=== PATIENT | male | born 1955 | race Caucasian/White ===

== ENCOUNTER 2017-05-10 22:55 | Observation (INO) | payer MEDICARE, MEDICAID ==
[2017-05-10] MEDS ORDERED: Furosemide 40 MG/4 ML VIAL IVPUSH ONE (23:37)
--- NOTE | 2017-05-11 00:28 | EDM.PDOC ---
ED HPI GENERAL MEDICAL PROBLEM - General Chief Complaint: General Stated Complaint: BLE edema Time Seen by Provider: 05/10/17 23:00 - History of Present Illness INITIAL COMMENTS - FREE TEXT/NARRATIVE: C/O of severe lower extremity edema and a 8 pound weight gain in the last 4 days. Onset: Gradual Duration: Day(s): Location: Reports: Lower Extremity, Left, Lower Extremity, Right Quality: Reports: Dull - Related Data Allergies Allergy/AdvReac Type Severity Reaction Status Date / Time No Known Allergies Allergy Verified 05/10/17 23:03 Home Meds: Home Meds ALPRAZolam [Alprazolam] 1 tab PO ASDIRECTED PRN 04/07/17 [History] Insulin Aspart [NovoLOG] 1 injection SUBCUT TID 04/07/17 [History] Insulin Glarg,Human.Rec.Analog [LantUS Solostar] 60 units SUBCUT QPM 04/07/17 [ History] Metoprolol Tartrate 50 mg PO BID 04/07/17 [History] Omeprazole 20 mg PO DAILY 04/07/17 [History] Rosuvastatin [Crestor] 10 mg PO DAILY 04/07/17 [History] Sertraline [Zoloft] 50 mg PO DAILY 04/07/17 [History] Zolpidem [Ambien] 10 mg PO BEDTIME PRN 04/07/17 [History] amLODIPine [Norvasc] 5 mg PO DAILY 04/07/17 [History] oxyCODONE 10 mg PO ASDIRECTED PRN 04/07/17 [History] traMADol [Ultram] 50 mg PO Q6H 04/07/17 [History] Past Medical History Cardiovascular History: Reports: Hypertension, Stents Neurological History: Reports: Neuropathy, Diabetic Endocrine/Metabolic History: Reports: Diabetes, Type II Dermatologic History: Reports: Other (See Below) Other Dermatologic History: HX OF DIABETIC FOOT ULCER Social & Family History - Family History Family Medical History: Noncontributory - Tobacco Use Smoking Status *Q: Never Smoker Second Hand Smoke Exposure: No ED ROS GENERAL - Review of Systems Review Of Systems: ROS reveals no pertinent complaints other than HPI. ED EXAM, GENERAL - Physical Exam Exam: See Below Free Text/Narrative:: 4 + pitting edema from the knees down. Exam Limited By: No Limitations General Appearance: Alert, WD/WN Nose: Normal Inspection Throat/Mouth: Normal Inspection Head: Atraumatic Respiratory/Chest: Crackles Cardiovascular: Normal Peripheral Pulses Back Exam: Normal Inspection Extremities: Normal Inspection Neurological: Alert, Oriented Psychiatric: Normal Affect Skin Exam: Warm, Dry Course - Vital Signs Last Recorded V/S: Last Vital Signs Temp 97.2 F 05/10/17 23:20 Pulse 76 05/10/17 23:20 Resp 18 05/10/17 23:20 BP 150/82 H 05/10/17 23:20 Pulse Ox 97 05/10/17 23:20 - Orders/Labs/Meds Orders: Active Orders 24 hr Category Date Time Status Patient Status Manage Transfer [TRANSFER] Routine ADT 05/11/17 00:10 Ordered Cardiac Monitoring [RC] . DIRECTED Care 05/11/17 00:10 Ordered Chest 2V [CR] Stat Exams 05/10/17 23:21 Taken Resuscitation Status Routine Resus Stat 05/11/17 00:13 Ordered Labs: Laboratory Tests 05/10/17 05/10/17 Range/Units 23:40 23:40 WBC 9.3 (5.0-10.0) 10^3/uL RBC 4.41 L (4.50-6.00) 10^6/uL Hgb 13.0 L (14.0-18.0) g/dL Hct 38.8 L (40.0-54.0) % MCV 88.0 (82.0-94.0) fL MCH 29.5 (27.0-32.0) pg MCHC 33.5 (33.0-38.0) g/dL RDW Coeff of Anne 13.2 (11.0-15.0) % Plt Count 241 (150-400) 10^3/uL Neut % (Auto) 68.3 (35-85) % Lymph % (Auto) 20.0 (10-55) % [place] % (Auto) 9.7 (0-16) % Eos % (Auto) 1.7 (0-5) % Baso % (Auto) 0.3 (0-3) % Neut # (Auto) 6.33 (1.80-7.00) 10^3/uL Lymph # (Auto) 1.85 (1.00-4.80) 10^3/uL [place] # (Auto) 0.90 H (0.00-0.80) 10^3/uL Eos # (Auto) 0.16 (0.00-0.45) 10^3/uL Baso # (Auto) 0.03 10^3/uL Sodium 139 (136-145) mEq/L Potassium 3.1 L (3.5-5.0) mEq/L Chloride 99 (98-106) mEq/L Carbon Dioxide 32 (21-32) mmol/L BUN 21 H (7-18) mg/dL Creatinine 1.5 H (0.7-1.3) mg/dL Est Cr Clr Drug Dosing 56.97 mL/min Estimated GFR (MDRD) 47 L (>=60) mL/min Glucose 110 H D (75-99) mg/dL Calcium 8.6 (8.4-10.1) mg/dL Total Bilirubin 0.4 (0.0-1.0) mg/dL AST 23 (15-37) U/L ALT 31 (12-78) U/L Alkaline Phosphatase 76 (46-116) U/L [id number] Pept 1164 H (0-1000) pg/nL Total Protein 6.6 (6.4-8.2) g/dL Albumin 3.2 L (3.4-5.0) g/dL Meds: Medications Discontinued Medications Generic Name Dose Route Start Last Admin Trade Name Homerq PRN Reason Stop Dose Admin Furosemide 40 mg 05/10/17 23:37 05/10/17 23:41 Lasix IVPUSH 05/10/17 23:38 40 mg ONETIME ONE Administration Departure - Departure Time of Disposition: 00:25 (Will admit to [facility] for IV lasix and potassium replacement.) Disposition: Refer to Observation Condition: Fair Clinical Impression: CHF exacerbation, CHF, Congestive heart failure - Discharge Information Forms: ED Department Discharge - My Orders Last 24 Hours: My Active Orders 05/10/17 23:21 Chest 2V [CR] Stat 05/11/17 00:10 Patient Status Manage Transfer [TRANSFER] Routine Cardiac Monitoring [RC] . DIRECTED 05/11/17 00:13 Resuscitation Status Routine - Assessment/Plan Admission H&P: Please use this note as an admission H&P Last 24 Hours: My Active Orders 05/10/17 23:21 Chest 2V [CR] Stat 05/11/17 00:10 Patient Status Manage Transfer [TRANSFER] Routine Cardiac Monitoring [RC] . DIRECTED 05/11/17 00:13 Resuscitation Status Routine
[2017-05-11] MEDS ORDERED: Enoxaparin 40 MG/0.4 ML Syringe SUBCUT SCH ×2 (01:27→20:00)
[2017-05-11] MEDS ORDERED: Potassium Chloride 10 MEQ in Premix Bag 1 BAG IV ONE (01:27)
[2017-05-11] MEDS ORDERED: Ondansetron 4 MG Tab.DIS PO PRN (01:27)
[2017-05-11] MEDS ORDERED: oxyCODONE 5 MG Tab PO PRN ×2 (01:27→05:14)
[2017-05-11] MEDS ORDERED: ALPRAZolam 0.25 MG Tab PO PRN (01:27)
[2017-05-11] MEDS ORDERED: Furosemide 40 MG/4 ML VIAL IVPUSH SCH (01:27)
[2017-05-11] MEDS ORDERED: traMADol 50 MG Tab PO SCH (01:27)
[2017-05-11] MEDS ORDERED: Zolpidem 5 MG Tab PO PRN (01:27)
[2017-05-11] MEDS ORDERED: Sodium Chloride 0.9% 250 ML IV SCH (02:30)
[2017-05-11] MEDS ORDERED: TRAMADOL 50 MG PO PRN (02:37)
[2017-05-11] MEDS ORDERED: Pantoprazole 40 MG Tab.CR PO SCH (07:00)
[2017-05-11] MEDS: CILOSTAZOL 100 MG PO SCH (07:05)
[2017-05-11] MEDS ORDERED: Simvastatin 40 MG Tab PO SCH ×2 (08:00→20:00)
[2017-05-11] MEDS: Furosemide 40 MG/4 ML VIAL IVPUSH SCH ×2 (08:00→16:01)
[2017-05-11] MEDS ORDERED: Insulin Aspart 100 Units/ML 3 ML Pen SUBCUT SCH (08:00)
[2017-05-11] MEDS ORDERED: amLODIPine 2.5 MG Tab PO SCH (08:00)
[2017-05-11] MEDS: Potassium Chloride 10 MEQ Tab.ER PO SCH ×2 (08:00→18:14)
[2017-05-11] MEDS ORDERED: Sertraline 25 MG Tab PO SCH (08:00)
[2017-05-11] MEDS: PTOM-AMLODIPINE 5MG TAB PO SCH (08:40)
[2017-05-11] MEDS: OMEPRAZOLE 20 MG PO SCH (08:41)
[2017-05-11] MEDS: PTOM-Gabapentin 300 MG Cap PO SCH ×2 (08:41→20:08)
[2017-05-11] MEDS: PTOM-Metoprolol Tartrate 50 MG Tab PO SCH ×2 (08:41→20:15)
[2017-05-11] MEDS: Spironolactone 25 MG Tab PO SCH (08:42)
[2017-05-11] MEDS: SERTRALINE 50 MG PO SCH (08:43)
[2017-05-11] MEDS: Insulin Aspart 100 Units/ML 3 ML Pen SUBCUT SCH ×3 (08:44→18:35)
--- NOTE | 2017-05-11 09:24 | PN ---
DATE: 05/11/2017 S: John Batista, who came in with mild congestive heart failure, short of breath, and edema. O: NECK: Supple. CHEST: Clear. CARDIAC: Sounds are good. EXTREMITIES: Does have +1 pretibial edema. ASSESSMENT: FLUID OVERLOAD. P: Continue Lasix. I am going to get a D-dimer on this morning. Start him on some Aldactone and monitor his blood sugars closely. This violetta is a noncompliant patient. UNIQUE/SYMONE /[id number]
[2017-05-11] MEDS ORDERED: [UNRECOGNIZED DRUG - OTHER] SUBCUT SCH (20:00)
[2017-05-11] MEDS ORDERED: INSULIN GLARGINE SUBCUT SCH (20:00)
[2017-05-11] MEDS ORDERED: Insulin Detemir 100 Units/ML 3 ML Pen SUBCUT SCH (20:00)
[2017-05-12] MEDS: OMEPRAZOLE 20 MG PO SCH (06:23)
[2017-05-12] MEDS: CILOSTAZOL 100 MG PO SCH (06:23)
[2017-05-12 08:05] LABS: CHLORIDE,CL 103 mEq/L (98-106); SODIUM,NA 140 mEq/L (136-145)
[2017-05-12] MEDS: Insulin Aspart 100 Units/ML 3 ML Pen SUBCUT SCH (08:09)
[2017-05-12] MEDS: SERTRALINE 50 MG PO SCH (08:10)
[2017-05-12] MEDS: PTOM-Gabapentin 300 MG Cap PO SCH (08:11)
[2017-05-12] MEDS: PTOM-AMLODIPINE 5MG TAB PO SCH (08:11)
[2017-05-12] MEDS: Spironolactone 25 MG Tab PO SCH (08:14)
[2017-05-12] MEDS: Potassium Chloride 10 MEQ Tab.ER PO SCH (08:15)
[2017-05-12] MEDS: Furosemide 40 MG/4 ML VIAL IVPUSH SCH (08:16)
[2017-05-12] MEDS: PTOM-Metoprolol Tartrate 50 MG Tab PO SCH (08:20)
[2017-05-12 09:33] VITALS: BP 150/80
--- NOTE | 2017-05-13 07:14 | DISCH ---
HOSPITAL COURSE: John Batista is a 62-year-old gentleman who presents himself to the emergency room short of breath, peripheral edema, admitted to the hospital with left ventricular congestive heart failure, started on Lasix. He responded nicely. At the time of discharge, neck was supple. Chest clear. Cardiac sounds were good, had minimal edema. Did start him on Aldactone while here in the hospital. He was also hypokalemic and we started him on oral potassium that corrected up to 3.6 prior to discharge. Rest of lab, CBC looked good. D-dimer was 0.56. Magnesium was good. Blood sugar is a little bit high, but he is a very noncompliant patient. ProBNP 1164. I gave him potassium 3.1 on admission, 3.6 discharge. DISPOSITION: The patient was discharged home. We will have an echo as an outpatient and see him back in the clinic for panel 8 and A1c in 9 days. DISCHARGE MEDICATIONS: Home medications plus Aldactone 12.5 daily, Micro-K 10 mEq b.i.d. DISCHARGE DIAGNOSIS: 1. LEFT VENTRICULAR SYSTOLIC CONGESTIVE HEART FAILURE. 2. PERIPHERAL EDEMA. 3. DIABETES MELLITUS. 4. HYPERTENSION. 5. HYPERLIPIDEMIA. 6. PERIPHERAL NEUROPATHY. UNIQUE/SYMONE /[id number]
== END 2017-05-12 10:42 | disposition home or self-care (01) ==
LOC: CC.ED 22:55 → CC.MS 05-11 01:10 → UNDOADMOB 05-11 01:10 → CC.MS 05-11 01:27
PROVIDERS: ADMIT Nurse Practitioner Family; ATTEND General Practice
DX: E87.70 Fluid overload, unspecified (principal); I50.1 Left ventricular failure, unspecified; R60.9 Edema, unspecified; I10 Essential (primary) hypertension; E11.40 Type 2 diabetes mellitus with diabetic neuropathy, unspecified; E78.5 Hyperlipidemia, unspecified; G62.9 Polyneuropathy, unspecified; Z79.899 Other long term (current) drug therapy; Z79.4 Long term (current) use of insulin
CPT/HCPCS: 36415; 71020; 80053; 82962; 83735; 83880; 85025; 85027; 85379; 93005; 96365; 96366; 96372; 96375; 96376; 99285; A9270; G0378; J1650; J1940; J3480; J7050; 93010; 96374; 99217; 99220

== ENCOUNTER 2020-01-27 05:25 | Emergency (ER) | payer MEDICARE, OTHER, MEDICAID ==
[2020-01-27] MEDS ORDERED: Iopamidol 755 Mg/ML 200 ML Bottle IV ONE (05:38)
[2020-01-27] MEDS ORDERED: Sodium Bicarbonate 8.4% 50 MEQ/50 ML Syringe ONE (05:44)
[2020-01-27] MEDS ORDERED: Sodium Chloride 0.9% 1,000 ML IV SCH (05:45)
[2020-01-27 06:08] LABS: CHLORIDE,CL 93 mEq/L (98-106); SODIUM,NA 131 mEq/L (136-145)
[2020-01-27] MEDS ORDERED: Sodium Bicarbonate 8.4% 50 MEQ/50 ML Syringe IVPUSH ONE ×2 (06:24→06:25)
[2020-01-27] MEDS ORDERED: Dextrose 5% in Water 1,000 ML IV SCH ×2 (06:30→07:00)
--- NOTE | 2020-01-27 06:57 | EDM.PDOC ---
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 Assessment/Plan Last 24 Hours: My Active Orders 01/27/20 Abdomen Pelvis wo Cont [CT] Routine Cervical Spine wo Cont [CT] Routine Chest wo Cont [CT] Routine Head wo Cont [CT] Routine Max Facial Sinus wo Cont [CT] Routine 01/27/20 05:39 Cooling Warming Measures [RC] ASDIRECTED 01/27/20 07:00 Dextrose 5% in Water 1,000 ml IV ASDIRECTED 01/27/20 07:53 Vaccines to be Administered [RC] PER UNIT ROUTINE Diphth,Pertuss(Acell),Tet Vac [Adacel] 0.5 ml IM .ONCE ONE Plan: See above
[2020-01-27] MEDS ORDERED: Sodium Bicarbonate 8.4% 50 MEQ/50 ML SDV ONE (07:32)
[2020-01-27] MEDS ORDERED: Diphtheria,Pertussis(Acell),Tetanus Vaccine 0.5 ML Syringe IM ONE (07:53)
[2020-01-27] MEDS ORDERED: Morphine 2 MG/ML SYRINGE IVPUSH ONE (08:00)
[2020-01-27] MEDS ORDERED: Morphine 4 MG/ML VIAL IVPUSH ONE (08:00)
== END 2020-01-27 08:42 ==
LOC: CC.ED 05:25
DX: T79.6XXA Traumatic ischemia of muscle, initial encounter (principal); T68.XXXA Hypothermia, initial encounter; S22.43XA Multiple fractures of ribs, bilateral, initial encounter for closed fracture; S12.600A Unspecified displaced fracture of seventh cervical vertebra, initial encounter for closed fracture; S22.019A Unspecified fracture of first thoracic vertebra, initial encounter for closed fracture; S01.01XA Laceration without foreign body of scalp, initial encounter; S05.11XA Contusion of eyeball and orbital tissues, right eye, initial encounter; S40.022A Contusion of left upper arm, initial encounter; S40.021A Contusion of right upper arm, initial encounter; S80.12XA Contusion of left lower leg, initial encounter; S80.11XA Contusion of right lower leg, initial encounter; N17.9 Acute kidney failure, unspecified; E10.40 Type 1 diabetes mellitus with diabetic neuropathy, unspecified; D72.829 Elevated white blood cell count, unspecified; Z23 Encounter for immunization; I11.0 Hypertensive heart disease with heart failure; I50.9 Heart failure, unspecified; I25.10 Atherosclerotic heart disease of native coronary artery without angina pectoris; Z95.5 Presence of coronary angioplasty implant and graft; K21.9 Gastro-esophageal reflux disease without esophagitis; M19.90 Unspecified osteoarthritis, unspecified site; F32.9 Major depressive disorder, single episode, unspecified; Z95.1 Presence of aortocoronary bypass graft; Z79.899 Other long term (current) drug therapy; Z79.82 Long term (current) use of aspirin; V49.9XXA Car occupant (driver) (passenger) injured in unspecified traffic accident, initial encounter
CPT/HCPCS: 36415; 70450; 70486; 71250; 72125; 74176; 80053; 80305-QW; 80307; 81001; 82550; 83735; 84484; 85025; 85610; 85730; 90471; 90715; 93005; 93010; 96361; 96374; 96375; 96376; 99284; 99285-25; J2270; J7060; Q9967

== ENCOUNTER 2020-02-13 10:16 | Inpatient (IN) | payer OTHER, MEDICARE, MEDICAID ==
[2020-02-13] MEDS ORDERED: Sodium Chloride 0.9% 10 ML Syringe FLUSH PRN (10:41)
[2020-02-13] MEDS ORDERED: Docusate Sodium 100 MG Cap PO PRN (10:41)
[2020-02-13] MEDS ORDERED: Ibuprofen 200 MG Tab PO PRN (10:41)
[2020-02-13] MEDS ORDERED: Polyethylene Glycol 3350 Powder 17 GM Packet PO PRN (10:41)
[2020-02-13] MEDS: Piperacillin/Tazobactam 3.375 GM in Sodium Chloride 0.9% 50 ML IV SCH ×3 (11:46→23:56)
[2020-02-13] MEDS ORDERED: traMADol 50 MG Tab PO PRN (13:34)
[2020-02-13] MEDS ORDERED: Nystatin Crm 30 GM Tube TOP PRN (13:34)
[2020-02-13] MEDS ORDERED: Nitroglycerin 0.4 MG Tab.SL SL PRN (13:45)
[2020-02-13] MEDS: Vancomycin 1 GM, Vancomycin 250 MG in Sodium Chloride 0.9% 250 ML IV SCH (14:44)
[2020-02-13] MEDS: Potassium Chloride 10 MEQ Tab.ER PO SCH (17:24)
[2020-02-13] MEDS ORDERED: Insulin Lispro 100 Units/ML 3 ML Vial SUBCUT SCH (17:30)
[2020-02-13] MEDS: Insulin Lispro 100 Units/ML 3 ML Vial SUBCUT SCH ×2 (18:03→20:44)
[2020-02-13] MEDS: Metoprolol Tartrate 50 MG Tab PO SCH (19:43)
[2020-02-13] MEDS: Gabapentin 300 MG Cap PO SCH (19:43)
[2020-02-13] MEDS: Simvastatin 20 MG Tab PO SCH (19:43)
[2020-02-13] MEDS: Enoxaparin 40 MG/0.4 ML Syringe SUBCUT SCH (19:47)
[2020-02-13] MEDS ORDERED: FLUTICASONE PROPIONATE IH SCH (20:00)
[2020-02-13] MEDS ORDERED: Zolpidem 5 MG Tab PO PRN (20:00)
[2020-02-13] MEDS: Insulin Glargine,Human Rec. Analog 100 Units/ML 3 ML Pen SUBCUT SCH (22:07)
[2020-02-14] MEDS: Piperacillin/Tazobactam 3.375 GM in Sodium Chloride 0.9% 50 ML IV SCH ×3 (05:52→18:16)
[2020-02-14] MEDS: Pantoprazole 40 MG Tab.CR PO SCH (06:04)
[2020-02-14] MEDS: Acetaminophen 325 MG Tab PO PRN ×2 (06:37→19:18)
[2020-02-14] MEDS: Sertraline 25 MG Tab PO SCH (07:43)
[2020-02-14] MEDS: Furosemide 80 MG Tab PO SCH (07:43)
[2020-02-14] MEDS: Spironolactone 25 MG Tab PO SCH (07:45)
[2020-02-14] MEDS: Gabapentin 300 MG Cap PO SCH ×2 (07:45→19:19)
[2020-02-14] MEDS: Potassium Chloride 10 MEQ Tab.ER PO SCH ×2 (07:45→17:32)
[2020-02-14] MEDS: Multivitamin Tab PO SCH (07:45)
[2020-02-14] MEDS: Aspirin 325 MG Tab.EC PO SCH (07:46)
[2020-02-14] MEDS: amLODIPine 10 MG Tab PO SCH (07:46)
[2020-02-14] MEDS: Metoprolol Tartrate 50 MG Tab PO SCH ×2 (07:46→19:19)
[2020-02-14] MEDS: Cholecalciferol (Vitamin D3) 25 MCG Tab PO SCH (07:46)
[2020-02-14] MEDS: Vancomycin 1 GM, Vancomycin 250 MG in Sodium Chloride 0.9% 250 ML IV SCH (07:47)
[2020-02-14] MEDS: Insulin Lispro 100 Units/ML 3 ML Vial SUBCUT SCH ×4 (07:53→20:52)
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
[2020-02-14] MEDS ORDERED: Insulin Lispro 100 Units/ML 3 ML Vial SUBCUT ONE (19:00)
[2020-02-14] MEDS: Simvastatin 20 MG Tab PO SCH (19:20)
[2020-02-14] MEDS: Enoxaparin 40 MG/0.4 ML Syringe SUBCUT SCH (19:20)
[2020-02-14] MEDS: Insulin Glargine,Human Rec. Analog 100 Units/ML 3 ML Pen SUBCUT SCH (19:25)
[2020-02-15] MEDS: Piperacillin/Tazobactam 3.375 GM in Sodium Chloride 0.9% 50 ML IV SCH ×5 (00:08→23:30)
[2020-02-15] MEDS: Vancomycin 1 GM, Vancomycin 250 MG in Sodium Chloride 0.9% 250 ML IV SCH (02:18)
[2020-02-15] MEDS: Pantoprazole 40 MG Tab.CR PO SCH (06:42)
[2020-02-15] MEDS: Aspirin 325 MG Tab.EC PO SCH (07:22)
[2020-02-15] MEDS: Furosemide 80 MG Tab PO SCH (07:22)
[2020-02-15] MEDS: Metoprolol Tartrate 50 MG Tab PO SCH ×2 (07:23→19:13)
[2020-02-15] MEDS: amLODIPine 10 MG Tab PO SCH (07:23)
[2020-02-15] MEDS: Sertraline 25 MG Tab PO SCH (07:23)
[2020-02-15] MEDS: Potassium Chloride 10 MEQ Tab.ER PO SCH ×2 (07:24→17:07)
[2020-02-15] MEDS: Gabapentin 300 MG Cap PO SCH ×2 (07:24→19:13)
[2020-02-15] MEDS: Multivitamin Tab PO SCH (07:24)
[2020-02-15] MEDS: Cholecalciferol (Vitamin D3) 25 MCG Tab PO SCH (07:25)
[2020-02-15] MEDS: Spironolactone 25 MG Tab PO SCH (07:25)
[2020-02-15] MEDS: Insulin Lispro 100 Units/ML 3 ML Vial SUBCUT SCH ×4 (07:32→20:10)
[2020-02-15] MEDS: Acetaminophen 325 MG Tab PO PRN (07:37)
--- NOTE | 2020-02-15 12:16 | PN ---
DATE: 02/15/2020 S: John has been doing well, has not had any big concerns. PT has been doing wound debridement and actually drained a lot of blood from this hematoma underneath the wound on his right ferrari and it looks much better. He has not spiked any temperatures, his vitals have been fine. Sugar is still running high and we will adjust his insulin appropriately. No other new concerns. O: GENERAL: He is pleasant and cooperative. LUNGS: Lung sounds are clear. CARDIAC: Tones are regular. ABDOMEN: No abdominal pain. EXTREMITIES: No peripheral edema. The most impressive wound on his right anterior ferrari is much less swollen and edematous. The underlying hematoma has drained quite a bit. There is still some whitish yellow drainage, but culture thus far negative. ASSESSMENT: 1. POSTTRAUMATIC WOUND INFECTION. 2. TYPE 2 DIABETES, REQUIRING INSULIN. 3. CHRONIC RENAL INSUFFICIENCY. P: We will continue with current cares. Formal culture negative. I am going to stop his vancomycin. Repeat his routine lab work tomorrow. GILMA/SYMONE /[id number]
[2020-02-15] MEDS: ALPRAZolam 0.25 MG Tab PO PRN (16:46)
[2020-02-15] MEDS: Simvastatin 20 MG Tab PO SCH (19:13)
[2020-02-15] MEDS: Enoxaparin 40 MG/0.4 ML Syringe SUBCUT SCH (19:14)
[2020-02-15] MEDS: oxyCODONE 5 MG Tab PO PRN (19:18)
[2020-02-15] MEDS: Insulin Glargine,Human Rec. Analog 100 Units/ML 3 ML Pen SUBCUT SCH (20:08)
[2020-02-16] MEDS: oxyCODONE 5 MG Tab PO PRN (03:51)
[2020-02-16] MEDS: Piperacillin/Tazobactam 3.375 GM in Sodium Chloride 0.9% 50 ML IV SCH ×4 (06:08→23:51)
[2020-02-16] MEDS: Pantoprazole 40 MG Tab.CR PO SCH (06:08)
[2020-02-16] MEDS: Cholecalciferol (Vitamin D3) 25 MCG Tab PO SCH (07:39)
[2020-02-16] MEDS: Gabapentin 300 MG Cap PO SCH ×2 (07:40→19:39)
[2020-02-16] MEDS: Spironolactone 25 MG Tab PO SCH (07:40)
[2020-02-16] MEDS: Furosemide 80 MG Tab PO SCH (07:41)
[2020-02-16] MEDS: amLODIPine 10 MG Tab PO SCH (07:42)
[2020-02-16] MEDS: Sertraline 25 MG Tab PO SCH (07:42)
[2020-02-16] MEDS: Aspirin 325 MG Tab.EC PO SCH (07:43)
[2020-02-16] MEDS: Potassium Chloride 10 MEQ Tab.ER PO SCH ×2 (07:43→17:06)
[2020-02-16] MEDS: Multivitamin Tab PO SCH (07:43)
[2020-02-16] MEDS: Metoprolol Tartrate 50 MG Tab PO SCH ×2 (07:43→19:39)
[2020-02-16] MEDS: Insulin Lispro 100 Units/ML 3 ML Vial SUBCUT SCH ×4 (07:46→21:20)
--- NOTE | 2020-02-16 11:10 | PN ---
DATE: 02/16/2020 S: John continues to do well. Physical therapy got most of his hematoma to drain and the wound looks much better. Overall wound care looks wonderful. He is not having any significant drainage, no pain and he has not spiked any temps. His white count remains normal and his CRP is now in the normal range. We did stop his vancomycin yesterday after wound culture showed no growth. O: GENERAL: He is pleasant and cooperative. NECK: Veins flat. LUNGS: Clear. CARDIAC: Tones regular. EXTREMITIES: No peripheral edema. All wounds look markedly improved. They are clean and dry. Minimal drainage of clear fluid from that right ferrari now. ASSESSMENT: 1. WOUND INFECTIONS, IMPROVED. 2. DIABETES MELLITUS, INSULIN REQUIRING. 3. CHRONIC RENAL INSUFFICIENCY. 4. MEDICATION NONCOMPLIANCE. P: John will likely need swing bed placement for wound cares as he is unable and unwilling at times to do this appropriately, home health actually stopped going to his house just due to noncompliance. Labs look good. We will leave him on Zosyn for now. In swing bed, I think he could transition to orals. GILMA/SYMONE /[id number]
[2020-02-16] MEDS: ALPRAZolam 0.25 MG Tab PO PRN (16:06)
[2020-02-16] MEDS: Enoxaparin 40 MG/0.4 ML Syringe SUBCUT SCH (19:39)
[2020-02-16] MEDS: Simvastatin 20 MG Tab PO SCH (19:39)
[2020-02-16] MEDS ORDERED: Insulin Glargine,Human Rec. Analog 100 Units/ML 3 ML Pen SUBCUT SCH (20:00)
[2020-02-17] MEDS: Piperacillin/Tazobactam 3.375 GM in Sodium Chloride 0.9% 50 ML IV SCH ×2 (05:58→11:29)
[2020-02-17] MEDS: Pantoprazole 40 MG Tab.CR PO SCH (06:01)
[2020-02-17] MEDS: oxyCODONE 5 MG Tab PO PRN (06:15)
[2020-02-17] MEDS: Gabapentin 300 MG Cap PO SCH (07:48)
[2020-02-17] MEDS: Furosemide 80 MG Tab PO SCH (07:49)
[2020-02-17] MEDS: Multivitamin Tab PO SCH (07:49)
[2020-02-17] MEDS: Potassium Chloride 10 MEQ Tab.ER PO SCH (07:49)
[2020-02-17] MEDS: Aspirin 325 MG Tab.EC PO SCH (07:49)
[2020-02-17] MEDS: amLODIPine 10 MG Tab PO SCH (07:50)
[2020-02-17] MEDS: Cholecalciferol (Vitamin D3) 25 MCG Tab PO SCH (07:51)
[2020-02-17] MEDS: Metoprolol Tartrate 50 MG Tab PO SCH (07:51)
[2020-02-17] MEDS: Spironolactone 25 MG Tab PO SCH (07:52)
[2020-02-17] MEDS: Insulin Lispro 100 Units/ML 3 ML Vial SUBCUT SCH ×2 (07:53→12:17)
[2020-02-17] MEDS ORDERED: Sertraline 25 MG Tab PO SCH ×2 (08:00→20:00)
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
[2020-02-17] MEDS ORDERED: Take Home: Amoxicillin/Clavulanate K 875-125 MG Tab, 2 Tab Pack PO ONE (11:16)
[2020-02-17] MEDS ORDERED: Insulin Lispro 100 Units/ML 3 ML Vial SUBCUT ONE (11:51)
[2020-02-17 12:02] VITALS: BP 155/67; PULSE 72
[2020-02-17] MEDS ORDERED: Amoxicillin/Clavulanate K 875-125 MG Tab PO ONE (16:54)
== END 2020-02-17 16:55 | disposition home or self-care (01) | DRG 923 ==
LOC: CC.MS 10:16 → UNDOADMIN 10:16 → CC.MS 10:41
PROVIDERS: ADMIT Nurse Practitioner Family; ATTEND Family Medicine
DX: T79.8XXA Other early complications of trauma, initial encounter (principal); L02.415 Cutaneous abscess of right lower limb; I13.0 Hypertensive heart and chronic kidney disease with heart failure and stage 1 through stage 4 chronic kidney disease, or unspecified chronic kidney disease; I50.32 Chronic diastolic (congestive) heart failure; L03.115 Cellulitis of right lower limb; I25.10 Atherosclerotic heart disease of native coronary artery without angina pectoris; E11.42 Type 2 diabetes mellitus with diabetic polyneuropathy; N18.9 Chronic kidney disease, unspecified; E78.5 Hyperlipidemia, unspecified; E10.22 Type 1 diabetes mellitus with diabetic chronic kidney disease; E10.51 Type 1 diabetes mellitus with diabetic peripheral angiopathy without gangrene; Z79.899 Other long term (current) drug therapy; Z79.82 Long term (current) use of aspirin; Z91.048 Other nonmedicinal substance allergy status; Z95.1 Presence of aortocoronary bypass graft; Z98.890 Other specified postprocedural states; Z91.19 Patient's noncompliance with other medical treatment and regimen; S12.600D Unspecified displaced fracture of seventh cervical vertebra, subsequent encounter for fracture with routine healing; V49.9XXD Car occupant (driver) (passenger) injured in unspecified traffic accident, subsequent encounter; S22.019D Unspecified fracture of first thoracic vertebra, subsequent encounter for fracture with routine healing; S22.49XD Multiple fractures of ribs, unspecified side, subsequent encounter for fracture with routine healing
CPT/HCPCS: 36415; 73590-RT; 80048; 82962; 85025; 86140; 87070; 97161-GP; 97597-GP; 97598-GP; A9270-GY; J1650; J1815-GY; J2543; J3370; J7050

== ENCOUNTER 2020-04-23 13:11 | Observation (INO) | payer MEDICARE, MEDICAID ==
[2020-04-23] MEDS ORDERED: Sodium Chloride 0.9% 10 ML Syringe FLUSH PRN (16:53)
[2020-04-23] MEDS ORDERED: Temazepam 15 MG Cap PO PRN (16:53)
[2020-04-23] MEDS ORDERED: Acetaminophen 325 MG Tab PO PRN (16:53)
[2020-04-23] MEDS ORDERED: traMADol 50 MG Tab PO PRN (16:56)
[2020-04-23] MEDS ORDERED: Silver Sulfadiazine 1% Crm 20 GM Tube TOP PRN (16:56)
[2020-04-23] MEDS ORDERED: Polyethylene Glycol 3350 Powder 17 GM Packet PO PRN (16:56)
[2020-04-23] MEDS ORDERED: Nitroglycerin 0.4 MG Tab.SL SL PRN (16:56)
[2020-04-23] MEDS ORDERED: oxyCODONE 5 MG Tab PO PRN (16:56)
[2020-04-23] MEDS ORDERED: Insulin Lispro 100 Units/ML 3 ML Vial SUBCUT SCH (17:30)
[2020-04-23] MEDS: Insulin Lispro 100 Units/ML 3 ML Vial SUBCUT SCH (17:50)
[2020-04-23] MEDS ORDERED: Glucagon,Human Recombinant 1 MG Vial IM PRN (18:00)
[2020-04-23] MEDS: Potassium Chloride 10 MEQ Tab.ER **PT OWN MED PO SCH (19:37)
[2020-04-23] MEDS ORDERED: SYMBICORT INH SCH (20:00)
[2020-04-23] MEDS ORDERED: Zolpidem 10 MG TAB PO PRN (20:00)
[2020-04-23] MEDS: methylPREDNISolone Sodium Succinate 125 MG/2 ML SDV IVPUSH SCH (21:23)
[2020-04-23] MEDS: Gabapentin 300 MG Cap PO SCH (21:31)
[2020-04-23] MEDS: Metoprolol Tartrate 50 MG Tab PO SCH (21:31)
[2020-04-23] MEDS: ROSUVASTATIN 5 MG PO SCH (21:31)
[2020-04-23] MEDS: Insulin Glargine,Human Rec. Analog 100 Units/ML 3 ML Pen SUBCUT SCH (21:32)
[2020-04-24] MEDS ORDERED: OMEPRAZOLE 20 MG PO SCH (07:00)
[2020-04-24] MEDS: CILOSTAZOL 100 MG PO SCH (08:00)
[2020-04-24] MEDS ORDERED: Fluticasone Propionate Nasal Spray 16 GM Bottle NASBOTH SCH (08:00)
[2020-04-24] MEDS: MAG PO SCH (08:01)
[2020-04-24] MEDS: CALCIUM CARBONATE PO SCH (08:01)
[2020-04-24] MEDS: ASPIRIN PO SCH (08:01)
[2020-04-24] MEDS: AMLODIPINE 5 MG PO SCH (08:01)
[2020-04-24] MEDS: Potassium Chloride 10 MEQ Tab.ER **PT OWN MED PO SCH ×2 (08:02→17:17)
[2020-04-24] MEDS: SERTRALINE 50 MG PO SCH (08:02)
[2020-04-24] MEDS: Insulin Lispro 100 Units/ML 3 ML Vial SUBCUT SCH ×3 (08:03→17:18)
[2020-04-24] MEDS: Gabapentin 300 MG Cap PO SCH ×2 (08:05→20:10)
[2020-04-24] MEDS: Multivitamin Tab PO SCH (08:05)
[2020-04-24] MEDS: Cholecalciferol (Vitamin D3) 25 MCG Tab PO SCH (08:06)
[2020-04-24] MEDS: methylPREDNISolone Sodium Succinate 125 MG/2 ML SDV IVPUSH SCH ×2 (08:09→19:50)
[2020-04-24] MEDS: Spironolactone 25 MG Tab PO SCH (08:10)
[2020-04-24] MEDS: Metoprolol Tartrate 50 MG Tab PO SCH ×2 (08:10→19:52)
[2020-04-24] MEDS: Furosemide 80 MG Tab PO SCH (08:10)
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
[2020-04-24] MEDS ORDERED: Enoxaparin 40 MG/0.4 ML Syringe SUBCUT SCH (12:00)
[2020-04-24] MEDS: ROSUVASTATIN 5 MG PO SCH (19:52)
[2020-04-24] MEDS: Insulin Glargine,Human Rec. Analog 100 Units/ML 3 ML Pen SUBCUT SCH (21:13)
[2020-04-25] MEDS: CILOSTAZOL 100 MG PO SCH (07:47)
[2020-04-25] MEDS: AMLODIPINE 5 MG PO SCH (07:48)
[2020-04-25] MEDS: ASPIRIN PO SCH (07:48)
[2020-04-25] MEDS: CALCIUM CARBONATE PO SCH (07:48)
[2020-04-25] MEDS: MAG PO SCH (07:48)
[2020-04-25] MEDS: Potassium Chloride 10 MEQ Tab.ER **PT OWN MED PO SCH (07:49)
[2020-04-25] MEDS: SERTRALINE 50 MG PO SCH (07:49)
[2020-04-25] MEDS: Gabapentin 300 MG Cap PO SCH (07:49)
[2020-04-25] MEDS: Cholecalciferol (Vitamin D3) 25 MCG Tab PO SCH (07:50)
[2020-04-25] MEDS: Multivitamin Tab PO SCH (07:50)
[2020-04-25] MEDS: Metoprolol Tartrate 50 MG Tab PO SCH (07:56)
[2020-04-25] MEDS: Furosemide 80 MG Tab PO SCH (07:56)
[2020-04-25 07:57] VITALS: BP 158/74; PULSE 63
[2020-04-25] MEDS: Spironolactone 25 MG Tab PO SCH (07:57)
[2020-04-25] MEDS: methylPREDNISolone Sodium Succinate 125 MG/2 ML SDV IVPUSH SCH (07:57)
[2020-04-25] MEDS: Insulin Lispro 100 Units/ML 3 ML Vial SUBCUT SCH (07:59)
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
== END 2020-04-25 10:08 | disposition home or self-care (01) ==
LOC: CC.US 13:11 → UNDOADMOB 14:50 → CC.MS 14:50
PROVIDERS: ADMIT Nurse Practitioner Family; ATTEND Family Medicine
DX: L95.9 Vasculitis limited to the skin, unspecified (principal); E10.621 Type 1 diabetes mellitus with foot ulcer; L97.329 Non-pressure chronic ulcer of left ankle with unspecified severity; L97.429 Non-pressure chronic ulcer of left heel and midfoot with unspecified severity; M79.89 Other specified soft tissue disorders; L90.5 Scar conditions and fibrosis of skin; Z79.899 Other long term (current) drug therapy; Z79.891 Long term (current) use of opiate analgesic; Z79.82 Long term (current) use of aspirin; Z88.8 Allergy status to other drugs, medicaments and biological substances
CPT/HCPCS: 36415; 80048; 82962; 85025; 85651; 86140; 93971-LT; 96372; 96374; 96376; 99217; 99220; 99225; A9270-GY; G0378; J1650; J1815-GY; J2930

== ENCOUNTER 2020-05-03 15:24 | Inpatient (IN) | payer MEDICARE, MEDICAID ==
[2020-05-03] MEDS ORDERED: Sodium Chloride 0.9% 10 ML Syringe FLUSH PRN (16:27)
[2020-05-03] MEDS ORDERED: Polyethylene Glycol 3350 Powder 17 GM Packet PO PRN (16:30)
[2020-05-03] MEDS ORDERED: Pantoprazole 40 MG Vial IVPUSH SCH (16:30)
[2020-05-03] MEDS ORDERED: Zolpidem 5 MG Tab PO PRN (17:16)
[2020-05-03] MEDS: cefTRIAXone 1 GM Vial IVPUSH SCH (17:19)
[2020-05-03] MEDS ORDERED: Lactulose Soln 10 GM/15 ML 30 ML UD Cup PO PRN (17:20)
[2020-05-03] MEDS ORDERED: ALPRAZolam 0.5 MG Tab.DIS (ODT) PO PRN (17:21)
[2020-05-03] MEDS: Enoxaparin 40 MG/0.4 ML Syringe SUBCUT SCH (17:23)
[2020-05-03] MEDS: Potassium Chloride 10 MEQ Tab.ER PO SCH (17:24)
[2020-05-03] MEDS: Sodium Chloride 0.45% 1,000 ML IV SCH (17:25)
[2020-05-03] MEDS ORDERED: Formoterol/Mometasone 200-5 MCG 8.8 GM Inhaler IH PRN (17:30)
[2020-05-03] MEDS: Pantoprazole 40 MG Vial IVPUSH SCH (19:47)
[2020-05-03] MEDS: Gabapentin 300 MG Cap PO SCH (19:47)
[2020-05-03] MEDS: Metoprolol Tartrate 50 MG Tab PO SCH (19:47)
[2020-05-03] MEDS ORDERED: Insulin Lispro 100 Units/ML 3 ML Vial SUBCUT SCH (20:00)
[2020-05-03] MEDS: Insulin Lispro 100 Units/ML 3 ML Vial SUBCUT SCH (21:50)
[2020-05-03] MEDS ORDERED: Insulin Lispro 100 Units/ML 3 ML Vial SUBCUT ONE (22:17)
[2020-05-04] MEDS ORDERED: Insulin Lispro 100 Units/ML 3 ML Vial SUBCUT ONE ×2 (00:04→21:51)
[2020-05-04] MEDS: Sodium Chloride 0.45% 1,000 ML IV SCH ×2 (04:51→17:43)
[2020-05-04] MEDS: Pantoprazole 40 MG Vial IVPUSH SCH ×2 (07:53→20:01)
[2020-05-04] MEDS: Fluticasone Propionate Nasal Spray 16 GM Bottle NASBOTH SCH (07:53)
[2020-05-04] MEDS: amLODIPine 2.5 MG Tab PO SCH (07:54)
[2020-05-04] MEDS: Gabapentin 300 MG Cap PO SCH ×2 (07:54→20:01)
[2020-05-04] MEDS: Furosemide 80 MG Tab PO SCH (07:55)
[2020-05-04] MEDS: Sertraline 25 MG Tab PO SCH (07:55)
[2020-05-04] MEDS: Potassium Chloride 10 MEQ Tab.ER PO SCH ×2 (07:55→17:52)
[2020-05-04] MEDS: Aspirin 325 MG Tab PO SCH (07:55)
[2020-05-04] MEDS: Metoprolol Tartrate 50 MG Tab PO SCH ×2 (07:56→20:01)
[2020-05-04] MEDS: Simvastatin 20 MG Tab PO SCH (07:56)
[2020-05-04] MEDS: Insulin Lispro 100 Units/ML 3 ML Vial SUBCUT SCH ×4 (07:57→21:32)
[2020-05-04] MEDS: Spironolactone 25 MG Tab PO SCH (07:57)
--- NOTE | 2020-05-04 09:48 | PCM.PN ---
- General Info Date of Service: 05/04/20 Admission Dx/Problem (Free Text): cellulitis right knee,non-compliant DM Functional Status: Reports: Pain Controlled - Review of Systems General: Reports: No Symptoms. Denies: Fever HEENT: Reports: No Symptoms Pulmonary: Reports: No Symptoms Cardiovascular: Reports: No Symptoms Gastrointestinal: Reports: No Symptoms Genitourinary: Reports: No Symptoms Musculoskeletal: Reports: No Symptoms Skin: Reports: Other (decreasing redness from the markedarea on the right knee) Neurological: Reports: No Symptoms Psychiatric: Reports: No Symptoms - Patient Data Vitals - Most Recent: Last Vital Signs Temp 37.1 C 05/04/20 08:00 Pulse 87 05/04/20 08:00 Resp 16 05/04/20 08:00 BP 149/75 H 05/04/20 08:00 Pulse Ox 98 05/04/20 08:00 Weight - Most Recent: 89.675 kg I&O - Last 24 Hours: Intake & Output 05/03/20 05/04/20 05/04/20 22:59 06:59 14:59 Intake Total 400 1000 Balance 400 1000 Lab Results Last 24 Hours: Laboratory Results - last 24 hr 05/03/20 05/03/20 05/03/20 Range/Units 15:28 15:28 15:28 WBC 20.0 H (5.0-10.0) 10^3/uL RBC 4.17 L (4.50-6.00) 10^6/uL Hgb 12.1 L (14.0-18.0) g/dL Hct 36.1 L (40.0-54.0) % MCV 86.6 (82.0-94.0) fL MCH 29.0 (27.0-32.0) pg MCHC 33.5 (33.0-38.0) g/dL RDW Coeff of Anne 13.3 (11.0-15.0) % Plt Count 352 (150-400) 10^3/uL Neut % (Auto) 85.7 H (35-85) % Lymph % (Auto) 6.9 L (10-55) % Lake % (Auto) 6.9 (0-16) % Eos % (Auto) 0.3 (0-5) % Baso % (Auto) 0.2 (0-3) % Neut # (Auto) 17.18 H (1.80-7.00) 10^3/uL Lymph # (Auto) 1.37 (1.00-4.80) 10^3/uL Lake # (Auto) 1.37 H (0.00-0.80) 10^3/uL Eos # (Auto) 0.05 (0.00-0.45) 10^3/uL Baso # (Auto) 0.03 10^3/uL Sodium 128 L (136-145) mEq/L Potassium 4.5 (3.5-5.0) mEq/L Chloride 91 L (98-106) mEq/L Carbon Dioxide 26 (21-32) mmol/L BUN 26 H (7-18) mg/dL Creatinine 1.7 H (0.7-1.3) mg/dL Est Cr Clr Drug Dosing 44.13 mL/min Estimated GFR (MDRD) 41 L (>=60) mL/min Glucose 384 H* (75-99) mg/dL POC Glucose (75-105) mg/dl Lactic Acid 1.7 (0.4-2.0) mmol/L Calcium 8.7 (8.4-10.1) mg/dL Total Bilirubin 0.6 (0.0-1.0) mg/dL AST 10 L (15-37) U/L ALT 18 (12-78) U/L Alkaline Phosphatase 115 (46-116) U/L C-Reactive Protein 24.5 H (0.2-0.8) mg/dL Total Protein 7.0 (6.4-8.2) g/dL Albumin 2.6 L (3.4-5.0) g/dL 05/03/20 05/03/20 05/03/20 Range/Units 17:51 19:52 21:07 WBC (5.0-10.0) 10^3/uL RBC (4.50-6.00) 10^6/uL Hgb (14.0-18.0) g/dL Hct (40.0-54.0) % MCV (82.0-94.0) fL MCH (27.0-32.0) pg MCHC (33.0-38.0) g/dL RDW Coeff of Anne (11.0-15.0) % Plt Count (150-400) 10^3/uL Neut % (Auto) (35-85) % Lymph % (Auto) (10-55) % Lake % (Auto) (0-16) % Eos % (Auto) (0-5) % Baso % (Auto) (0-3) % Neut # (Auto) (1.80-7.00) 10^3/uL Lymph # (Auto) (1.00-4.80) 10^3/uL Lake # (Auto) (0.00-0.80) 10^3/uL Eos # (Auto) (0.00-0.45) 10^3/uL Baso # (Auto) 10^3/uL Sodium (136-145) mEq/L Potassium (3.5-5.0) mEq/L Chloride (98-106) mEq/L Carbon Dioxide (21-32) mmol/L BUN (7-18) mg/dL Creatinine (0.7-1.3) mg/dL Est Cr Clr Drug Dosing mL/min Estimated GFR (MDRD) (>=60) mL/min Glucose (75-99) mg/dL POC Glucose 402 H* > 500 H* > 500 H* (75-105) mg/dl Lactic Acid (0.4-2.0) mmol/L Calcium (8.4-10.1) mg/dL Total Bilirubin (0.0-1.0) mg/dL AST (15-37) U/L ALT (12-78) U/L Alkaline Phosphatase (46-116) U/L C-Reactive Protein (0.2-0.8) mg/dL Total Protein (6.4-8.2) g/dL Albumin (3.4-5.0) g/dL 05/03/20 05/03/20 05/04/20 Range/Units 21:20 23:59 06:52 WBC 18.7 H (5.0-10.0) 10^3/uL RBC 4.04 L (4.50-6.00) 10^6/uL Hgb 11.5 L (14.0-18.0) g/dL Hct 34.9 L (40.0-54.0) % MCV 86.4 (82.0-94.0) fL MCH 28.5 (27.0-32.0) pg MCHC 33.0 (33.0-38.0) g/dL RDW Coeff of Anne 13.1 (11.0-15.0) % Plt Count 404 H (150-400) 10^3/uL Neut % (Auto) 84.4 (35-85) % Lymph % (Auto) 8.2 L (10-55) % Lake % (Auto) 6.7 (0-16) % Eos % (Auto) 0.5 (0-5) % Baso % (Auto) 0.2 (0-3) % Neut # (Auto) 15.83 H (1.80-7.00) 10^3/uL Lymph # (Auto) 1.53 (1.00-4.80) 10^3/uL Lake # (Auto) 1.25 H (0.00-0.80) 10^3/uL Eos # (Auto) 0.09 (0.00-0.45) 10^3/uL Baso # (Auto) 0.04 10^3/uL Sodium (136-145) mEq/L Potassium (3.5-5.0) mEq/L Chloride (98-106) mEq/L Carbon Dioxide (21-32) mmol/L BUN (7-18) mg/dL Creatinine (0.7-1.3) mg/dL Est Cr Clr Drug Dosing mL/min Estimated GFR (MDRD) (>=60) mL/min Glucose 557 H* D (75-99) mg/dL POC Glucose > 500 H* (75-105) mg/dl Lactic Acid (0.4-2.0) mmol/L Calcium (8.4-10.1) mg/dL Total Bilirubin (0.0-1.0) mg/dL AST (15-37) U/L ALT (12-78) U/L Alkaline Phosphatase (46-116) U/L C-Reactive Protein (0.2-0.8) mg/dL Total Protein (6.4-8.2) g/dL Albumin (3.4-5.0) g/dL 05/04/20 Range/Units 06:52 WBC (5.0-10.0) 10^3/uL RBC (4.50-6.00) 10^6/uL Hgb (14.0-18.0) g/dL Hct (40.0-54.0) % MCV (82.0-94.0) fL MCH (27.0-32.0) pg MCHC (33.0-38.0) g/dL RDW Coeff of Anne (11.0-15.0) % Plt Count (150-400) 10^3/uL Neut % (Auto) (35-85) % Lymph % (Auto) (10-55) % Lake % (Auto) (0-16) % Eos % (Auto) (0-5) % Baso % (Auto) (0-3) % Neut # (Auto) (1.80-7.00) 10^3/uL Lymph # (Auto) (1.00-4.80) 10^3/uL [place] # (Auto) (0.00-0.80) 10^3/uL Eos # (Auto) (0.00-0.45) 10^3/uL Baso # (Auto) 10^3/uL Sodium (136-145) mEq/L Potassium (3.5-5.0) mEq/L Chloride (98-106) mEq/L Carbon Dioxide (21-32) mmol/L BUN (7-18) mg/dL Creatinine (0.7-1.3) mg/dL Est Cr Clr Drug Dosing mL/min Estimated GFR (MDRD) (>=60) mL/min Glucose (75-99) mg/dL POC Glucose (75-105) mg/dl Lactic Acid (0.4-2.0) mmol/L Calcium (8.4-10.1) mg/dL Total Bilirubin (0.0-1.0) mg/dL AST (15-37) U/L ALT (12-78) U/L Alkaline Phosphatase (46-116) U/L C-Reactive Protein 23.1 H (0.2-0.8) mg/dL Total Protein (6.4-8.2) g/dL Albumin (3.4-5.0) g/dL [place] Results Last 24 Hours: Microbiology 05/03/20 15:47 Anaerobic Blood Culture - Final Blood Med Orders - Current: Current Medications Acetaminophen (Tylenol) 650 mg PO Q4H PRN PRN Reason: Pain (Mild 1-3)/fever Alprazolam (Alprazolam Odt) 1 mg PO TID PRN PRN Reason: Anxiety Amlodipine Besylate (Norvasc) 5 mg PO DAILY [facility] Last Admin: 05/04/20 07:54 Dose: 5 mg Documented by: Aspirin (Aspirin) 325 mg PO DAILY [facility] Last Admin: 05/04/20 07:55 Dose: 325 mg Documented by: Ceftriaxone Sodium (Rocephin) 1 gm IVPUSH Q24H [facility] Last Admin: 05/03/20 17:19 Dose: 1 gm Documented by: Cilostazol (Pletal) 100 mg PO DAILY [facility] Last Admin: 05/04/20 07:56 Dose: 100 mg Documented by: Enoxaparin Sodium (Lovenox) 40 mg SUBCUT Q24H [facility] Last Admin: 05/03/20 17:23 Dose: 40 mg Documented by: Fluticasone Propionate (Flonase) 0 gm NASBOTH DAILY [facility] Last Admin: 05/04/20 07:53 Dose: Not Given Documented by: Furosemide (Lasix) 80 mg PO QAM [facility] Last Admin: 05/04/20 07:55 Dose: 80 mg Documented by: Gabapentin (Neurontin) 300 mg PO BID [facility] Last Admin: 05/04/20 07:54 Dose: 300 mg Documented by: Sodium Chloride (Sodium Chloride 0.45%) 1,000 mls @ 100 mls/hr IV ASDIRECTED [facility] Last Admin: 05/04/20 04:51 Dose: 100 mls/hr Documented by: Vancomycin HCl 1.25 gm/ Sodium (Chloride) 250 mls @ 166.667 mls/hr IV Q18H [facility] Last Admin: 05/03/20 17:35 Dose: 166.667 mls/hr Documented by: Insulin Human Lispro (Humalog) 0 unit SUBCUT WITHMEALSANDBED [facility]; Protocol Last Admin: 05/04/20 07:57 Dose: 15 units Documented by: Lactulose (Cephulac) 20 gm PO TID PRN PRN Reason: Other Magnesium Oxide (Magnesium Oxide) 500 mg PO DAILY [facility] Last Admin: 05/04/20 07:53 Dose: 500 mg Documented by: Metoprolol Tartrate (Lopressor) 50 mg PO BID [facility] Last Admin: 05/04/20 07:56 Dose: 50 mg Documented by: Mometasone Furoate/Formoterol Fumar (Dulera 200-5 Mcg) 2 puff IH BID PRN PRN Reason: Shortness of Breath Oxycodone HCl (Oxycodone) 10 mg PO Q8H PRN PRN Reason: Pain Pantoprazole Sodium (Protonix Iv) 40 mg IVPUSH BID [facility] Last Admin: 05/04/20 07:53 Dose: 40 mg Documented by: Polyethylene Glycol (Miralax) 17 gm PO DAILY PRN PRN Reason: Constipation Potassium Chloride (Klor-Con 10) 20 meq PO BIDMEALS [facility] Last Admin: 05/04/20 07:55 Dose: 20 meq Documented by: Sertraline HCl (Zoloft) 50 mg PO DAILY [facility] Last Admin: 05/04/20 07:55 Dose: 50 mg Documented by: Simvastatin (Zocor) 20 mg PO DAILY [facility] Last Admin: 05/04/20 07:56 Dose: 20 mg Documented by: Sodium Chloride (Saline Flush) 10 ml FLUSH ASDIRECTED PRN PRN Reason: Keep Vein Open Spironolactone (Aldactone) 12.5 mg PO DAILY [facility] Last Admin: 05/04/20 07:57 Dose: 12.5 mg Documented by: Vancomycin HCl (Pharmacy To Dose - Vancomycin) 1 dose .XX ASDIRECTED [facility] Zolpidem Tartrate (Ambien) 10 mg PO BEDTIME PRN PRN Reason: Sleep Discontinued Medications Insulin Human Lispro (Humalog) 0 unit SUBCUT TID [facility] Last Admin: 05/03/20 19:54 Dose: 12 units Documented by: Insulin Human Lispro (Humalog) 6 unit SUBCUT ONETIME ONE Stop: 05/04/20 21:52 Insulin Human Lispro (Humalog) 6 unit SUBCUT ONETIME ONE Stop: 05/03/20 22:18 Last Admin: 05/03/20 22:20 Dose: 6 units Documented by: Insulin Human Lispro (Humalog) 14 unit SUBCUT ONETIME ONE Stop: 05/04/20 00:05 Last Admin: 05/04/20 00:29 Dose: 14 unit Documented by: Pantoprazole Sodium (Protonix Iv) 40 mg IVPUSH Q12H [facility] Last Admin: 05/03/20 17:16 Dose: 40 mg Documented by: - Exam General: Alert, Oriented, Cooperative, No Acute Distress Neck: Supple Lungs: Clear to Auscultation, Normal Respiratory Effort Cardiovascular: Regular Rate, Regular Rhythm GI/Abdominal Exam: Soft, Non-Tender Back Exam: Normal Inspection, Full Range of Motion Extremities: Normal Range of Motion, Normal Capillary Refill, Other (decreasing redness from themarked area on the right knee) Peripheral Pulses: 1+: Posterior Tibial (R), 2+: Radial (L), Radial (R) Skin: Warm, Dry Neurological: No New Focal Deficit Psy/Mental Status: Alert, Normal Affect, Normal Mood Sepsis Event Note - Evaluation Sepsis Screening Result: No Definite Risk - Focused Exam Vital Signs: Vital Signs Temp Pulse Pulse Resp BP BP Pulse Ox 05/04/20 08:00 37.1 C 87 16 149/75 H 98 05/04/20 07:56 87 149/75 H 05/04/20 07:54 149/75 H 05/04/20 00:00 37.1 C 97 16 127/67 96 Date Exam was Performed: 05/04/20 Time Exam was Performed: 09:42 - Problem List & Annotations (1) Cellulitis of right knee SNOMED Code(s): 37068876648745216 Code(s): L03.115 - CELLULITIS OF RIGHT LOWER LIMB Status: Acute Priority: High Current Visit: Yes (2) Leukocytosis, unspecified SNOMED Code(s): 645984553, 309735940 Code(s): D72.829 - ELEVATED WHITE BLOOD CELL COUNT, UNSPECIFIED Status: Acute Priority: High Current Visit: No Qualifiers: Leukocytosis type: unspecified Qualified Code(s): D72.829 - Elevated white blood cell count, unspecified (3) Diabetes mellitus SNOMED Code(s): 38156103 Code(s): E11.9 - TYPE 2 DIABETES MELLITUS WITHOUT COMPLICATIONS Status: Chronic Priority: High Current Visit: No Qualifiers: Diabetes mellitus type: type 2 Diabetes mellitus penitentiary insulin use: unspecified long term care phlebotomist insulin use status Diabetes mellitus complication status: with unspecified complications Annotation/Comment:: non-compliant, poorly controlled - Problem List Review Problem List Initiated/Reviewed/Updated: Yes - My Orders Last 24 Hours: My Active Orders 05/03/20 21:00 Insulin Lispro [HumaLOG] See Protocol SUBCUT WITHMEALSANDBED - Plan Plan:: his WBC and CRP is improving as well as the redness that was marked over the right knee. will continue current tx louise, the pts Blood sugars were >500 yesterday, adjustments to his regimen made and it is improving. will repeat labs in am, suspect the pt will be in the hospital for the next few days
[2020-05-04] MEDS: Enoxaparin 40 MG/0.4 ML Syringe SUBCUT SCH (17:53)
[2020-05-04] MEDS: cefTRIAXone 1 GM Vial IVPUSH SCH (17:54)
[2020-05-04] MEDS: oxyCODONE 5 MG Tab PO PRN (21:36)
[2020-05-04] MEDS: Acetaminophen 325 MG Tab PO PRN (21:39)
[2020-05-05] MEDS: Sodium Chloride 0.45% 1,000 ML IV SCH ×2 (04:03→15:57)
[2020-05-05 07:28] LABS: CHLORIDE,CL 100 mEq/L (98-106); SODIUM,NA 136 mEq/L (136-145)
[2020-05-05] MEDS: Pantoprazole 40 MG Vial IVPUSH SCH ×2 (07:44→20:20)
[2020-05-05] MEDS: Spironolactone 25 MG Tab PO SCH (07:45)
[2020-05-05] MEDS: amLODIPine 2.5 MG Tab PO SCH (07:46)
[2020-05-05] MEDS: Potassium Chloride 10 MEQ Tab.ER PO SCH ×2 (07:47→16:44)
[2020-05-05] MEDS: Aspirin 325 MG Tab PO SCH (07:47)
[2020-05-05] MEDS: Sertraline 25 MG Tab PO SCH (07:47)
[2020-05-05] MEDS: Furosemide 80 MG Tab PO SCH (07:48)
[2020-05-05] MEDS: Simvastatin 20 MG Tab PO SCH (07:48)
[2020-05-05] MEDS: Gabapentin 300 MG Cap PO SCH ×2 (07:49→20:27)
[2020-05-05] MEDS: Metoprolol Tartrate 50 MG Tab PO SCH ×2 (07:49→20:28)
[2020-05-05] MEDS: Fluticasone Propionate Nasal Spray 16 GM Bottle NASBOTH SCH (07:49)
[2020-05-05] MEDS: Insulin Lispro 100 Units/ML 3 ML Vial SUBCUT SCH ×4 (07:50→20:34)
[2020-05-05] MEDS: Acetaminophen 325 MG Tab PO PRN ×2 (07:56→20:35)
[2020-05-05] MEDS: oxyCODONE 5 MG Tab PO PRN ×2 (07:56→20:35)
--- NOTE | 2020-05-05 10:30 | PCM.PN ---
- General Info Date of Service: 05/05/20 Admission Dx/Problem (Free Text): cellulitis right knee,non-compliant DM Functional Status: Reports: Pain Controlled, Tolerating Diet - Review of Systems General: Reports: No Symptoms. Denies: Fever, Weakness HEENT: Reports: No Symptoms Pulmonary: Reports: No Symptoms. Denies: Shortness of Breath Cardiovascular: Reports: No Symptoms Gastrointestinal: Reports: No Symptoms. Denies: Abdominal Pain, Nausea, Vomiting Musculoskeletal: Reports: Joint Pain (still c/o mild pain to the right knee, the knee seems to be improving). Denies: Neck Pain, Shoulder Pain Skin: Reports: Other (redness is improving) Neurological: Reports: No Symptoms Psychiatric: Reports: No Symptoms - Patient Data Vitals - Most Recent: Last Vital Signs Temp 37.2 C 05/05/20 08:00 Pulse 93 05/05/20 08:00 Resp 16 05/05/20 08:00 BP 171/73 H 05/05/20 08:00 Pulse Ox 98 05/05/20 08:00 Weight - Most Recent: 89.675 kg I&O - Last 24 Hours: Intake & Output 05/04/20 05/05/20 05/05/20 22:59 06:59 14:59 Intake Total 1500 1000 Balance 1500 1000 Lab Results Last 24 Hours: Laboratory Results - last 24 hr 05/04/20 05/04/20 05/04/20 Range/Units 07:53 11:53 14:23 WBC (5.0-10.0) 10^3/uL RBC (4.50-6.00) 10^6/uL Hgb (14.0-18.0) g/dL Hct (40.0-54.0) % MCV (82.0-94.0) fL MCH (27.0-32.0) pg MCHC (33.0-38.0) g/dL RDW Coeff of Anne (11.0-15.0) % Plt Count (150-400) 10^3/uL Neut % (Auto) (35-85) % Lymph % (Auto) (10-55) % [place] % (Auto) (0-16) % Eos % (Auto) (0-5) % Baso % (Auto) (0-3) % Neut # (Auto) (1.80-7.00) 10^3/uL Lymph # (Auto) (1.00-4.80) 10^3/uL [place] # (Auto) (0.00-0.80) 10^3/uL Eos # (Auto) (0.00-0.45) 10^3/uL Baso # (Auto) 10^3/uL Sodium (136-145) mEq/L Potassium (3.5-5.0) mEq/L Chloride (98-106) mEq/L Carbon Dioxide (21-32) mmol/L BUN (7-18) mg/dL Creatinine (0.7-1.3) mg/dL Est Cr Clr Drug Dosing mL/min Estimated GFR (MDRD) (>=60) mL/min Glucose (75-99) mg/dL POC Glucose 392 H > 500 H* > 500 H* (75-105) mg/dl Calcium (8.4-10.1) mg/dL Total Bilirubin (0.0-1.0) mg/dL AST (15-37) U/L ALT (12-78) U/L Alkaline Phosphatase (46-116) U/L C-Reactive Protein (0.2-0.8) mg/dL Total Protein (6.4-8.2) g/dL Albumin (3.4-5.0) g/dL 05/04/20 05/04/20 05/05/20 Range/Units 17:31 21:31 06:50 WBC 17.7 H (5.0-10.0) 10^3/uL RBC 4.21 L (4.50-6.00) 10^6/uL Hgb 12.1 L (14.0-18.0) g/dL Hct 36.5 L (40.0-54.0) % MCV 86.7 (82.0-94.0) fL MCH 28.7 (27.0-32.0) pg MCHC 33.2 (33.0-38.0) g/dL RDW Coeff of Anne 13.3 (11.0-15.0) % Plt Count 405 H (150-400) 10^3/uL Neut % (Auto) 87.0 H (35-85) % Lymph % (Auto) 7.4 L (10-55) % [place] % (Auto) 4.8 (0-16) % Eos % (Auto) 0.6 (0-5) % Baso % (Auto) 0.2 (0-3) % Neut # (Auto) 15.42 H (1.80-7.00) 10^3/uL Lymph # (Auto) 1.32 (1.00-4.80) 10^3/uL [place] # (Auto) 0.85 H (0.00-0.80) 10^3/uL Eos # (Auto) 0.11 (0.00-0.45) 10^3/uL Baso # (Auto) 0.03 10^3/uL Sodium (136-145) mEq/L Potassium (3.5-5.0) mEq/L Chloride (98-106) mEq/L Carbon Dioxide (21-32) mmol/L BUN (7-18) mg/dL Creatinine (0.7-1.3) mg/dL Est Cr Clr Drug Dosing mL/min Estimated GFR (MDRD) (>=60) mL/min Glucose (75-99) mg/dL POC Glucose 439 H* 439 H* (75-105) mg/dl Calcium (8.4-10.1) mg/dL Total Bilirubin (0.0-1.0) mg/dL AST (15-37) U/L ALT (12-78) U/L Alkaline Phosphatase (46-116) U/L C-Reactive Protein (0.2-0.8) mg/dL Total Protein (6.4-8.2) g/dL Albumin (3.4-5.0) g/dL 05/05/20 Range/Units 06:50 WBC (5.0-10.0) 10^3/uL RBC (4.50-6.00) 10^6/uL Hgb (14.0-18.0) g/dL Hct (40.0-54.0) % MCV (82.0-94.0) fL MCH (27.0-32.0) pg MCHC (33.0-38.0) g/dL RDW Coeff of Anne (11.0-15.0) % Plt Count (150-400) 10^3/uL Neut % (Auto) (35-85) % Lymph % (Auto) (10-55) % [place] % (Auto) (0-16) % Eos % (Auto) (0-5) % Baso % (Auto) (0-3) % Neut # (Auto) (1.80-7.00) 10^3/uL Lymph # (Auto) (1.00-4.80) 10^3/uL [place] # (Auto) (0.00-0.80) 10^3/uL Eos # (Auto) (0.00-0.45) 10^3/uL Baso # (Auto) 10^3/uL Sodium 136 (136-145) mEq/L Potassium 4.6 (3.5-5.0) mEq/L Chloride 100 (98-106) mEq/L Carbon Dioxide 30 (21-32) mmol/L BUN 18 (7-18) mg/dL Creatinine 1.2 (0.7-1.3) mg/dL Est Cr Clr Drug Dosing 62.52 mL/min Estimated GFR (MDRD) > 60 (>=60) mL/min Glucose 271 H D (75-99) mg/dL POC Glucose (75-105) mg/dl Calcium 8.7 (8.4-10.1) mg/dL Total Bilirubin 0.4 (0.0-1.0) mg/dL AST 10 L (15-37) U/L ALT 16 (12-78) U/L Alkaline Phosphatase 109 (46-116) U/L C-Reactive Protein 17.7 H (0.2-0.8) mg/dL Total Protein 6.9 (6.4-8.2) g/dL Albumin 2.3 L (3.4-5.0) g/dL [place] Results Last 24 Hours: Microbiology 05/03/20 15:30 Gram Stain - Final Foot, Unspecified Wound Culture - Final Staphylococcus Aureus 05/03/20 15:47 Aerobic Blood Culture - Preliminary Blood NO GROWTH AFTER 1 DAY Anaerobic Blood Culture - Final 05/03/20 15:28 Aerobic Blood Culture - Preliminary Blood NO GROWTH AFTER 1 DAY Anaerobic Blood Culture - Preliminary NO GROWTH AFTER 1 DAY Med Orders - Current: Current Medications Acetaminophen (Tylenol) 650 mg PO Q4H PRN PRN Reason: Pain (Mild 1-3)/fever Last Admin: 05/05/20 07:56 Dose: 650 mg Documented by: Alprazolam (Alprazolam Odt) 1 mg PO TID PRN PRN Reason: Anxiety Amlodipine Besylate (Norvasc) 5 mg PO DAILY [facility] Last Admin: 05/05/20 07:46 Dose: 5 mg Documented by: Aspirin (Aspirin) 325 mg PO DAILY [facility] Last Admin: 05/05/20 07:47 Dose: 325 mg Documented by: Ceftriaxone Sodium (Rocephin) 1 gm IVPUSH Q24H [facility] Last Admin: 05/04/20 17:54 Dose: 1 gm Documented by: Cilostazol (Pletal) 100 mg PO DAILY [facility] Last Admin: 05/05/20 07:48 Dose: 100 mg Documented by: Enoxaparin Sodium (Lovenox) 40 mg SUBCUT Q24H [facility] Last Admin: 05/04/20 17:53 Dose: 40 mg Documented by: Fluticasone Propionate (Flonase) 0 gm NASBOTH DAILY [facility] Last Admin: 05/05/20 07:49 Dose: Not Given Documented by: Furosemide (Lasix) 80 mg PO QAM [facility] Last Admin: 05/05/20 07:48 Dose: 80 mg Documented by: Gabapentin (Neurontin) 300 mg PO BID [facility] Last Admin: 05/05/20 07:49 Dose: 300 mg Documented by: Sodium Chloride (Sodium Chloride 0.45%) 1,000 mls @ 100 mls/hr IV ASDIRECTED [facility] Last Admin: 05/05/20 04:03 Dose: 100 mls/hr Documented by: Vancomycin HCl 1.25 gm/ Sodium (Chloride) 250 mls @ 166.667 mls/hr IV Q18H [facility] Last Admin: 05/05/20 04:46 Dose: 166.667 mls/hr Documented by: Insulin Human Lispro (Humalog) 0 unit SUBCUT WITHMEALSANDBED [facility]; Protocol Last Admin: 05/05/20 07:50 Dose: 9 units Documented by: Lactulose (Cephulac) 20 gm PO TID PRN PRN Reason: Other Magnesium Oxide (Magnesium Oxide) 500 mg PO DAILY [facility] Last Admin: 05/05/20 07:48 Dose: 500 mg Documented by: Metoprolol Tartrate (Lopressor) 50 mg PO BID [facility] Last Admin: 05/05/20 07:49 Dose: 50 mg Documented by: Mometasone Furoate/Formoterol Fumar (Dulera 200-5 Mcg) 2 puff IH BID PRN PRN Reason: Shortness of Breath Oxycodone HCl (Oxycodone) 10 mg PO Q8H PRN PRN Reason: Pain Last Admin: 05/05/20 07:56 Dose: 10 mg Documented by: Pantoprazole Sodium (Protonix Iv) 40 mg IVPUSH BID [facility] Last Admin: 05/05/20 07:44 Dose: 40 mg Documented by: Polyethylene Glycol (Miralax) 17 gm PO DAILY PRN PRN Reason: Constipation Potassium Chloride (Klor-Con 10) 20 meq PO BIDMEALS [facility] Last Admin: 05/05/20 07:47 Dose: 20 meq Documented by: Sertraline HCl (Zoloft) 50 mg PO DAILY [facility] Last Admin: 05/05/20 07:47 Dose: 50 mg Documented by: Simvastatin (Zocor) 20 mg PO DAILY [facility] Last Admin: 05/05/20 07:48 Dose: 20 mg Documented by: Sodium Chloride (Saline Flush) 10 ml FLUSH ASDIRECTED PRN PRN Reason: Keep Vein Open Spironolactone (Aldactone) 12.5 mg PO DAILY [facility] Last Admin: 05/05/20 07:45 Dose: 12.5 mg Documented by: Vancomycin HCl (Pharmacy To Dose - Vancomycin) 1 dose .XX ASDIRECTED [facility] Zolpidem Tartrate (Ambien) 10 mg PO BEDTIME PRN PRN Reason: Sleep Discontinued Medications Insulin Human Lispro (Humalog) 0 unit SUBCUT TID [facility] Last Admin: 05/03/20 19:54 Dose: 12 units Documented by: Insulin Human Lispro (Humalog) 6 unit SUBCUT ONETIME ONE Stop: 05/04/20 21:52 Insulin Human Lispro (Humalog) 6 unit SUBCUT ONETIME ONE Stop: 05/03/20 22:18 Last Admin: 05/03/20 22:20 Dose: 6 units Documented by: Insulin Human Lispro (Humalog) 14 unit SUBCUT ONETIME ONE Stop: 05/04/20 00:05 Last Admin: 05/04/20 00:29 Dose: 14 unit Documented by: Pantoprazole Sodium (Protonix Iv) 40 mg IVPUSH Q12H [facility] Last Admin: 05/03/20 17:16 Dose: 40 mg Documented by: - Exam General: Alert, Oriented, Cooperative, No Acute Distress Neck: Supple Lungs: Clear to Auscultation, Normal Respiratory Effort Cardiovascular: Regular Rate, Regular Rhythm GI/Abdominal Exam: Normal Bowel Sounds, Soft, Non-Tender Back Exam: Normal Inspection, Full Range of Motion Extremities: Normal Range of Motion, Normal Capillary Refill. No: Normal Inspection (improving redness and swelling) Peripheral Pulses: 1+: Posterior Tibial (L), Posterior Tibial (R), 2+: Radial (L), Radial (R) Skin: Warm, Dry Wound/Incisions: Healing Well Neurological: No New Focal Deficit Psy/Mental Status: Alert, Normal Affect, Normal Mood Sepsis Event Note - Evaluation Sepsis Screening Result: Sepsis Risk - Focused Exam Vital Signs: Vital Signs Temp Pulse Pulse Resp BP BP Pulse Ox 05/05/20 08:00 37.2 C 93 16 171/73 H 98 05/05/20 07:49 93 171/73 H 05/05/20 07:46 171/73 H 05/05/20 04:04 167/86 H 05/05/20 04:00 36.6 C 81 16 96 05/05/20 00:00 36.8 C 73 16 146/68 H 97 Date Exam was Performed: 05/05/20 Time Exam was Performed: 10:24 - Problem List & Annotations (1) Cellulitis of right knee SNOMED Code(s): 17694208553159952 Code(s): L03.115 - CELLULITIS OF RIGHT LOWER LIMB Status: Acute Priority: High Current Visit: Yes (2) Leukocytosis, unspecified SNOMED Code(s): 122732094, 449410511 Code(s): D72.829 - ELEVATED WHITE BLOOD CELL COUNT, UNSPECIFIED Status: Acute Priority: High Current Visit: No Qualifiers: Leukocytosis type: unspecified Qualified Code(s): D72.829 - Elevated white blood cell count, unspecified (3) Diabetes mellitus SNOMED Code(s): 65304129 Code(s): E11.9 - TYPE 2 DIABETES MELLITUS WITHOUT COMPLICATIONS Status: Chronic Priority: High Current Visit: No Qualifiers: Diabetes mellitus type: type 2 Diabetes 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 will continue current tx louise, the pts Blood sugars were >500 yesterday, adjustments to his regimen made and it is improving. will repeat labs in am, suspect the pt will be in the hospital for the next few days 05/05/2020 1027: the wound cx has come back showing MRSA, the blood work is improving, there is decrease in redness, will continue current treatment plan, will continue to work on improving his BS, it was noted yesterday that dietary has not been following the ada diet, I advised the nurses to review his diet tray and remove the ice creams and other foods that are not appropriate. I also advised them to remind dietary. will reassess in am, consult case management for DC planning.
[2020-05-05] MEDS: Enoxaparin 40 MG/0.4 ML Syringe SUBCUT SCH (16:01)
[2020-05-05] MEDS: cefTRIAXone 1 GM Vial IVPUSH SCH (16:45)
[2020-05-06] MEDS: Sodium Chloride 0.45% 1,000 ML IV SCH ×3 (01:21→20:04)
[2020-05-06] MEDS: Potassium Chloride 10 MEQ Tab.ER PO SCH ×2 (08:25→17:36)
[2020-05-06] MEDS: Furosemide 80 MG Tab PO SCH (08:26)
[2020-05-06] MEDS: Sertraline 25 MG Tab PO SCH (08:26)
[2020-05-06] MEDS: Gabapentin 300 MG Cap PO SCH ×2 (08:27→19:45)
[2020-05-06] MEDS: Simvastatin 20 MG Tab PO SCH (08:30)
[2020-05-06] MEDS: amLODIPine 2.5 MG Tab PO SCH (08:30)
[2020-05-06] MEDS: Metoprolol Tartrate 50 MG Tab PO SCH ×2 (08:31→19:45)
[2020-05-06] MEDS: Aspirin 325 MG Tab PO SCH (08:32)
[2020-05-06] MEDS: Pantoprazole 40 MG Vial IVPUSH SCH ×2 (08:33→19:45)
[2020-05-06] MEDS: Insulin Lispro 100 Units/ML 3 ML Vial SUBCUT SCH ×4 (08:33→20:41)
[2020-05-06] MEDS: Spironolactone 25 MG Tab PO SCH (08:36)
[2020-05-06] MEDS: Fluticasone Propionate Nasal Spray 16 GM Bottle NASBOTH SCH (08:43)
--- NOTE | 2020-05-06 15:07 | PCM.PN ---
- General Info Date of Service: 05/06/20 Admission Dx/Problem (Free Text): cellulitis right knee,non-compliant DM Functional Status: Reports: Pain Controlled, Tolerating Diet, Ambulating - Review of Systems General: Reports: Fever, Weakness, Malaise. Denies: Fatigue HEENT: Reports: No Symptoms Pulmonary: Denies: Shortness of Breath, Cough Cardiovascular: Denies: Chest Pain, Edema, Lightheadedness Gastrointestinal: Denies: Abdominal Pain, Nausea, Vomiting Genitourinary: Reports: No Symptoms Musculoskeletal: Reports: Leg Pain Skin: Reports: Other (redness, swelling of right knee. Multiple abrasions to legs.) Neurological: Reports: Weakness - Patient Data Vitals - Most Recent: Last Vital Signs Temp 98.6 F 05/06/20 11:31 Pulse 82 05/06/20 11:31 Resp 16 05/06/20 11:31 BP 128/75 05/06/20 11:31 Pulse Ox 95 05/06/20 11:31 Weight - Most Recent: 197 lb 11.2 oz I&O - Last 24 Hours: Intake & Output 05/06/20 05/06/20 05/06/20 06:59 14:59 22:59 Intake Total 940 1000 Balance 940 1000 Lab Results Last 24 Hours: Laboratory Results - last 24 hr 05/05/20 05/05/20 05/05/20 Range/Units 11:31 17:23 20:24 WBC (5.0-10.0) 10^3/uL RBC (4.50-6.00) 10^6/uL Hgb (14.0-18.0) g/dL Hct (40.0-54.0) % MCV (82.0-94.0) fL MCH (27.0-32.0) pg MCHC (33.0-38.0) g/dL RDW Coeff of Anne (11.0-15.0) % Plt Count (150-400) 10^3/uL Neut % (Auto) (35-85) % Lymph % (Auto) (10-55) % [place] % (Auto) (0-16) % Eos % (Auto) (0-5) % Baso % (Auto) (0-3) % Neut # (Auto) (1.80-7.00) 10^3/uL Lymph # (Auto) (1.00-4.80) 10^3/uL [place] # (Auto) (0.00-0.80) 10^3/uL Eos # (Auto) (0.00-0.45) 10^3/uL Baso # (Auto) 10^3/uL POC Glucose 374 H 341 H 367 H (75-105) mg/dl C-Reactive Protein (0.2-0.8) mg/dL 05/06/20 05/06/20 05/06/20 Range/Units 07:00 07:00 08:23 WBC 14.0 H (5.0-10.0) 10^3/uL RBC 4.08 L (4.50-6.00) 10^6/uL Hgb 11.6 L (14.0-18.0) g/dL Hct 35.7 L (40.0-54.0) % MCV 87.5 (82.0-94.0) fL MCH 28.4 (27.0-32.0) pg MCHC 32.5 L (33.0-38.0) g/dL RDW Coeff of Anne 13.3 (11.0-15.0) % Plt Count 359 (150-400) 10^3/uL Neut % (Auto) 87.0 H (35-85) % Lymph % (Auto) 7.0 L (10-55) % [place] % (Auto) 5.4 (0-16) % Eos % (Auto) 0.4 (0-5) % Baso % (Auto) 0.2 (0-3) % Neut # (Auto) 12.14 H (1.80-7.00) 10^3/uL Lymph # (Auto) 0.97 L (1.00-4.80) 10^3/uL [place] # (Auto) 0.75 (0.00-0.80) 10^3/uL Eos # (Auto) 0.06 (0.00-0.45) 10^3/uL Baso # (Auto) 0.03 10^3/uL POC Glucose > 500 H* (75-105) mg/dl C-Reactive Protein 16.3 H (0.2-0.8) mg/dL 05/06/20 Range/Units 11:14 WBC (5.0-10.0) 10^3/uL RBC (4.50-6.00) 10^6/uL Hgb (14.0-18.0) g/dL Hct (40.0-54.0) % MCV (82.0-94.0) fL MCH (27.0-32.0) pg MCHC (33.0-38.0) g/dL RDW Coeff of Anne (11.0-15.0) % Plt Count (150-400) 10^3/uL Neut % (Auto) (35-85) % Lymph % (Auto) (10-55) % [place] % (Auto) (0-16) % Eos % (Auto) (0-5) % Baso % (Auto) (0-3) % Neut # (Auto) (1.80-7.00) 10^3/uL Lymph # (Auto) (1.00-4.80) 10^3/uL [place] # (Auto) (0.00-0.80) 10^3/uL Eos # (Auto) (0.00-0.45) 10^3/uL Baso # (Auto) 10^3/uL POC Glucose 497 H* (75-105) mg/dl C-Reactive Protein (0.2-0.8) mg/dL [place] Results Last 24 Hours: Microbiology 05/03/20 15:47 Aerobic Blood Culture - Preliminary Blood NO GROWTH AFTER 2 DAYS Anaerobic Blood Culture - Final 05/03/20 15:28 Aerobic Blood Culture - Preliminary Blood NO GROWTH AFTER 2 DAYS Anaerobic Blood Culture - Preliminary NO GROWTH AFTER 2 DAYS Med Orders - Current: Current Medications Acetaminophen (Tylenol) 650 mg PO Q4H PRN PRN Reason: Pain (Mild 1-3)/fever Last Admin: 05/05/20 20:35 Dose: 650 mg Documented by: Alprazolam (Alprazolam Odt) 1 mg PO TID PRN PRN Reason: Anxiety Amlodipine Besylate (Norvasc) 5 mg PO DAILY [facility] Last Admin: 05/06/20 08:30 Dose: 5 mg Documented by: Aspirin (Aspirin) 325 mg PO DAILY [facility] Last Admin: 05/06/20 08:32 Dose: 325 mg Documented by: Ceftriaxone Sodium (Rocephin) 1 gm IVPUSH Q24H [facility] Last Admin: 05/05/20 16:45 Dose: 1 gm Documented by: Cilostazol (Pletal) 100 mg PO DAILY [facility] Last Admin: 05/06/20 08:29 Dose: 100 mg Documented by: Enoxaparin Sodium (Lovenox) 40 mg SUBCUT Q24H [facility] Last Admin: 05/05/20 16:01 Dose: 40 mg Documented by: Fluticasone Propionate (Flonase) 0 gm NASBOTH DAILY [facility] Last Admin: 05/06/20 08:43 Dose: 1 spray Documented by: Furosemide (Lasix) 80 mg PO QAM [facility] Last Admin: 05/06/20 08:26 Dose: 80 mg Documented by: Gabapentin (Neurontin) 300 mg PO BID [facility] Last Admin: 05/06/20 08:27 Dose: 300 mg Documented by: Sodium Chloride (Sodium Chloride 0.45%) 1,000 mls @ 100 mls/hr IV ASDIRECTED [facility] Last Admin: 05/06/20 11:26 Dose: 100 mls/hr Documented by: Vancomycin HCl 1.25 gm/ Sodium (Chloride) 250 mls @ 166.667 mls/hr IV Q18H [facility] Last Admin: 05/05/20 23:43 Dose: 166.667 mls/hr Documented by: Insulin Glargine (Lantus Solostar) 45 units SUBCUT BEDTIME [facility] Insulin Human Lispro (Humalog) 0 unit SUBCUT WITHMEALSANDBED [facility]; Protocol Last Admin: 05/06/20 11:21 Dose: 15 units Documented by: Lactulose (Cephulac) 20 gm PO TID PRN PRN Reason: Other Magnesium Oxide (Magnesium Oxide) 500 mg PO DAILY [facility] Last Admin: 05/06/20 08:31 Dose: 500 mg Documented by: Metoprolol Tartrate (Lopressor) 50 mg PO BID [facility] Last Admin: 05/06/20 08:31 Dose: 50 mg Documented by: Mometasone Furoate/Formoterol Fumar (Dulera 200-5 Mcg) 2 puff IH BID PRN PRN Reason: Shortness of Breath Oxycodone HCl (Oxycodone) 10 mg PO Q8H PRN PRN Reason: Pain Last Admin: 05/05/20 20:35 Dose: 10 mg Documented by: Pantoprazole Sodium (Protonix Iv) 40 mg IVPUSH BID [facility] Last Admin: 05/06/20 08:33 Dose: 40 mg Documented by: Polyethylene Glycol (Miralax) 17 gm PO DAILY PRN PRN Reason: Constipation Potassium Chloride (Klor-Con 10) 20 meq PO BIDMEALS [facility] Last Admin: 05/06/20 08:25 Dose: 20 meq Documented by: Sertraline HCl (Zoloft) 50 mg PO DAILY [facility] Last Admin: 05/06/20 08:26 Dose: 50 mg Documented by: Simvastatin (Zocor) 20 mg PO DAILY [facility] Last Admin: 05/06/20 08:30 Dose: 20 mg Documented by: Sodium Chloride (Saline Flush) 10 ml FLUSH ASDIRECTED PRN PRN Reason: Keep Vein Open Spironolactone (Aldactone) 12.5 mg PO DAILY [facility] Last Admin: 05/06/20 08:36 Dose: 12.5 mg Documented by: Vancomycin HCl (Pharmacy To Dose - Vancomycin) 1 dose .XX ASDIRECTED [facility] Zolpidem Tartrate (Ambien) 10 mg PO BEDTIME PRN PRN Reason: Sleep Discontinued Medications Insulin Human Lispro (Humalog) 0 unit SUBCUT TID [facility] Last Admin: 05/03/20 19:54 Dose: 12 units Documented by: Insulin Human Lispro (Humalog) 6 unit SUBCUT ONETIME ONE Stop: 05/04/20 21:52 Insulin Human Lispro (Humalog) 6 unit SUBCUT ONETIME ONE Stop: 05/03/20 22:18 Last Admin: 05/03/20 22:20 Dose: 6 units Documented by: Insulin Human Lispro (Humalog) 14 unit SUBCUT ONETIME ONE Stop: 05/04/20 00:05 Last Admin: 05/04/20 00:29 Dose: 14 unit Documented by: Pantoprazole Sodium (Protonix Iv) 40 mg IVPUSH Q12H [facility] Last Admin: 05/03/20 17:16 Dose: 40 mg Documented by: - Exam General: Alert, Oriented HEENT: Mucous Membr. Moist/[place] Neck: Supple Lungs: Clear to Auscultation, Normal Respiratory Effort Cardiovascular: Regular Rate, Regular Rhythm GI/Abdominal Exam: Normal Bowel Sounds, Soft, Non-Tender Extremities: Joint Swelling, Increased Warmth, Redness (has notable redness to right knee, is improving from skin markings. Is warm yet to the touch. has a scabbed center to the knee, no drainage at this time. ) Skin: Warm, Dry Wound/Incisions: Erythema Improving Neurological: No New Focal Deficit Sepsis Event Note - Evaluation Sepsis Screening Result: No Definite Risk - Focused Exam Vital Signs: Vital Signs Temp Pulse Pulse Resp BP BP Pulse Ox 05/06/20 11:31 98.6 F 82 16 128/75 95 05/06/20 08:31 88 165/90 H 05/06/20 08:30 165/90 H 05/06/20 08:00 97.5 F 88 18 165/90 H 96 Date Exam was Performed: 05/06/20 Time Exam was Performed: 15:02 - Problem List & Annotations (1) Cellulitis of right knee SNOMED Code(s): 29302417624820008 Code(s): L03.115 - CELLULITIS OF RIGHT LOWER LIMB Status: Acute Priority: High Current Visit: Yes (2) Leukocytosis, unspecified SNOMED Code(s): 116937603, 207056372 Code(s): D72.829 - ELEVATED WHITE BLOOD CELL COUNT, UNSPECIFIED Status: Acute Priority: High Current Visit: Yes Qualifiers: Leukocytosis type: unspecified Qualified Code(s): D72.829 - Elevated white blood cell count, unspecified (3) Uncontrolled diabetes mellitus SNOMED Code(s): 02076685, 853837085 Code(s): E11.65 - TYPE 2 DIABETES MELLITUS WITH HYPERGLYCEMIA Status: Chronic Priority: High Current Visit: Yes Qualifiers: Diabetes mellitus type: type 2 Glycemic state: with hyperglycemia Qualified Code(s): E11.65 - Type 2 diabetes mellitus with hyperglycemia - Problem List Review Problem List Initiated/Reviewed/Updated: Yes - My Orders Last 24 Hours: My Active Orders 05/06/20 20:00 Insulin Glarg,Human.Rec.Analog [LantUS Solostar] 45 units SUBCUT BEDTIME - Assessment Assessment:: Cellulitis of right knee - Plan Plan:: his WBC and CRP is improving as well as the redness that was marked over the right knee. will continue current tx louise, the pts Blood sugars were >500 yesterd ay, adjustments to his regimen made and it is improving. will repeat labs in am, suspect the pt will be in the hospital for the next few days 05/05/2020 1027: the wound cx has come back showing MRSA, the blood work is improving, there is decrease in redness, will continue current treatment plan, will continue to work on improving his BS, it was noted yesterday that dietary has not been following the ada diet, I advised the nurses to review his diet tray and remove the ice creams and other foods that are not appropriate. I also advised them to remind dietary. will reassess in am, consult case management for DC planning. 05-06-2020 Patient is doing well this am. Low grade fevers. States knee is still "warm and tender". Skin markings do show improvement in regards to redness. Has large scab to center of knee over patella. WBC is still high at 14.0 but improving, was 20 on admit. CRP is down to 16.3. Blood pressure is stable. Blood sugars are still running high. Is currently on sliding scale. Will restart Lantus at 45 units at bedtime. Continue sliding scale. Continue Rocephin and vancomycin. Will repeat labs in am and consider swing bed for ongoing IV therapy.
[2020-05-06] MEDS: cefTRIAXone 1 GM Vial IVPUSH SCH (16:45)
[2020-05-06] MEDS: Enoxaparin 40 MG/0.4 ML Syringe SUBCUT SCH (17:35)
[2020-05-06] MEDS: oxyCODONE 5 MG Tab PO PRN (19:53)
[2020-05-06] MEDS ORDERED: Insulin Glargine,Human Rec. Analog 100 Units/ML 3 ML Pen SUBCUT SCH (20:00)
[2020-05-07] MEDS: Sodium Chloride 0.45% 1,000 ML IV SCH (05:24)
[2020-05-07 07:44] VITALS: BP 168/87; PULSE 81
[2020-05-07] MEDS: amLODIPine 2.5 MG Tab PO SCH (07:44)
[2020-05-07] MEDS: Potassium Chloride 10 MEQ Tab.ER PO SCH (07:45)
[2020-05-07] MEDS: Aspirin 325 MG Tab PO SCH (07:45)
[2020-05-07] MEDS: Pantoprazole 40 MG Vial IVPUSH SCH (07:45)
[2020-05-07] MEDS: Spironolactone 25 MG Tab PO SCH (07:45)
[2020-05-07] MEDS: Sertraline 25 MG Tab PO SCH (07:45)
[2020-05-07] MEDS: Gabapentin 300 MG Cap PO SCH (07:45)
[2020-05-07] MEDS: Metoprolol Tartrate 50 MG Tab PO SCH (07:45)
[2020-05-07] MEDS: Furosemide 80 MG Tab PO SCH (07:45)
[2020-05-07] MEDS: Simvastatin 20 MG Tab PO SCH (07:46)
[2020-05-07] MEDS: Insulin Lispro 100 Units/ML 3 ML Vial SUBCUT SCH (07:47)
[2020-05-07] MEDS: Fluticasone Propionate Nasal Spray 16 GM Bottle NASBOTH SCH (07:47)
[2020-05-07 08:10] LABS: CHLORIDE,CL 97 mEq/L (98-106); SODIUM,NA 133 mEq/L (136-145)
--- NOTE | 2020-05-07 08:22 | PCM.DCSUM1 ---
Discharge Summary - Hospital Course Free Text/Narrative:: John is a 65 year old who presented to clinic to see Noemi Lawrence due to increased lower leg swelling, redness to his right knee and fever. He has multiple open areas on his leg. Had fallen recently on his floor at home and scraped his right knee. Has 2 cm scabbed over area to knee. Redness, warmth and tenderness noted to knee. WBC high at 20. CRP 24.5. Sodium low at 128. Creatinine 1.7. Blood sugars running high. ADmitted for IV antibiotics, sta rted on Vancomycin and Rocephin. Diagnosis: Stroke: No Modified [place] Scale: No Symptoms at All Modified [place] Scale Score: 0 - Discharge Data Discharge Date: 05/07/20 Discharge Disposition: DC/Tfer W/I Hosp To [place] [id number] Condition: Fair - Referral to Home Health Primary Care Physician: Noemi Lawrence PA-C - Discharge Diagnosis/Problem(s) (1) Cellulitis of right knee SNOMED Code(s): 50952951897909277 ICD Code: L03.115 - CELLULITIS OF RIGHT LOWER LIMB Status: Acute Prio rity: High (2) Leukocytosis, unspecified SNOMED Code(s): 824042494, 693103969 ICD Code: D72.829 - ELEVATED WHITE BLOOD CELL COUNT, UNSPECIFIED Status: Acute Priority: High Qualifiers: Leukocytosis type: unspecified Qualified Code(s): D72.829 - Elevated white blood cell count, unspecified (3) Uncontrolled diabetes mellitus SNOMED Code(s): 44780977, 585353028 ICD Code: E11.65 - TYPE 2 DIABETES MELLITUS WITH HYPERGLYCEMIA Status: Chronic Priority: High Qualifiers: Diabetes mellitus type: type 2 Glycemic state: with hyperglycemia Qualified Code(s): E11.65 - Type 2 diabetes mellitus with hyperglycemia - Patient Summary/Data Complications: none Consults: Consultations 05/05/20 10:31 Consult to Case Management/Ammonia Worker [CONS] Routine Hospital Course: Patient is doing well, cellulitis is improving to right knee. Skin marking was placed on admit, much less redness and warmth noted in that area. Lower extremity redness and swelling has overall improved as well. Afebrile today. Is ambulating. Blood sugars were running quite high requiring higher doses of sliding scale than his norm. Lantus was restarted yesterday as do not carry Levemir. WBC is slowly improving, down to 14.7 today. Sodium is slightly low today at 133 but will stop IV fluids on admit to swing bed as patient is eating and drinking well. CRP has improved from 24.5 to 15.4 today. Creatinine stable at 1.2. Will transfer to swing bed for IV antibiotics to ensure this infection clears, blood sugars monitored to keep in control in the interim. - Patient Instructions Diet: Diabetic Diet Activity: As Tolerated - Discharge Plan *PRESCRIPTION DRUG MONITORING PROGRAM REVIEWED*: No *COPY OF PRESCRIPTION DRUG MONITORING REPORT IN PATIENT KAREN: No Home Medications: Home Meds ALPRAZolam [Alprazolam] 1 tab PO TID PRN 04/07/17 [History] Insulin Aspart [NovoLOG] 4 - 12 injection SUBCUT TID 04/07/17 [History] Metoprolol Tartrate 50 mg PO BID 04/07/17 [History] Omeprazole 20 mg PO DAILY 04/07/17 [History] Rosuvastatin [Crestor] 5 mg PO DAILY 04/07/17 [History] Sertraline [Zoloft] 50 mg PO DAILY 04/07/17 [History] Zolpidem [Ambien] 10 mg PO BEDTIME PRN 04/07/17 [History] amLODIPine [Norvasc] 5 mg PO DAILY 04/07/17 [History] oxyCODONE 10 mg PO Q8H PRN 04/07/17 [History] traMADol [Ultram] 50 mg PO Q12H PRN 04/07/17 [History] Aspirin/Calcium Carbonate/Mag [Aspirin Buffered 325 mg Tab] 325 mg PO DAILY 05/11/17 [History] Cholecalciferol (Vitamin D3) [D3-2000] 2,000 unit PO DAILY 05/11/17 [History] Furosemide [Lasix] 80 mg PO QAM 05/11/17 [History] Gabapentin [Neurontin] 300 mg PO BID 05/11/17 [History] Magnesium Oxide [Magnesium] 500 mg PO DAILY 05/11/17 [History] Multivitamin/Iron/Folic Acid [Centrum Adults Tablet] 1 each PO DAILY 05/11/17 [History] cilostazoL [Cilostazol] 100 mg PO DAILY 05/11/17 [History] Potassium Chloride [Klor-Con 10] 20 meq PO BIDMEALS #60 tab.er 05/12/17 [Rx] Spironolactone [Aldactone] 12.5 mg PO DAILY #30 tablet 05/12/17 [Rx] Budesonide/Formoterol [Symbicort 160-4.5 MCG] 2 puff INH BID PRN 02/13/20 [History] Cyanocobalamin (Vitamin B-12) [Cyanocobalamin Injection] 1,000 mcg IJ Q30D 02/13/20 [History] Nitroglycerin 0.4 mg SL ASDIRECTED PRN 02/13/20 [History] Nystatin [Nystatin Crm] 1 applic TOP BID 02/13/20 [History] polyethylene glycoL 3350 [MiraLAX] 17 gm PO DAILY PRN 02/13/20 [History] Fluticasone Propionate 1 spray NASBOTH DAILY 04/23/20 [History] Gentamicin Sulfate 1 applic TOP DAILY PRN 04/23/20 [History] Glucagon,Human Recombinant [Glucagon Emergency Kit] 1 mg IM ONETIME PRN 04/23/20 [History] Lactulose 30 ml PO TID PRN 04/23/20 [History] Polyvinyl Alcohol [LiquiTears 1.4% Ophth Soln] 1 drop EYEBOTH ASDIRECTED PRN 04/23/20 [History] Silver Sulfadiazine [Ssd] 1 applic TOP ASDIRECTED PRN 04/23/20 [History] Insulin Detemir [Levemir Flextouch] 30 - 60 units SQ QPM 05/03/20 [History] - Discharge Summary/Plan Comment DC Time >30 min.: Yes Discharge Summary/Plan Comment: Transfer to swing bed. Time with patient 20 minutes Time for orders 5 minutes Time for documentation 10 minutes - General Info Date of Service: 05/07/20 Admission Dx/Problem (Free Text: cellulitis right knee,non-compliant DM Functional Status: Reports: Pain Controlled, Tolerating Diet, Ambulating - Review of Systems General: Reports: Fatigue, Malaise. Denies: Fever, Weakness HEENT: Reports: No Symptoms Pulmonary: Denies: Shortness of Breath, Cough Cardiovascular: Denies: Chest Pain, Edema, Lightheadedness Gastrointestinal: Denies: Abdominal Pain, Nausea, Vomiting Genitourinary: Denies: No Symptoms Musculoskeletal: Reports: Leg Pain, Joint Pain Skin: Reports: Other (redness) Neurological: Reports: No Symptoms - Patient Data Vitals - Most Recent: Last Vital Signs Temp 96.2 F L 05/07/20 07:44 Pulse 81 05/07/20 07:45 Resp 16 05/07/20 07:44 BP 168/87 H 05/07/20 07:45 Pulse Ox 96 05/07/20 07:44 Weight - Most Recent: 197 lb 11.2 oz I&O - Last 24 hours: Intake & Output 05/06/20 05/07/20 05/07/20 22:59 06:59 14:59 Intake Total 863 933 Balance 863 933 Lab Results - Last 24 hrs: Laboratory Results - last 24 hr 05/06/20 05/06/20 05/06/20 Range/Units 08:23 11:14 16:30 WBC (5.0-10.0) 10^3/uL RBC (4.50-6.00) 10^6/uL Hgb (14.0-18.0) g/dL Hct (40.0-54.0) % MCV (82.0-94.0) fL MCH (27.0-32.0) pg MCHC (33.0-38.0) g/dL RDW Coeff of Anne (11.0-15.0) % Plt Count (150-400) 10^3/uL Neut % (Auto) (35-85) % Lymph % (Auto) (10-55) % [place] % (Auto) (0-16) % Eos % (Auto) (0-5) % Baso % (Auto) (0-3) % Neut # (Auto) (1.80-7.00) 10^3/uL Lymph # (Auto) (1.00-4.80) 10^3/uL [place] # (Auto) (0.00-0.80) 10^3/uL Eos # (Auto) (0.00-0.45) 10^3/uL Baso # (Auto) 10^3/uL POC Glucose > 500 H* 497 H* (75-105) mg/dl Vancomycin Trough 14.9 (10-20) ug/mL 05/06/20 05/06/20 05/07/20 Range/Units 17:38 19:56 07:30 WBC 14.7 H (5.0-10.0) 10^3/uL RBC 4.05 L (4.50-6.00) 10^6/uL Hgb 11.7 L (14.0-18.0) g/dL Hct 35.0 L (40.0-54.0) % MCV 86.4 (82.0-94.0) fL MCH 28.9 (27.0-32.0) pg MCHC 33.4 (33.0-38.0) g/dL RDW Coeff of Anne 13.1 (11.0-15.0) % Plt Count 376 (150-400) 10^3/uL Neut % (Auto) 85.3 H (35-85) % Lymph % (Auto) 7.7 L (10-55) % [place] % (Auto) 6.0 (0-16) % Eos % (Auto) 0.7 (0-5) % Baso % (Auto) 0.3 (0-3) % Neut # (Auto) 12.55 H (1.80-7.00) 10^3/uL Lymph # (Auto) 1.14 (1.00-4.80) 10^3/uL [place] # (Auto) 0.88 H (0.00-0.80) 10^3/uL Eos # (Auto) 0.10 (0.00-0.45) 10^3/uL Baso # (Auto) 0.04 10^3/uL POC Glucose 366 H 318 H (75-105) mg/dl Vancomycin Trough (10-20) ug/mL 05/07/20 Range/Units 07:34 WBC (5.0-10.0) 10^3/uL RBC (4.50-6.00) 10^6/uL Hgb (14.0-18.0) g/dL Hct (40.0-54.0) % MCV (82.0-94.0) fL MCH (27.0-32.0) pg MCHC (33.0-38.0) g/dL RDW Coeff of Anne (11.0-15.0) % Plt Count (150-400) 10^3/uL Neut % (Auto) (35-85) % Lymph % (Auto) (10-55) % [place] % (Auto) (0-16) % Eos % (Auto) (0-5) % Baso % (Auto) (0-3) % Neut # (Auto) (1.80-7.00) 10^3/uL Lymph # (Auto) (1.00-4.80) 10^3/uL [place] # (Auto) (0.00-0.80) 10^3/uL Eos # (Auto) (0.00-0.45) 10^3/uL Baso # (Auto) 10^3/uL POC Glucose 293 H (75-105) mg/dl Vancomycin Trough (10-20) ug/mL [place] Results - Last 24 hrs: Microbiology 05/03/20 15:47 Aerobic Blood Culture - Preliminary Blood NO GROWTH AFTER 3 DAYS Anaerobic Blood Culture - Final 05/03/20 15:28 Aerobic Blood Culture - Preliminary Blood NO GROWTH AFTER 3 DAYS Anaerobic Blood Culture - Preliminary NO GROWTH AFTER 3 DAYS Med Orders - Current: Current Medications Vancomycin HCl (Pharmacy To Dose - Vancomycin) 1 dose .XX ASDIRECTED [facility] Discontinued Medications Acetaminophen (Tylenol) 650 mg PO Q4H PRN PRN Reason: Pain (Mild 1-3)/fever Last Admin: 05/05/20 20:35 Dose: 650 mg Documented by: Alprazolam (Alprazolam Odt) 1 mg PO TID PRN PRN Reason: Anxiety Amlodipine Besylate (Norvasc) 5 mg PO DAILY [facility] Last Admin: 05/07/20 07:44 Dose: 5 mg Documented by: Aspirin (Aspirin) 325 mg PO DAILY [facility] Last Admin: 05/07/20 07:45 Dose: 325 mg Documented by: Ceftriaxone Sodium (Rocephin) 1 gm IVPUSH Q24H [facility] Last Admin: 05/06/20 16:45 Dose: 1 gm Documented by: Cilostazol (Pletal) 100 mg PO DAILY [facility] Last Admin: 05/07/20 07:45 Dose: 100 mg Documented by: Enoxaparin Sodium (Lovenox) 40 mg SUBCUT Q24H [facility] Last Admin: 05/06/20 17:35 Dose: 40 mg Documented by: Fluticasone Propionate (Flonase) 0 gm NASBOTH DAILY [facility] Last Admin: 05/07/20 07:47 Dose: 1 spray Documented by: Furosemide (Lasix) 80 mg PO QAM [facility] Last Admin: 05/07/20 07:45 Dose: 80 mg Documented by: Gabapentin (Neurontin) 300 mg PO BID [facility] Last Admin: 05/07/20 07:45 Dose: 300 mg Documented by: Sodium Chloride (Sodium Chloride 0.45%) 1,000 mls @ 100 mls/hr IV ASDIRECTED [facility] Last Admin: 05/07/20 05:24 Dose: 100 mls/hr Documented by: Vancomycin HCl 1.25 gm/ Sodium (Chloride) 250 mls @ 166.667 mls/hr IV Q18H [facility] Last Admin: 05/06/20 17:36 Dose: 166.667 mls/hr Documented by: Insulin Glargine (Lantus Solostar) 45 units SUBCUT BEDTIME [facility] Last Admin: 05/06/20 20:00 Dose: 45 units Documented by: Insulin Human Lispro (Humalog) 0 unit SUBCUT TID [facility] Last Admin: 05/03/20 19:54 Dose: 12 units Documented by: Insulin Human Lispro (Humalog) 0 unit SUBCUT WITHMEALSANDBED [facility]; Protocol Last Admin: 05/07/20 07:47 Dose: 9 units Documented by: Insulin Human Lispro (Humalog) 6 unit SUBCUT ONETIME ONE Stop: 05/04/20 21:52 Insulin Human Lispro (Humalog) 6 unit SUBCUT ONETIME ONE Stop: 05/03/20 22:18 Last Admin: 05/03/20 22:20 Dose: 6 units Documented by: Insulin Human Lispro (Humalog) 14 unit SUBCUT ONETIME ONE Stop: 05/04/20 00:05 Last Admin: 05/04/20 00:29 Dose: 14 unit Documented by: Lactulose (Cephulac) 20 gm PO TID PRN PRN Reason: Other Magnesium Oxide (Magnesium Oxide) 500 mg PO DAILY [facility] Last Admin: 05/07/20 07:45 Dose: 500 mg Documented by: Metoprolol Tartrate (Lopressor) 50 mg PO BID [facility] Last Admin: 05/07/20 07:45 Dose: 50 mg Documented by: Mometasone Furoate/Formoterol Fumar (Dulera 200-5 Mcg) 2 puff IH BID PRN PRN Reason: Shortness of Breath Oxycodone HCl (Oxycodone) 10 mg PO Q8H PRN PRN Reason: Pain Last Admin: 05/06/20 19:53 Dose: 10 mg Documented by: Pantoprazole Sodium (Protonix Iv) 40 mg IVPUSH Q12H [facility] Last Admin: 05/03/20 17:16 Dose: 40 mg Documented by: Pantoprazole Sodium (Protonix Iv) 40 mg IVPUSH BID [facility] Last Admin: 05/07/20 07:45 Dose: 40 mg Documented by: Polyethylene Glycol (Miralax) 17 gm PO DAILY PRN PRN Reason: Constipation Potassium Chloride (Klor-Con 10) 20 meq PO BIDMEALS [facility] Last Admin: 05/07/20 07:45 Dose: 20 meq Documented by: Sertraline HCl (Zoloft) 50 mg PO DAILY [facility] Last Admin: 05/07/20 07:45 Dose: 50 mg Documented by: Simvastatin (Zocor) 20 mg PO DAILY [facility] Last Admin: 05/07/20 07:46 Dose: 20 mg Documented by: Sodium Chloride (Saline Flush) 10 ml FLUSH ASDIRECTED PRN PRN Reason: Keep Vein Open Spironolactone (Aldactone) 12.5 mg PO DAILY [facility] Last Admin: 05/07/20 07:45 Dose: 12.5 mg Documented by: Zolpidem Tartrate (Ambien) 10 mg PO BEDTIME PRN PRN Reason: Sleep - Exam General: Reports: Alert, Oriented HEENT: Reports: Mucous Membr. Moist/[place] Neck: Reports: Supple Lungs: Reports: Clear to Auscultation, Normal Respiratory Effort Cardiovascular: Reports: Regular Rate, Regular Rhythm GI/Abdominal Exam: Normal Bowel Sounds, Soft, Non-Tender Extremities: Increased Warmth, Redness Skin: Reports: Warm, Dry Wound/Incisions: Reports: Erythema Improving
== END 2020-05-07 07:55 | disposition swing bed (61) | DRG 638 ==
LOC: CC.MS 15:24 → UNDOADMIN 15:24 → CC.MS 16:27
PROVIDERS: ADMIT Physician Assistant Medical; ATTEND Family Medicine
DX: E11.628 Type 2 diabetes mellitus with other skin complications (principal); L03.115 Cellulitis of right lower limb; E11.65 Type 2 diabetes mellitus with hyperglycemia; Z91.19 Patient's noncompliance with other medical treatment and regimen; I25.10 Atherosclerotic heart disease of native coronary artery without angina pectoris; I10 Essential (primary) hypertension; Z95.1 Presence of aortocoronary bypass graft; Z98.890 Other specified postprocedural states; Z79.4 Long term (current) use of insulin; Z79.899 Other long term (current) drug therapy; Z79.82 Long term (current) use of aspirin
CPT/HCPCS: 36415; 80048; 80053; 80202; 82947; 82962; 83605; 85025; 86140; 87040; 87070; 87077; 87186; 87205; A9270-GY; C9113; J0696; J1650; J1815-GY; J3370; J7030; J7050

== ENCOUNTER 2020-05-07 07:48 | Inpatient (IN) | payer MEDICARE, MEDICAID ==
[2020-05-07] MEDS ORDERED: Lactulose Soln 10 GM/15 ML 30 ML UD Cup PO PRN (08:07)
[2020-05-07] MEDS ORDERED: Sodium Chloride 0.9% 10 ML Syringe FLUSH PRN ×2 (08:07)
[2020-05-07] MEDS ORDERED: Polyethylene Glycol 3350 Powder 17 GM Packet PO PRN (08:07)
[2020-05-07] MEDS ORDERED: Formoterol/Mometasone 200-5 MCG 8.8 GM Inhaler IH PRN (08:07)
[2020-05-07] MEDS ORDERED: ALPRAZolam 0.25 MG Tab PO PRN (10:43)
[2020-05-07] MEDS: oxyCODONE 5 MG Tab PO PRN ×2 (11:42→23:58)
[2020-05-07] MEDS: Acetaminophen 325 MG Tab PO PRN ×2 (11:42→23:57)
[2020-05-07] MEDS: Insulin Lispro 100 Units/ML 3 ML Vial SUBCUT SCH ×3 (11:55→20:45)
[2020-05-07] MEDS: Enoxaparin 40 MG/0.4 ML Syringe SUBCUT SCH (17:06)
[2020-05-07] MEDS: cefTRIAXone 1 GM Vial IVPUSH SCH (17:06)
[2020-05-07] MEDS: Potassium Chloride 10 MEQ Tab.ER PO SCH (17:52)
[2020-05-07] MEDS: Insulin Glargine,Human Rec. Analog 100 Units/ML 3 ML Pen SUBCUT SCH (19:46)
[2020-05-07] MEDS: Pantoprazole 40 MG Vial IVPUSH SCH (19:47)
[2020-05-07] MEDS: Gabapentin 300 MG Cap PO SCH (19:47)
[2020-05-07] MEDS: Metoprolol Tartrate 50 MG Tab PO SCH (19:47)
[2020-05-07] MEDS ORDERED: Zolpidem 5 MG Tab PO PRN (20:00)
[2020-05-08] MEDS: Pantoprazole 40 MG Vial IVPUSH SCH ×2 (08:06→19:57)
[2020-05-08] MEDS: Potassium Chloride 10 MEQ Tab.ER PO SCH ×2 (08:07→17:00)
[2020-05-08] MEDS: Sertraline 25 MG Tab PO SCH (08:07)
[2020-05-08] MEDS: amLODIPine 10 MG Tab PO SCH (08:07)
[2020-05-08] MEDS: Metoprolol Tartrate 50 MG Tab PO SCH ×2 (08:08→19:58)
[2020-05-08] MEDS: Gabapentin 300 MG Cap PO SCH ×2 (08:09→19:58)
[2020-05-08] MEDS: Spironolactone 25 MG Tab PO SCH (08:09)
[2020-05-08] MEDS: Aspirin 325 MG Tab PO SCH (08:09)
[2020-05-08] MEDS: Furosemide 80 MG Tab PO SCH (08:10)
[2020-05-08] MEDS: Insulin Lispro 100 Units/ML 3 ML Vial SUBCUT SCH ×4 (08:15→20:05)
[2020-05-08] MEDS: Fluticasone Propionate Nasal Spray 16 GM Bottle NASBOTH SCH (08:17)
[2020-05-08] MEDS: Acetaminophen 325 MG Tab PO PRN (15:24)
[2020-05-08] MEDS: oxyCODONE 5 MG Tab PO PRN (15:24)
[2020-05-08] MEDS: Enoxaparin 40 MG/0.4 ML Syringe SUBCUT SCH (15:30)
[2020-05-08] MEDS: cefTRIAXone 1 GM Vial IVPUSH SCH (15:58)
[2020-05-08] MEDS: Insulin Glargine,Human Rec. Analog 100 Units/ML 3 ML Pen SUBCUT SCH (19:57)
[2020-05-08] MEDS: Simvastatin 20 MG Tab PO SCH (19:58)
[2020-05-09] MEDS: oxyCODONE 5 MG Tab PO PRN ×2 (04:05→17:07)
[2020-05-09] MEDS: Acetaminophen 325 MG Tab PO PRN ×2 (04:05→17:07)
[2020-05-09] MEDS: Furosemide 80 MG Tab PO SCH (07:45)
[2020-05-09] MEDS: Aspirin 325 MG Tab PO SCH (07:45)
[2020-05-09] MEDS: Pantoprazole 40 MG Vial IVPUSH SCH ×2 (07:46→19:32)
[2020-05-09] MEDS: Spironolactone 25 MG Tab PO SCH (07:48)
[2020-05-09] MEDS: amLODIPine 10 MG Tab PO SCH (07:49)
[2020-05-09] MEDS: Potassium Chloride 10 MEQ Tab.ER PO SCH ×2 (07:49→17:00)
[2020-05-09] MEDS: Sertraline 25 MG Tab PO SCH (07:49)
[2020-05-09] MEDS: Gabapentin 300 MG Cap PO SCH ×2 (07:49→19:32)
[2020-05-09] MEDS: Metoprolol Tartrate 50 MG Tab PO SCH ×2 (07:50→19:31)
[2020-05-09] MEDS: Fluticasone Propionate Nasal Spray 16 GM Bottle NASBOTH SCH (07:53)
[2020-05-09] MEDS: Insulin Lispro 100 Units/ML 3 ML Vial SUBCUT SCH ×4 (07:54→20:34)
[2020-05-09] MEDS: Enoxaparin 40 MG/0.4 ML Syringe SUBCUT SCH (16:59)
[2020-05-09] MEDS: cefTRIAXone 1 GM Vial IVPUSH SCH (17:00)
[2020-05-09] MEDS: Simvastatin 20 MG Tab PO SCH (19:32)
[2020-05-09] MEDS: Insulin Glargine,Human Rec. Analog 100 Units/ML 3 ML Pen SUBCUT SCH (19:39)
[2020-05-10] MEDS: Pantoprazole 40 MG Vial IVPUSH SCH (07:26)
[2020-05-10] MEDS: Spironolactone 25 MG Tab PO SCH (07:29)
[2020-05-10] MEDS: Aspirin 325 MG Tab PO SCH (07:30)
[2020-05-10] MEDS: Fluticasone Propionate Nasal Spray 16 GM Bottle NASBOTH SCH (07:30)
[2020-05-10] MEDS: Potassium Chloride 10 MEQ Tab.ER PO SCH (07:31)
[2020-05-10] MEDS: Furosemide 80 MG Tab PO SCH (07:31)
[2020-05-10] MEDS: Metoprolol Tartrate 50 MG Tab PO SCH (07:32)
[2020-05-10] MEDS: Gabapentin 300 MG Cap PO SCH (07:32)
[2020-05-10] MEDS: Sertraline 25 MG Tab PO SCH (07:33)
[2020-05-10] MEDS: amLODIPine 10 MG Tab PO SCH (07:33)
[2020-05-10] MEDS: oxyCODONE 5 MG Tab PO PRN ×2 (07:37→15:36)
[2020-05-10] MEDS: Insulin Lispro 100 Units/ML 3 ML Vial SUBCUT SCH ×2 (07:40→12:10)
[2020-05-10] MEDS: Acetaminophen 325 MG Tab PO PRN (12:58)
[2020-05-10] MEDS: Enoxaparin 40 MG/0.4 ML Syringe SUBCUT SCH (16:29)
[2020-05-10] MEDS: cefTRIAXone 1 GM Vial IVPUSH SCH (16:35)
[2020-05-10 16:57] VITALS: BP 181/83; PULSE 88
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
== END 2020-05-10 17:30 | DRG 603 ==
LOC: CC.MS 07:48 → UNDOADMIN 07:55 → CC.MS 07:55
PROVIDERS: ADMIT Family Medicine; ATTEND Family Medicine
DX: L03.115 Cellulitis of right lower limb (principal); M86.9 Osteomyelitis, unspecified; E11.65 Type 2 diabetes mellitus with hyperglycemia; L02.415 Cutaneous abscess of right lower limb; Z79.4 Long term (current) use of insulin; Z79.899 Other long term (current) drug therapy
CPT/HCPCS: 36415; 73723-RT; 80202; 82962; 85025; 86140; 97110-GP; 97161-GP; 97597-GP; A9270-GY; A9579; C9113; J0696; J1650; J1815-GY; J3370; J7050

== ENCOUNTER 2020-05-16 11:23 | Inpatient (IN) | payer MEDICARE, MEDICAID ==
[2020-05-16] MEDS ORDERED: Polyvinyl Alcohol 1.4% Ophth Soln 15 ML Bottle EYEBOTH PRN (16:38)
[2020-05-16] MEDS ORDERED: Lactulose Soln 10 GM/15 ML 30 ML UD Cup PO PRN (16:38)
[2020-05-16] MEDS ORDERED: Formoterol/Mometasone 200-5 MCG 8.8 GM Inhaler IH PRN (16:38)
--- NOTE | 2020-05-16 17:26 | PCM.HP.2 ---
H&P History of Present Illness - General Date of Service: 05/16/20 Admit Problem/Dx: Admission Diagnosis/Problem Admission Diagnosis/Problem Osteomyelitis of lower leg transferred from [place] [facility] bed for 40 days of IV antibiotics due to the osteomyelitis of the right knee. Source of Information: Patient, Other (notes from [place]) History Limitations: Reports: No Limitations - History of Present Illness Initial Comments - Free Text/Narative: States that he still has pain but not as bad. He relates that he has less drainage from the knee after surgery. Location: Reports: Lower Extremity, Left Associated Symptoms: Reports: No Other Symptoms Right Knee Pain Score (Numeric/FACES): 4 - Related Data Allergies/Adverse Reactions: Allergies Allergy/AdvReac Type Severity Reaction Status Date / Time adhesive tape Allergy Rash Verified 05/03/20 15:25 Home Medications: Home Meds Insulin Aspart [NovoLOG] 4 - 12 injection SUBCUT TID 04/07/17 [History] Metoprolol Tartrate 50 mg PO BID 04/07/17 [History] Omeprazole 20 mg PO DAILY 04/07/17 [History] Rosuvastatin [Crestor] 5 mg PO DAILY 04/07/17 [History] Sertraline [Zoloft] 50 mg PO DAILY 04/07/17 [History] amLODIPine [Norvasc] 10 mg PO DAILY 04/07/17 [History] oxyCODONE 10 mg PO Q8H PRN 04/07/17 [History] Cholecalciferol (Vitamin D3) [D3-2000] 2,000 unit PO DAILY 05/11/17 [History] Furosemide [Lasix] 40 mg PO QAM 05/11/17 [History] Gabapentin [Neurontin] 300 mg PO BID 05/11/17 [History] Magnesium Oxide [Magnesium] 500 mg PO DAILY 05/11/17 [History] Multivitamin/Iron/Folic Acid [Centrum Adults Tablet] 1 each PO DAILY 05/11/17 [History] cilostazoL [Cilostazol] 100 mg PO DAILY 05/11/17 [History] Potassium Chloride [Klor-Con 10] 20 meq PO BIDMEALS #60 tab.er 05/12/17 [Rx] Spironolactone [Aldactone] 12.5 mg PO DAILY #30 tablet 05/12/17 [Rx] Budesonide/Formoterol [Symbicort 160-4.5 MCG] 2 puff INH BID PRN 02/13/20 [History] Cyanocobalamin (Vitamin B-12) [Cyanocobalamin Injection] 1,000 mcg IJ Q30D 02/13/20 [History] polyethylene glycoL 3350 [MiraLAX] 17 gm PO DAILY 02/13/20 [History] Fluticasone Propionate 1 spray NASBOTH DAILY 04/23/20 [History] Glucagon,Human Recombinant [Glucagon Emergency Kit] 1 mg IM ONETIME PRN 04/23/20 [History] Lactulose 30 ml PO TID PRN 04/23/20 [History] Polyvinyl Alcohol [LiquiTears 1.4% Ophth Soln] 1 drop EYEBOTH ASDIRECTED PRN 04/23/20 [History] Silver Sulfadiazine [Ssd] 1 applic TOP DAILY 04/23/20 [History] Insulin Detemir [Levemir Flextouch] 20 units SQ QPM 05/03/20 [History] ALPRAZolam [Alprazolam] 1 mg PO TID 05/16/20 [History] Acetaminophen [Tylenol] 650 mg PO Q4H PRN 05/16/20 [History] Aspirin [Aspirin EC] 325 mg PO DAILY 05/16/20 [History] Past Medical History HEENT History: Reports: Allergic Rhinitis Cardiovascular History: Reports: CAD, Heart Failure, Hypertension, PVD, Stents Gastrointestinal History: Reports: GERD Genitourinary History: Reports: BPH Musculoskeletal History: Reports: Arthritis Neurological History: Reports: Neuropathy, Diabetic Psychiatric History: Reports: Depression Endocrine/Metabolic History: Reports: Diabetes, Type I Dermatologic History: Reports: Other (See Below) Other Dermatologic History: HX OF DIABETIC FOOT ULCER - Past Surgical History Cardiovascular Surgical History: Reports: Coronary Artery Bypass Social & Family History - Family History Family Medical History: Noncontributory - Tobacco Use Smoking Status *Q: Never Smoker - Caffeine Use Caffeine Use: Reports: None - Recreational Drug Use Recreational Drug Use: No H&P Review of Systems - Review of Systems: Review Of Systems: See Below General: Reports: Weakness. Denies: Fever, Chills HEENT: Reports: No Symptoms Pulmonary: Reports: No Symptoms Cardiovascular: Reports: No Symptoms Gastrointestinal: Reports: No Symptoms Genitourinary: Reports: No Symptoms Skin: Reports: Wound (right knee) Exam - Exam Exam: See Below - Vital Signs Vital Signs: Last Vital Signs Temp 97.1 F 05/16/20 16:17 Pulse 67 05/16/20 16:17 Resp 18 05/16/20 16:17 BP 131/59 L 05/16/20 16:17 Pulse Ox 98 05/16/20 16:17 Weight: 206 lb 11.2 oz - Exam General: Alert, Oriented Lungs: Clear to Auscultation, Normal Respiratory Effort Cardiovascular: Regular Rate, Regular Rhythm GI/Abdominal Exam: Normal Bowel Sounds, Soft, Non-Tender Extremities: Normal Range of Motion, Other (tender to palpation to the right knee. currently no drainage on the dressing.). No: Increased Warmth Sepsis Event Note - Evaluation Sepsis Screening Result: No Definite Risk - Focused Exam Vital Signs: Vital Signs Temp Pulse Resp BP Pulse Ox 05/16/20 16:17 97.1 F 67 18 131/59 L 98 Date Exam was Performed: 05/16/20 Time Exam was Performed: 17:21 - Problem List (1) Osteomyelitis SNOMED Code(s): 77938320 ICD Code: M86.9 - OSTEOMYELITIS, UNSPECIFIED Status: Acute Priority: High Current Visit: Yes (2) Uncontrolled diabetes mellitus SNOMED Code(s): 06843687, 002405475 ICD Code: E11.65 - TYPE 2 DIABETES MELLITUS WITH HYPERGLYCEMIA Status: Chronic Priority: High Current Visit: No Qualifiers: Diabetes mellitus type: type 2 Glycemic state: with hyperglycemia Qualified Code(s): E11.65 - Type 2 diabetes mellitus with hyperglycemia Problem List Initiated/Reviewed/Updated: Yes Orders Last 24hrs: Active Orders 24 hr Category Date Time Status Patient Status [ADT] Routine ADT 05/16/20 16:17 Active Blood Glucose Check, Bedside [RC] 0730,1130,1700,2100 Care 05/16/20 16:17 Act lu Communication Order [RC] DAILY Care 05/17/20 08:00 Active Dressing Change [Wound Care] [RC] DAILY Care 05/16/20 16:34 Active May Shower [RC] .PRN Care 05/16/20 16:17 Active Oxygen Therapy [RC] .PRN Care 05/16/20 16:17 Active Up With Assistance [RC] .PRN Care 05/16/20 16:17 Active Vital Signs [RC] 0800,2000 Care 05/16/20 16:17 Active PT Evaluation and Treatment [CONS] Routine Cons 05/16/20 16:17 Active Consistent Carbohydrate Diet [DIET] Diet 05/16/20 Dinner Active ALPRAZolam [Xanax] Med 05/16/20 20:00 Active 1 mg PO TID Acetaminophen [Tylenol] Med 05/16/20 16:38 Active 650 mg PO Q4H PRN Aspirin [Ecotrin] Med 05/17/20 08:00 Active 325 mg PO DAILY Budesonide/Formoterol Med 05/16/20 16:38 Ordered 2 puff INH BID PRN Cholecalciferol (Vitamin D3) [Vitamin D3] Med 05/17/20 08:00 Active 50 mcg PO DAILY Cyanocobalamin (Vitamin B12) [Vitamin B12] Med 05/16/20 16:45 Ordered 1,000 mcg IM Q30D Enoxaparin [Lovenox] Med 05/16/20 20:00 Active 40 mg SUBCUT Q24H Fluticasone Propionate [Flonase] Med 05/17/20 08:00 Active 0 gm NASBOTH DAILY Furosemide [Lasix] Med 05/17/20 08:00 Active 40 mg PO QAM Gabapentin [Neurontin] Med 05/16/20 20:00 Active 300 mg PO BID Heparin Sodium [Heparin Lock Flush 100 Units/ML] Med 05/16/20 17:15 Ordered 300 units FLUSH Q8H Insulin Glarg,Human.Rec.Analog [LantUS Solostar] Med 05/16/20 20:00 Active 20 units SUBCUT BEDTIME Insulin Lispro [HumaLOG] Med 05/16/20 17:30 Ordered See Protocol SUBCUT TIDMEALS Lactulose [Lactulose] Med 05/16/20 16:38 Ordered 30 ml PO TID PRN Magnesium Oxide Med 05/17/20 08:00 Active 500 mg PO DAILY Metoprolol Tartrate [Lopressor] Med 05/16/20 20:00 Active 50 mg PO BID Multivitamin/Iron/Folic Acid [Centrum Adults Tablet] Med 05/17/20 08:00 Ordered 1 each PO DAILY Pantoprazole [ProTONIX] Med 05/17/20 07:00 Active 40 mg PO ACBREAKFAST Polyvinyl Alcohol [LiquiTears 1.4% Ophth Soln] Med 05/16/20 16:38 Active 0 ml EYEBOTH ASDIRECTED PRN Potassium Chloride [Klor-Con 10] Med 05/16/20 17:30 Active 20 meq PO BIDMEALS Rosuvastatin [Crestor] Med 05/17/20 08:00 Ordered 5 mg PO DAILY Sertraline [Zoloft] Med 05/17/20 08:00 Active 50 mg PO DAILY Spironolactone [Aldactone] Med 05/17/20 08:00 Active 12.5 mg PO DAILY amLODIPine [Norvasc] Med 05/17/20 08:00 Active 10 mg PO DAILY ceFAZolin [Ancef] Med 05/16/20 16:30 Ordered 2 gm IVPUSH Q8H cilostazoL [Pletal] Med 05/17/20 08:00 Active 100 mg PO DAILY oxyCODONE Med 05/16/20 16:38 Active 10 mg PO Q8H PRN polyethylene glycoL 3350 [MiraLAX] Med 05/17/20 08:00 Active 17 gm PO DAILY Resuscitation Status Routine Resus Stat 05/16/20 16:17 Ordered Medication Orders Acetaminophen (Tylenol) 650 mg PO Q4H PRN PRN Reason: Pain/Fever Alprazolam (Xanax) 1 mg PO TID MARIE Amlodipine Besylate (Norvasc) 10 mg PO DAILY [facility] Artificial Tears (Liquitears 1.4% Oph Soln) 0 ml EYEBOTH ASDIRECTED PRN PRN Reason: Other Aspirin (Ecotrin) 325 mg PO DAILY MARIE Cefazolin Sodium (Ancef) 2 gm IVPUSH Q8H MARIE Stop: 06/25/20 16:30 Cholecalciferol (Vitamin D3) 50 mcg PO DAILY [facility] Cilostazol (Pletal) 100 mg PO DAILY [facility] Cyanocobalamin (Vitamin B12) 1,000 mcg IM Q30D [facility] Enoxaparin Sodium (Lovenox) 40 mg SUBCUT Q24H MARIE Fluticasone Propionate (Flonase) 0 gm NASBOTH DAILY [facility] Furosemide (Lasix) 40 mg PO QAM [facility] Gabapentin (Neurontin) 300 mg PO BID [facility] Heparin Sodium (Porcine) (Heparin Lock Flush 100 Units/Ml) 300 units FLUSH Q8H [facility]IE Insulin Glargine (Lantus Solostar) 20 units SUBCUT BEDTIME [facility] Insulin Human Lispro (Humalog) 0 unit SUBCUT TIDMEALS MARIE; Protocol Magnesium Oxide (Magnesium Oxide) 500 mg PO DAILY [facility]IE Metoprolol Tartrate (Lopressor) 50 mg PO BID MARIE Non-Formulary Medication (Budesonide/Formoterol) 2 puff INH BID PRN PRN Reason: Shortness of Breath Non-Formulary Medication (Lactulose [Lactulose]) 30 ml PO TID PRN PRN Reason: Other Non-Formulary Medication (Multivitamin/Iron/Folic Acid [Centrum Adults Tablet]) 1 each PO DAILY [facility] Non-Formulary Medication (Rosuvastatin [Crestor]) 5 mg PO DAILY [facility] Oxycodone HCl (Oxycodone) 10 mg PO Q8H PRN PRN Reason: Pain Pantoprazole Sodium (Protonix) 40 mg PO ACBREAKFAST [facility] Polyethylene Glycol (Miralax) 17 gm PO DAILY [facility] Potassium Chloride (Klor-Con 10) 20 meq PO BIDMEALS [facility] Sertraline HCl (Zoloft) 50 mg PO DAILY [facility] Spironolactone (Aldactone) 12.5 mg PO DAILY [facility] - Mortality Measure Prognosis:: Good (Admit for [facility] antibiotics for the osteomyelitis of the right knee.)
[2020-05-16] MEDS ORDERED: ceFAZolin 1 GM Vial IVPUSH ONE (17:30)
[2020-05-16] MEDS: Potassium Chloride 10 MEQ Tab.ER PO SCH (17:44)
[2020-05-16] MEDS: Insulin Lispro 100 Units/ML 3 ML Vial SUBCUT SCH (17:48)
[2020-05-16] MEDS: Enoxaparin 40 MG/0.4 ML Syringe SUBCUT SCH (19:52)
[2020-05-16] MEDS: Insulin Glargine,Human Rec. Analog 100 Units/ML 3 ML Pen SUBCUT SCH (19:58)
[2020-05-16] MEDS: Gabapentin 300 MG Cap PO SCH (19:59)
[2020-05-16] MEDS: Metoprolol Tartrate 50 MG Tab PO SCH (19:59)
[2020-05-16] MEDS: oxyCODONE 5 MG Tab PO PRN (20:00)
[2020-05-16] MEDS: ALPRAZolam 0.25 MG Tab PO SCH (20:00)
[2020-05-17] MEDS: oxyCODONE 5 MG Tab PO PRN ×3 (04:47→23:39)
[2020-05-17] MEDS: Pantoprazole 40 MG Tab.CR PO SCH (06:46)
[2020-05-17] MEDS: ceFAZolin 1 GM Vial IVPUSH SCH ×4 (07:42→23:38)
[2020-05-17] MEDS: Metoprolol Tartrate 50 MG Tab PO SCH ×2 (07:47→19:41)
[2020-05-17] MEDS: Cholecalciferol (Vitamin D3) 25 MCG Tab PO SCH (07:48)
[2020-05-17] MEDS: Potassium Chloride 10 MEQ Tab.ER PO SCH ×2 (07:48→17:33)
[2020-05-17] MEDS: Aspirin 325 MG Tab.EC PO SCH (07:48)
[2020-05-17] MEDS: Multivitamin Tab PO SCH (07:48)
[2020-05-17] MEDS: Sertraline 25 MG Tab PO SCH (07:49)
[2020-05-17] MEDS: Furosemide 40 MG Tab PO SCH (07:49)
[2020-05-17] MEDS: amLODIPine 10 MG Tab PO SCH (07:50)
[2020-05-17] MEDS: Simvastatin 20 MG Tab PO SCH (07:50)
[2020-05-17] MEDS: Spironolactone 25 MG Tab PO SCH (07:51)
[2020-05-17] MEDS: ALPRAZolam 0.25 MG Tab PO SCH ×3 (07:52→19:40)
[2020-05-17] MEDS: Polyethylene Glycol 3350 Powder 17 GM Packet PO SCH (07:52)
[2020-05-17] MEDS: Gabapentin 300 MG Cap PO SCH ×2 (07:52→19:41)
[2020-05-17] MEDS: Insulin Lispro 100 Units/ML 3 ML Vial SUBCUT SCH ×3 (08:01→17:34)
[2020-05-17] MEDS: Fluticasone Propionate Nasal Spray 16 GM Bottle NASBOTH SCH (08:07)
[2020-05-17] MEDS: Enoxaparin 40 MG/0.4 ML Syringe SUBCUT SCH (19:40)
[2020-05-17] MEDS: Insulin Glargine,Human Rec. Analog 100 Units/ML 3 ML Pen SUBCUT SCH (20:42)
[2020-05-18] MEDS: Pantoprazole 40 MG Tab.CR PO SCH (06:22)
[2020-05-18] MEDS: Gabapentin 300 MG Cap PO SCH ×2 (07:46→19:36)
[2020-05-18] MEDS: Sertraline 25 MG Tab PO SCH (07:46)
[2020-05-18] MEDS: ALPRAZolam 0.25 MG Tab PO SCH (07:46)
[2020-05-18] MEDS: Cholecalciferol (Vitamin D3) 25 MCG Tab PO SCH (07:46)
[2020-05-18] MEDS: Multivitamin Tab PO SCH (07:47)
[2020-05-18] MEDS: Metoprolol Tartrate 50 MG Tab PO SCH ×2 (07:47→19:36)
[2020-05-18] MEDS: Furosemide 40 MG Tab PO SCH (07:47)
[2020-05-18] MEDS: Potassium Chloride 10 MEQ Tab.ER PO SCH ×2 (07:49→16:39)
[2020-05-18] MEDS: ceFAZolin 1 GM Vial IVPUSH SCH ×3 (07:50→23:38)
[2020-05-18] MEDS: Spironolactone 25 MG Tab PO SCH (07:50)
[2020-05-18] MEDS: amLODIPine 10 MG Tab PO SCH (07:50)
[2020-05-18] MEDS: Polyethylene Glycol 3350 Powder 17 GM Packet PO SCH (07:51)
[2020-05-18] MEDS: Simvastatin 20 MG Tab PO SCH (07:52)
[2020-05-18] MEDS: Fluticasone Propionate Nasal Spray 16 GM Bottle NASBOTH SCH (07:52)
[2020-05-18] MEDS: Aspirin 325 MG Tab.EC PO SCH (07:52)
[2020-05-18] MEDS: Insulin Lispro 100 Units/ML 3 ML Vial SUBCUT SCH ×3 (07:56→17:12)
[2020-05-18] MEDS: Insulin Glargine,Human Rec. Analog 100 Units/ML 3 ML Pen SUBCUT SCH (19:35)
[2020-05-18] MEDS: Enoxaparin 40 MG/0.4 ML Syringe SUBCUT SCH (19:37)
[2020-05-18] MEDS: oxyCODONE 5 MG Tab PO PRN (21:09)
[2020-05-19] MEDS: ceFAZolin 1 GM Vial IVPUSH SCH ×2 (07:41→16:55)
[2020-05-19] MEDS: Polyethylene Glycol 3350 Powder 17 GM Packet PO SCH (07:41)
[2020-05-19] MEDS: amLODIPine 10 MG Tab PO SCH (07:42)
[2020-05-19] MEDS: Metoprolol Tartrate 50 MG Tab PO SCH ×2 (07:42→19:42)
[2020-05-19] MEDS: Potassium Chloride 10 MEQ Tab.ER PO SCH ×2 (07:42→16:54)
[2020-05-19] MEDS: Spironolactone 25 MG Tab PO SCH (07:42)
[2020-05-19] MEDS: Cholecalciferol (Vitamin D3) 25 MCG Tab PO SCH (07:42)
[2020-05-19] MEDS: Sertraline 25 MG Tab PO SCH (07:42)
[2020-05-19] MEDS: Gabapentin 300 MG Cap PO SCH ×2 (07:42→19:41)
[2020-05-19] MEDS: Furosemide 40 MG Tab PO SCH (07:42)
[2020-05-19] MEDS: Insulin Lispro 100 Units/ML 3 ML Vial SUBCUT SCH ×3 (07:43→17:07)
[2020-05-19] MEDS: Multivitamin Tab PO SCH (07:43)
[2020-05-19] MEDS: Aspirin 325 MG Tab.EC PO SCH (07:43)
[2020-05-19] MEDS: Simvastatin 20 MG Tab PO SCH (07:43)
[2020-05-19] MEDS: Pantoprazole 40 MG Tab.CR PO SCH (07:43)
[2020-05-19] MEDS: Fluticasone Propionate Nasal Spray 16 GM Bottle NASBOTH SCH (07:44)
[2020-05-19] MEDS: Enoxaparin 40 MG/0.4 ML Syringe SUBCUT SCH (19:41)
[2020-05-19] MEDS: Insulin Glargine,Human Rec. Analog 100 Units/ML 3 ML Pen SUBCUT SCH (20:41)
[2020-05-19] MEDS: oxyCODONE 5 MG Tab PO PRN (20:46)
[2020-05-19] MEDS ORDERED: Insulin Lispro 100 Units/ML 3 ML Vial SUBCUT ONE (20:48)
[2020-05-20] MEDS: ceFAZolin 1 GM Vial IVPUSH SCH ×3 (00:55→16:42)
[2020-05-20] MEDS: Pantoprazole 40 MG Tab.CR PO SCH (06:59)
[2020-05-20 07:38] LABS: CHLORIDE,CL 100 mEq/L (98-106); SODIUM,NA 136 mEq/L (136-145)
[2020-05-20] MEDS: Metoprolol Tartrate 50 MG Tab PO SCH ×2 (07:48→19:54)
[2020-05-20] MEDS: Spironolactone 25 MG Tab PO SCH (07:48)
[2020-05-20] MEDS: Polyethylene Glycol 3350 Powder 17 GM Packet PO SCH (07:48)
[2020-05-20] MEDS: Furosemide 40 MG Tab PO SCH (07:48)
[2020-05-20] MEDS: Sertraline 25 MG Tab PO SCH (07:49)
[2020-05-20] MEDS: Potassium Chloride 10 MEQ Tab.ER PO SCH ×2 (07:49→17:06)
[2020-05-20] MEDS: amLODIPine 10 MG Tab PO SCH (07:50)
[2020-05-20] MEDS: Simvastatin 20 MG Tab PO SCH (07:50)
[2020-05-20] MEDS: Aspirin 325 MG Tab.EC PO SCH (07:51)
[2020-05-20] MEDS: Gabapentin 300 MG Cap PO SCH ×2 (07:51→19:56)
[2020-05-20] MEDS: Multivitamin Tab PO SCH (07:51)
[2020-05-20] MEDS: Cholecalciferol (Vitamin D3) 25 MCG Tab PO SCH (07:51)
[2020-05-20] MEDS: Acetaminophen 325 MG Tab PO PRN (07:57)
[2020-05-20] MEDS: oxyCODONE 5 MG Tab PO PRN (07:58)
[2020-05-20] MEDS: Fluticasone Propionate Nasal Spray 16 GM Bottle NASBOTH SCH (08:08)
[2020-05-20] MEDS: Insulin Lispro 100 Units/ML 3 ML Vial SUBCUT SCH ×3 (08:10→17:07)
[2020-05-20] MEDS: Cyanocobalamin (Vitamin B12) 1,000 MCG/ML SDV IM SCH (09:41)
[2020-05-20] MEDS: Enoxaparin 40 MG/0.4 ML Syringe SUBCUT SCH (19:56)
[2020-05-20] MEDS: Insulin Glargine,Human Rec. Analog 100 Units/ML 3 ML Pen SUBCUT SCH (19:56)
[2020-05-21] MEDS: ceFAZolin 1 GM Vial IVPUSH SCH ×3 (01:00→16:41)
[2020-05-21] MEDS: Spironolactone 25 MG Tab PO SCH (07:53)
[2020-05-21] MEDS: Simvastatin 20 MG Tab PO SCH (07:53)
[2020-05-21] MEDS: amLODIPine 10 MG Tab PO SCH (07:53)
[2020-05-21] MEDS: Aspirin 325 MG Tab.EC PO SCH (07:53)
[2020-05-21] MEDS: Metoprolol Tartrate 50 MG Tab PO SCH ×2 (07:54→19:49)
[2020-05-21] MEDS: Gabapentin 300 MG Cap PO SCH ×2 (07:54→19:51)
[2020-05-21] MEDS: Potassium Chloride 10 MEQ Tab.ER PO SCH ×2 (07:54→17:46)
[2020-05-21] MEDS: Multivitamin Tab PO SCH (07:55)
[2020-05-21] MEDS: Cholecalciferol (Vitamin D3) 25 MCG Tab PO SCH (07:55)
[2020-05-21] MEDS: Sertraline 25 MG Tab PO SCH (07:56)
[2020-05-21] MEDS: Furosemide 40 MG Tab PO SCH (07:56)
[2020-05-21] MEDS: Pantoprazole 40 MG Tab.CR PO SCH (07:56)
[2020-05-21] MEDS: Fluticasone Propionate Nasal Spray 16 GM Bottle NASBOTH SCH (07:59)
[2020-05-21] MEDS: Polyethylene Glycol 3350 Powder 17 GM Packet PO SCH (07:59)
[2020-05-21] MEDS: Insulin Lispro 100 Units/ML 3 ML Vial SUBCUT SCH ×3 (08:00→17:45)
[2020-05-21] MEDS: oxyCODONE 5 MG Tab PO PRN (10:56)
[2020-05-21] MEDS: Enoxaparin 40 MG/0.4 ML Syringe SUBCUT SCH (19:51)
[2020-05-21] MEDS: Insulin Glargine,Human Rec. Analog 100 Units/ML 3 ML Pen SUBCUT SCH (19:52)
[2020-05-22] MEDS: ceFAZolin 1 GM Vial IVPUSH SCH ×3 (00:23→16:19)
[2020-05-22] MEDS: ALPRAZolam 0.25 MG Tab PO PRN ×2 (00:26→20:43)
[2020-05-22] MEDS: Cholecalciferol (Vitamin D3) 25 MCG Tab PO SCH (07:54)
[2020-05-22] MEDS: amLODIPine 10 MG Tab PO SCH (07:55)
[2020-05-22] MEDS: Furosemide 40 MG Tab PO SCH (07:55)
[2020-05-22] MEDS: Metoprolol Tartrate 50 MG Tab PO SCH ×2 (07:55→20:40)
[2020-05-22] MEDS: Aspirin 325 MG Tab.EC PO SCH (07:56)
[2020-05-22] MEDS: Potassium Chloride 10 MEQ Tab.ER PO SCH ×2 (07:56→17:46)
[2020-05-22] MEDS: Spironolactone 25 MG Tab PO SCH (07:56)
[2020-05-22] MEDS: Multivitamin Tab PO SCH (07:56)
[2020-05-22] MEDS: Pantoprazole 40 MG Tab.CR PO SCH (07:57)
[2020-05-22] MEDS: Sertraline 25 MG Tab PO SCH (07:57)
[2020-05-22] MEDS: Fluticasone Propionate Nasal Spray 16 GM Bottle NASBOTH SCH (07:58)
[2020-05-22] MEDS: Simvastatin 20 MG Tab PO SCH (07:58)
[2020-05-22] MEDS: Gabapentin 300 MG Cap PO SCH ×2 (07:58→20:40)
[2020-05-22] MEDS: Insulin Lispro 100 Units/ML 3 ML Vial SUBCUT SCH ×3 (08:12→17:20)
[2020-05-22] MEDS: Polyethylene Glycol 3350 Powder 17 GM Packet PO SCH (08:18)
[2020-05-22] MEDS: Insulin Glargine,Human Rec. Analog 100 Units/ML 3 ML Pen SUBCUT SCH (20:37)
[2020-05-22] MEDS: Enoxaparin 40 MG/0.4 ML Syringe SUBCUT SCH (20:38)
[2020-05-23] MEDS: ceFAZolin 1 GM Vial IVPUSH SCH ×4 (00:41→23:54)
[2020-05-23] MEDS: Acetaminophen 325 MG Tab PO PRN ×2 (05:05→23:55)
[2020-05-23] MEDS: Pantoprazole 40 MG Tab.CR PO SCH (06:14)
[2020-05-23] MEDS: Potassium Chloride 10 MEQ Tab.ER PO SCH ×2 (07:41→17:29)
[2020-05-23] MEDS: Sertraline 25 MG Tab PO SCH (07:41)
[2020-05-23] MEDS: Simvastatin 20 MG Tab PO SCH (07:41)
[2020-05-23] MEDS: Polyethylene Glycol 3350 Powder 17 GM Packet PO SCH (07:41)
[2020-05-23] MEDS: Furosemide 40 MG Tab PO SCH (07:41)
[2020-05-23] MEDS: Multivitamin Tab PO SCH (07:41)
[2020-05-23] MEDS: Cholecalciferol (Vitamin D3) 25 MCG Tab PO SCH (07:42)
[2020-05-23] MEDS: Aspirin 325 MG Tab.EC PO SCH (07:42)
[2020-05-23] MEDS: Spironolactone 25 MG Tab PO SCH (07:42)
[2020-05-23] MEDS: Gabapentin 300 MG Cap PO SCH ×2 (07:42→19:51)
[2020-05-23] MEDS: Metoprolol Tartrate 50 MG Tab PO SCH ×2 (07:42→19:51)
[2020-05-23] MEDS: amLODIPine 10 MG Tab PO SCH (07:42)
[2020-05-23] MEDS: Fluticasone Propionate Nasal Spray 16 GM Bottle NASBOTH SCH (07:45)
[2020-05-23] MEDS: Insulin Lispro 100 Units/ML 3 ML Vial SUBCUT SCH ×3 (08:21→17:29)
[2020-05-23] MEDS: Enoxaparin 40 MG/0.4 ML Syringe SUBCUT SCH (19:50)
[2020-05-23] MEDS: Insulin Glargine,Human Rec. Analog 100 Units/ML 3 ML Pen SUBCUT SCH (19:56)
[2020-05-24] MEDS: Pantoprazole 40 MG Tab.CR PO SCH (07:37)
[2020-05-24] MEDS: Cholecalciferol (Vitamin D3) 25 MCG Tab PO SCH (07:38)
[2020-05-24] MEDS: amLODIPine 10 MG Tab PO SCH (07:38)
[2020-05-24] MEDS: Multivitamin Tab PO SCH (07:39)
[2020-05-24] MEDS: Simvastatin 20 MG Tab PO SCH (07:39)
[2020-05-24] MEDS: Metoprolol Tartrate 50 MG Tab PO SCH ×2 (07:39→20:05)
[2020-05-24] MEDS: Gabapentin 300 MG Cap PO SCH ×2 (07:39→20:06)
[2020-05-24] MEDS: Potassium Chloride 10 MEQ Tab.ER PO SCH ×2 (07:40→16:45)
[2020-05-24] MEDS: Sertraline 25 MG Tab PO SCH (07:40)
[2020-05-24] MEDS: Furosemide 40 MG Tab PO SCH (07:41)
[2020-05-24] MEDS: Spironolactone 25 MG Tab PO SCH (07:41)
[2020-05-24] MEDS: Aspirin 325 MG Tab.EC PO SCH (07:41)
[2020-05-24] MEDS: ceFAZolin 1 GM Vial IVPUSH SCH ×2 (07:42→16:45)
[2020-05-24] MEDS: Polyethylene Glycol 3350 Powder 17 GM Packet PO SCH ×2 (07:42→07:50)
[2020-05-24] MEDS: Fluticasone Propionate Nasal Spray 16 GM Bottle NASBOTH SCH (07:43)
[2020-05-24] MEDS: Insulin Lispro 100 Units/ML 3 ML Vial SUBCUT SCH ×3 (07:43→17:04)
[2020-05-24] MEDS: oxyCODONE 5 MG Tab PO PRN (16:55)
[2020-05-24] MEDS: ALPRAZolam 0.25 MG Tab PO PRN (16:55)
[2020-05-24] MEDS: Enoxaparin 40 MG/0.4 ML Syringe SUBCUT SCH (20:06)
[2020-05-24] MEDS: Insulin Glargine,Human Rec. Analog 100 Units/ML 3 ML Pen SUBCUT SCH (20:16)
[2020-05-25] MEDS: ceFAZolin 1 GM Vial IVPUSH SCH ×4 (00:21→23:27)
[2020-05-25] MEDS: Cholecalciferol (Vitamin D3) 25 MCG Tab PO SCH (07:41)
[2020-05-25] MEDS: Pantoprazole 40 MG Tab.CR PO SCH (07:41)
[2020-05-25] MEDS: Furosemide 40 MG Tab PO SCH (07:42)
[2020-05-25] MEDS: Potassium Chloride 10 MEQ Tab.ER PO SCH ×2 (07:42→16:58)
[2020-05-25] MEDS: Sertraline 25 MG Tab PO SCH (07:43)
[2020-05-25] MEDS: Spironolactone 25 MG Tab PO SCH (07:43)
[2020-05-25] MEDS: Metoprolol Tartrate 50 MG Tab PO SCH ×2 (07:44→20:00)
[2020-05-25] MEDS: Aspirin 325 MG Tab.EC PO SCH (07:44)
[2020-05-25] MEDS: Multivitamin Tab PO SCH (07:44)
[2020-05-25] MEDS: Gabapentin 300 MG Cap PO SCH ×2 (07:44→20:01)
[2020-05-25] MEDS: amLODIPine 10 MG Tab PO SCH (07:45)
[2020-05-25] MEDS: Simvastatin 20 MG Tab PO SCH (07:45)
[2020-05-25] MEDS: Polyethylene Glycol 3350 Powder 17 GM Packet PO SCH (07:46)
[2020-05-25] MEDS: Fluticasone Propionate Nasal Spray 16 GM Bottle NASBOTH SCH (07:46)
[2020-05-25] MEDS: oxyCODONE 5 MG Tab PO PRN (07:53)
[2020-05-25] MEDS: Acetaminophen 325 MG Tab PO PRN (07:54)
[2020-05-25] MEDS: Insulin Lispro 100 Units/ML 3 ML Vial SUBCUT SCH ×3 (07:55→16:57)
[2020-05-25] MEDS: Enoxaparin 40 MG/0.4 ML Syringe SUBCUT SCH (20:01)
[2020-05-25] MEDS: Insulin Glargine,Human Rec. Analog 100 Units/ML 3 ML Pen SUBCUT SCH (20:09)
[2020-05-26] MEDS: ceFAZolin 1 GM Vial IVPUSH SCH ×2 (08:00→16:14)
[2020-05-26] MEDS: Polyethylene Glycol 3350 Powder 17 GM Packet PO SCH (08:02)
[2020-05-26] MEDS: Sertraline 25 MG Tab PO SCH (08:02)
[2020-05-26] MEDS: Metoprolol Tartrate 50 MG Tab PO SCH ×2 (08:03→19:39)
[2020-05-26] MEDS: Potassium Chloride 10 MEQ Tab.ER PO SCH ×2 (08:03→16:57)
[2020-05-26] MEDS: Gabapentin 300 MG Cap PO SCH ×2 (08:03→19:41)
[2020-05-26] MEDS: Furosemide 40 MG Tab PO SCH (08:04)
[2020-05-26] MEDS: Simvastatin 20 MG Tab PO SCH (08:04)
[2020-05-26] MEDS: amLODIPine 10 MG Tab PO SCH (08:04)
[2020-05-26] MEDS: Spironolactone 25 MG Tab PO SCH (08:05)
[2020-05-26] MEDS: Pantoprazole 40 MG Tab.CR PO SCH (08:05)
[2020-05-26] MEDS: Cholecalciferol (Vitamin D3) 25 MCG Tab PO SCH (08:05)
[2020-05-26] MEDS: Aspirin 325 MG Tab.EC PO SCH (08:06)
[2020-05-26] MEDS: Fluticasone Propionate Nasal Spray 16 GM Bottle NASBOTH SCH (08:06)
[2020-05-26] MEDS: Multivitamin Tab PO SCH (08:06)
[2020-05-26] MEDS: Insulin Lispro 100 Units/ML 3 ML Vial SUBCUT SCH ×3 (08:09→16:57)
[2020-05-26] MEDS: Acetaminophen 325 MG Tab PO PRN (08:14)
[2020-05-26] MEDS: oxyCODONE 5 MG Tab PO PRN (08:14)
[2020-05-26] MEDS: Insulin Glargine,Human Rec. Analog 100 Units/ML 3 ML Pen SUBCUT SCH (19:37)
[2020-05-26] MEDS: Enoxaparin 40 MG/0.4 ML Syringe SUBCUT SCH (19:39)
[2020-05-27] MEDS: ceFAZolin 1 GM Vial IVPUSH SCH ×3 (00:10→16:45)
[2020-05-27] MEDS: oxyCODONE 5 MG Tab PO PRN (04:17)
[2020-05-27] MEDS: Acetaminophen 325 MG Tab PO PRN (04:18)
[2020-05-27] MEDS: Pantoprazole 40 MG Tab.CR PO SCH (06:20)
[2020-05-27] MEDS: Multivitamin Tab PO SCH (07:34)
[2020-05-27] MEDS: Spironolactone 25 MG Tab PO SCH (07:34)
[2020-05-27] MEDS: Furosemide 40 MG Tab PO SCH (07:34)
[2020-05-27] MEDS: Sertraline 25 MG Tab PO SCH (07:35)
[2020-05-27] MEDS: Aspirin 325 MG Tab.EC PO SCH (07:35)
[2020-05-27] MEDS: Cholecalciferol (Vitamin D3) 25 MCG Tab PO SCH (07:35)
[2020-05-27] MEDS: Gabapentin 300 MG Cap PO SCH ×2 (07:35→20:09)
[2020-05-27] MEDS: Potassium Chloride 10 MEQ Tab.ER PO SCH ×2 (07:35→16:49)
[2020-05-27] MEDS: Simvastatin 20 MG Tab PO SCH (07:35)
[2020-05-27] MEDS: Fluticasone Propionate Nasal Spray 16 GM Bottle NASBOTH SCH (07:36)
[2020-05-27] MEDS: Metoprolol Tartrate 50 MG Tab PO SCH ×2 (08:03→20:09)
[2020-05-27] MEDS: amLODIPine 10 MG Tab PO SCH (08:03)
[2020-05-27] MEDS: Polyethylene Glycol 3350 Powder 17 GM Packet PO SCH (08:05)
[2020-05-27] MEDS: Insulin Lispro 100 Units/ML 3 ML Vial SUBCUT SCH ×3 (08:09→16:52)
[2020-05-27] MEDS: Enoxaparin 40 MG/0.4 ML Syringe SUBCUT SCH (20:06)
[2020-05-27] MEDS ORDERED: Insulin Lispro 100 Units/ML 3 ML Vial SUBCUT STA ×2 (20:19→21:26)
[2020-05-27] MEDS: Insulin Glargine,Human Rec. Analog 100 Units/ML 3 ML Pen SUBCUT SCH (20:23)
[2020-05-28] MEDS: ceFAZolin 1 GM Vial IVPUSH SCH ×4 (00:03→23:45)
[2020-05-28] MEDS: Acetaminophen 325 MG Tab PO PRN ×2 (00:07→23:57)
[2020-05-28] MEDS: oxyCODONE 5 MG Tab PO PRN ×2 (00:07→23:58)
[2020-05-28] MEDS: Pantoprazole 40 MG Tab.CR PO SCH (06:53)
[2020-05-28] MEDS: Aspirin 325 MG Tab.EC PO SCH (07:55)
[2020-05-28] MEDS: Metoprolol Tartrate 50 MG Tab PO SCH ×2 (07:55→19:15)
[2020-05-28] MEDS: Multivitamin Tab PO SCH (07:55)
[2020-05-28] MEDS: amLODIPine 10 MG Tab PO SCH (07:55)
[2020-05-28] MEDS: Cholecalciferol (Vitamin D3) 25 MCG Tab PO SCH (07:56)
[2020-05-28] MEDS: Furosemide 40 MG Tab PO SCH (07:56)
[2020-05-28] MEDS: Potassium Chloride 10 MEQ Tab.ER PO SCH ×2 (07:56→17:03)
[2020-05-28] MEDS: Simvastatin 20 MG Tab PO SCH (07:56)
[2020-05-28] MEDS: Gabapentin 300 MG Cap PO SCH ×2 (07:56→19:15)
[2020-05-28] MEDS: Fluticasone Propionate Nasal Spray 16 GM Bottle NASBOTH SCH (07:56)
[2020-05-28] MEDS: Spironolactone 25 MG Tab PO SCH (07:57)
[2020-05-28] MEDS: Polyethylene Glycol 3350 Powder 17 GM Packet PO SCH (07:58)
[2020-05-28] MEDS: Sertraline 25 MG Tab PO SCH (07:58)
[2020-05-28] MEDS: Insulin Lispro 100 Units/ML 3 ML Vial SUBCUT SCH ×3 (07:58→17:04)
[2020-05-28] MEDS: Insulin Glargine,Human Rec. Analog 100 Units/ML 3 ML Pen SUBCUT SCH (19:13)
[2020-05-28] MEDS: Enoxaparin 40 MG/0.4 ML Syringe SUBCUT SCH (19:15)
[2020-05-29] MEDS: Pantoprazole 40 MG Tab.CR PO SCH (06:11)
[2020-05-29] MEDS: Fluticasone Propionate Nasal Spray 16 GM Bottle NASBOTH SCH (07:49)
[2020-05-29] MEDS: ceFAZolin 1 GM Vial IVPUSH SCH ×2 (07:49→17:24)
[2020-05-29] MEDS: Polyethylene Glycol 3350 Powder 17 GM Packet PO SCH (07:49)
[2020-05-29] MEDS: Multivitamin Tab PO SCH (07:49)
[2020-05-29] MEDS: Furosemide 40 MG Tab PO SCH (07:50)
[2020-05-29] MEDS: Metoprolol Tartrate 50 MG Tab PO SCH ×2 (07:50→19:52)
[2020-05-29] MEDS: Sertraline 25 MG Tab PO SCH (07:50)
[2020-05-29] MEDS: Spironolactone 25 MG Tab PO SCH (07:50)
[2020-05-29] MEDS: Potassium Chloride 10 MEQ Tab.ER PO SCH ×2 (07:50→17:25)
[2020-05-29] MEDS: amLODIPine 10 MG Tab PO SCH (07:51)
[2020-05-29] MEDS: Gabapentin 300 MG Cap PO SCH ×2 (07:51→19:51)
[2020-05-29] MEDS: Cholecalciferol (Vitamin D3) 25 MCG Tab PO SCH (07:51)
[2020-05-29] MEDS: Simvastatin 20 MG Tab PO SCH (07:51)
[2020-05-29] MEDS: Aspirin 325 MG Tab.EC PO SCH (07:51)
[2020-05-29] MEDS: Insulin Lispro 100 Units/ML 3 ML Vial SUBCUT SCH ×3 (07:52→17:33)
[2020-05-29] MEDS: Enoxaparin 40 MG/0.4 ML Syringe SUBCUT SCH (19:52)
[2020-05-29] MEDS: Insulin Glargine,Human Rec. Analog 100 Units/ML 3 ML Pen SUBCUT SCH (19:56)
[2020-05-30] MEDS: ceFAZolin 1 GM Vial IVPUSH SCH ×3 (00:06→15:38)
[2020-05-30] MEDS: oxyCODONE 5 MG Tab PO PRN ×2 (00:17→12:23)
[2020-05-30] MEDS: Acetaminophen 325 MG Tab PO PRN ×2 (00:17→12:23)
[2020-05-30] MEDS: Pantoprazole 40 MG Tab.CR PO SCH (06:04)
[2020-05-30] MEDS: Insulin Lispro 100 Units/ML 3 ML Vial SUBCUT SCH ×3 (07:28→17:11)
[2020-05-30] MEDS: Fluticasone Propionate Nasal Spray 16 GM Bottle NASBOTH SCH (07:29)
[2020-05-30] MEDS: Polyethylene Glycol 3350 Powder 17 GM Packet PO SCH (07:30)
[2020-05-30] MEDS: Cholecalciferol (Vitamin D3) 25 MCG Tab PO SCH (07:31)
[2020-05-30] MEDS: Sertraline 25 MG Tab PO SCH (07:31)
[2020-05-30] MEDS: Metoprolol Tartrate 50 MG Tab PO SCH ×2 (07:31→20:00)
[2020-05-30] MEDS: Multivitamin Tab PO SCH (07:31)
[2020-05-30] MEDS: Potassium Chloride 10 MEQ Tab.ER PO SCH ×2 (07:31→17:11)
[2020-05-30] MEDS: Furosemide 40 MG Tab PO SCH (07:32)
[2020-05-30] MEDS: Spironolactone 25 MG Tab PO SCH (07:32)
[2020-05-30] MEDS: amLODIPine 10 MG Tab PO SCH (07:32)
[2020-05-30] MEDS: Simvastatin 20 MG Tab PO SCH (07:33)
[2020-05-30] MEDS: Aspirin 325 MG Tab.EC PO SCH (07:33)
[2020-05-30] MEDS: Gabapentin 300 MG Cap PO SCH ×2 (07:33→20:00)
--- NOTE | 2020-05-30 13:29 | PN ---
DATE: 05/30/2020 S: John is a 65-year-old gentleman who was initially admitted to the hospital on the 05/16, in which he was transferred from [place] after undergoing a surgical procedure in regard to osteomyelitis of his right knee. He was admitted for IV antibiotics for 40 days. John states he is doing well. Feels that the swelling is much improved. Denies any drainage from the site. No discomfort from the site. He states overall he is feeling well. He is not running any fevers presently. States appetite is well. Denies any current concerns. O: VITAL SIGNS: Blood pressure is 145/72, pulse 69, O2 is 96% on room air, with a temperature of 97.6, respirations 16. GENERAL: A pleasant, cooperative male. He does not appear to be in any distress. He is sitting up and having lunch this afternoon. HEENT: Grossly unremarkable. LUNGS: Clear to auscultation. I do not hear any adventitious sounds. CARDIAC: Regular rate and rhythm. No murmurs, gallops, or rubs noted. No pedal edema is noted. EXTREMITIES: Examination of the right knee shows nontender with palpation. I do not feel any increased warmth. No erythema present. There is no drainage noted. It does appear to be healing well. Pedal pulses are diminished bilaterally. He does have stasis dermatitis of bilateral lower extremities. ASSESSMENT: 1. OSTEOMYELITIS, RIGHT KNEE, IMPROVING. 2. UNCONTROLLED DIABETES MELLITUS. P: This is a 14-day recertification. We will continue IV antibiotics with anticipated discharge date of 06/25/2020. We will adjust insulin doses to try to have better control of his diabetes. Patient is in agreement. CATE/SYMONE /[id number]
[2020-05-30] MEDS: Enoxaparin 40 MG/0.4 ML Syringe SUBCUT SCH (19:57)
[2020-05-30] MEDS: Insulin Glargine,Human Rec. Analog 100 Units/ML 3 ML Pen SUBCUT SCH (19:58)
[2020-05-31] MEDS: ceFAZolin 1 GM Vial IVPUSH SCH ×3 (00:05→16:10)
[2020-05-31] MEDS: oxyCODONE 5 MG Tab PO PRN ×2 (00:14→16:58)
[2020-05-31] MEDS: Acetaminophen 325 MG Tab PO PRN ×2 (00:14→16:58)
[2020-05-31] MEDS: Pantoprazole 40 MG Tab.CR PO SCH (06:50)
[2020-05-31] MEDS: Polyethylene Glycol 3350 Powder 17 GM Packet PO SCH (07:24)
[2020-05-31] MEDS: Fluticasone Propionate Nasal Spray 16 GM Bottle NASBOTH SCH (07:25)
[2020-05-31] MEDS: Insulin Lispro 100 Units/ML 3 ML Vial SUBCUT SCH ×3 (07:28→17:00)
[2020-05-31] MEDS: Spironolactone 25 MG Tab PO SCH (07:30)
[2020-05-31] MEDS: Sertraline 25 MG Tab PO SCH (07:30)
[2020-05-31] MEDS: Potassium Chloride 10 MEQ Tab.ER PO SCH ×2 (07:30→16:57)
[2020-05-31] MEDS: Gabapentin 300 MG Cap PO SCH ×2 (07:31→19:51)
[2020-05-31] MEDS: Aspirin 325 MG Tab.EC PO SCH (07:31)
[2020-05-31] MEDS: Cholecalciferol (Vitamin D3) 25 MCG Tab PO SCH (07:31)
[2020-05-31] MEDS: Metoprolol Tartrate 50 MG Tab PO SCH ×2 (07:31→19:50)
[2020-05-31] MEDS: Simvastatin 20 MG Tab PO SCH (07:31)
[2020-05-31] MEDS: Furosemide 40 MG Tab PO SCH (07:32)
[2020-05-31] MEDS: amLODIPine 10 MG Tab PO SCH (07:32)
[2020-05-31] MEDS: Multivitamin Tab PO SCH (07:33)
[2020-05-31] MEDS: Enoxaparin 40 MG/0.4 ML Syringe SUBCUT SCH (19:51)
[2020-05-31] MEDS: Insulin Glargine,Human Rec. Analog 100 Units/ML 3 ML Pen SUBCUT SCH (20:22)
[2020-06-01] MEDS: ceFAZolin 1 GM Vial IVPUSH SCH ×3 (01:23→16:24)
[2020-06-01] MEDS: Insulin Lispro 100 Units/ML 3 ML Vial SUBCUT SCH ×3 (08:08→17:09)
[2020-06-01] MEDS: Fluticasone Propionate Nasal Spray 16 GM Bottle NASBOTH SCH (08:09)
[2020-06-01] MEDS: Potassium Chloride 10 MEQ Tab.ER PO SCH ×2 (08:13→17:09)
[2020-06-01] MEDS: Pantoprazole 40 MG Tab.CR PO SCH (08:14)
[2020-06-01] MEDS: Spironolactone 25 MG Tab PO SCH (08:14)
[2020-06-01] MEDS: Multivitamin Tab PO SCH (08:15)
[2020-06-01] MEDS: Sertraline 25 MG Tab PO SCH (08:15)
[2020-06-01] MEDS: Aspirin 325 MG Tab.EC PO SCH (08:15)
[2020-06-01] MEDS: amLODIPine 10 MG Tab PO SCH (08:16)
[2020-06-01] MEDS: Cholecalciferol (Vitamin D3) 25 MCG Tab PO SCH (08:16)
[2020-06-01] MEDS: Simvastatin 20 MG Tab PO SCH (08:16)
[2020-06-01] MEDS: Metoprolol Tartrate 50 MG Tab PO SCH ×2 (08:17→19:58)
[2020-06-01] MEDS: Furosemide 40 MG Tab PO SCH (08:17)
[2020-06-01] MEDS: Gabapentin 300 MG Cap PO SCH ×2 (08:17→19:59)
[2020-06-01] MEDS: Polyethylene Glycol 3350 Powder 17 GM Packet PO SCH (08:19)
[2020-06-01] MEDS: oxyCODONE 5 MG Tab PO PRN (10:10)
[2020-06-01] MEDS: Acetaminophen 325 MG Tab PO PRN (10:10)
[2020-06-01] MEDS: Enoxaparin 40 MG/0.4 ML Syringe SUBCUT SCH (19:53)
[2020-06-01] MEDS: Insulin Glargine,Human Rec. Analog 100 Units/ML 3 ML Pen SUBCUT SCH (19:59)
[2020-06-01] MEDS ORDERED: Insulin Lispro 100 Units/ML 3 ML Vial SUBCUT ONE (20:43)
[2020-06-02] MEDS: oxyCODONE 5 MG Tab PO PRN (01:20)
[2020-06-02] MEDS: ceFAZolin 1 GM Vial IVPUSH SCH ×3 (01:20→15:45)
[2020-06-02] MEDS: Acetaminophen 325 MG Tab PO PRN (01:20)
[2020-06-02] MEDS: Potassium Chloride 10 MEQ Tab.ER PO SCH ×2 (08:03→17:10)
[2020-06-02] MEDS: Gabapentin 300 MG Cap PO SCH ×2 (08:04→20:10)
[2020-06-02] MEDS: amLODIPine 10 MG Tab PO SCH (08:04)
[2020-06-02] MEDS: Pantoprazole 40 MG Tab.CR PO SCH (08:04)
[2020-06-02] MEDS: Multivitamin Tab PO SCH (08:04)
[2020-06-02] MEDS: Sertraline 25 MG Tab PO SCH (08:04)
[2020-06-02] MEDS: Metoprolol Tartrate 50 MG Tab PO SCH ×2 (08:05→20:09)
[2020-06-02] MEDS: Furosemide 40 MG Tab PO SCH (08:05)
[2020-06-02] MEDS: Spironolactone 25 MG Tab PO SCH (08:05)
[2020-06-02] MEDS: Cholecalciferol (Vitamin D3) 25 MCG Tab PO SCH (08:05)
[2020-06-02] MEDS: Aspirin 325 MG Tab.EC PO SCH (08:05)
[2020-06-02] MEDS: Simvastatin 20 MG Tab PO SCH (08:05)
[2020-06-02] MEDS: Polyethylene Glycol 3350 Powder 17 GM Packet PO SCH (08:07)
[2020-06-02] MEDS: Fluticasone Propionate Nasal Spray 16 GM Bottle NASBOTH SCH (08:12)
[2020-06-02] MEDS: Insulin Lispro 100 Units/ML 3 ML Vial SUBCUT SCH ×3 (08:22→17:11)
[2020-06-02] MEDS: Enoxaparin 40 MG/0.4 ML Syringe SUBCUT SCH (20:11)
[2020-06-02] MEDS: Insulin Glargine,Human Rec. Analog 100 Units/ML 3 ML Pen SUBCUT SCH (20:11)
[2020-06-03] MEDS: ceFAZolin 1 GM Vial IVPUSH SCH ×3 (00:34→16:21)
[2020-06-03] MEDS: oxyCODONE 5 MG Tab PO PRN ×2 (00:34→20:10)
[2020-06-03] MEDS: Acetaminophen 325 MG Tab PO PRN ×2 (00:34→20:10)
[2020-06-03] MEDS: Pantoprazole 40 MG Tab.CR PO SCH (08:19)
[2020-06-03] MEDS: Polyethylene Glycol 3350 Powder 17 GM Packet PO SCH (08:19)
[2020-06-03] MEDS: Insulin Lispro 100 Units/ML 3 ML Vial SUBCUT SCH ×3 (08:23→17:37)
[2020-06-03] MEDS: Sertraline 25 MG Tab PO SCH (08:27)
[2020-06-03] MEDS: Spironolactone 25 MG Tab PO SCH (08:27)
[2020-06-03] MEDS: Gabapentin 300 MG Cap PO SCH ×2 (08:31→20:09)
[2020-06-03] MEDS: Aspirin 325 MG Tab.EC PO SCH (08:31)
[2020-06-03] MEDS: Multivitamin Tab PO SCH (08:32)
[2020-06-03] MEDS: Metoprolol Tartrate 50 MG Tab PO SCH ×2 (08:32→20:09)
[2020-06-03] MEDS: Furosemide 40 MG Tab PO SCH (08:32)
[2020-06-03] MEDS: Cholecalciferol (Vitamin D3) 25 MCG Tab PO SCH (08:32)
[2020-06-03] MEDS: amLODIPine 10 MG Tab PO SCH (08:32)
[2020-06-03] MEDS: Simvastatin 20 MG Tab PO SCH (08:32)
[2020-06-03] MEDS: Potassium Chloride 10 MEQ Tab.ER PO SCH ×2 (08:32→17:40)
[2020-06-03] MEDS: Fluticasone Propionate Nasal Spray 16 GM Bottle NASBOTH SCH (08:35)
[2020-06-03] MEDS: Enoxaparin 40 MG/0.4 ML Syringe SUBCUT SCH (20:10)
[2020-06-03] MEDS: Insulin Glargine,Human Rec. Analog 100 Units/ML 3 ML Pen SUBCUT SCH (20:11)
[2020-06-04] MEDS: ceFAZolin 1 GM Vial IVPUSH SCH ×3 (00:13→17:19)
[2020-06-04] MEDS: Polyethylene Glycol 3350 Powder 17 GM Packet PO SCH (07:57)
[2020-06-04] MEDS: Spironolactone 25 MG Tab PO SCH (07:59)
[2020-06-04] MEDS: Potassium Chloride 10 MEQ Tab.ER PO SCH ×2 (07:59→17:19)
[2020-06-04] MEDS: Simvastatin 20 MG Tab PO SCH (08:00)
[2020-06-04] MEDS: Aspirin 325 MG Tab.EC PO SCH (08:00)
[2020-06-04] MEDS: Pantoprazole 40 MG Tab.CR PO SCH (08:00)
[2020-06-04] MEDS: Sertraline 25 MG Tab PO SCH (08:00)
[2020-06-04] MEDS: Cholecalciferol (Vitamin D3) 25 MCG Tab PO SCH (08:00)
[2020-06-04] MEDS: Multivitamin Tab PO SCH (08:00)
[2020-06-04] MEDS: Furosemide 40 MG Tab PO SCH (08:00)
[2020-06-04] MEDS: amLODIPine 10 MG Tab PO SCH (08:00)
[2020-06-04] MEDS: Metoprolol Tartrate 50 MG Tab PO SCH ×2 (08:01→19:41)
[2020-06-04] MEDS: Gabapentin 300 MG Cap PO SCH ×2 (08:01→19:41)
[2020-06-04] MEDS: Fluticasone Propionate Nasal Spray 16 GM Bottle NASBOTH SCH (08:12)
[2020-06-04] MEDS: Insulin Lispro 100 Units/ML 3 ML Vial SUBCUT SCH ×3 (08:14→17:28)
[2020-06-04] MEDS: Enoxaparin 40 MG/0.4 ML Syringe SUBCUT SCH (19:42)
[2020-06-04] MEDS: oxyCODONE 5 MG Tab PO PRN (19:48)
[2020-06-04] MEDS: Acetaminophen 325 MG Tab PO PRN (19:48)
[2020-06-04] MEDS: Insulin Glargine,Human Rec. Analog 100 Units/ML 3 ML Pen SUBCUT SCH (20:44)
[2020-06-05] MEDS: ceFAZolin 1 GM Vial IVPUSH SCH ×3 (00:36→15:46)
[2020-06-05] MEDS: Pantoprazole 40 MG Tab.CR PO SCH (06:27)
[2020-06-05] MEDS: Polyethylene Glycol 3350 Powder 17 GM Packet PO SCH (07:51)
[2020-06-05] MEDS: Fluticasone Propionate Nasal Spray 16 GM Bottle NASBOTH SCH (07:52)
[2020-06-05] MEDS: Potassium Chloride 10 MEQ Tab.ER PO SCH ×2 (07:54→17:13)
[2020-06-05] MEDS: Spironolactone 25 MG Tab PO SCH (07:55)
[2020-06-05] MEDS: Sertraline 25 MG Tab PO SCH (07:55)
[2020-06-05] MEDS: Furosemide 40 MG Tab PO SCH (07:56)
[2020-06-05] MEDS: Multivitamin Tab PO SCH (07:56)
[2020-06-05] MEDS: Metoprolol Tartrate 50 MG Tab PO SCH ×2 (07:56→20:12)
[2020-06-05] MEDS: Cholecalciferol (Vitamin D3) 25 MCG Tab PO SCH (07:57)
[2020-06-05] MEDS: amLODIPine 10 MG Tab PO SCH (07:57)
[2020-06-05] MEDS: Simvastatin 20 MG Tab PO SCH (07:58)
[2020-06-05] MEDS: Aspirin 325 MG Tab.EC PO SCH (07:58)
[2020-06-05] MEDS: Gabapentin 300 MG Cap PO SCH ×2 (07:58→20:12)
[2020-06-05] MEDS: Insulin Lispro 100 Units/ML 3 ML Vial SUBCUT SCH ×3 (07:59→17:12)
[2020-06-05] MEDS: oxyCODONE 5 MG Tab PO PRN (11:50)
[2020-06-05] MEDS: Acetaminophen 325 MG Tab PO PRN (11:51)
[2020-06-05] MEDS: Enoxaparin 40 MG/0.4 ML Syringe SUBCUT SCH (20:11)
[2020-06-05] MEDS: Insulin Glargine,Human Rec. Analog 100 Units/ML 3 ML Pen SUBCUT SCH (20:19)
[2020-06-06] MEDS: oxyCODONE 5 MG Tab PO PRN (00:14)
[2020-06-06] MEDS: Acetaminophen 325 MG Tab PO PRN (00:14)
[2020-06-06] MEDS: ceFAZolin 1 GM Vial IVPUSH SCH ×4 (00:36→23:54)
[2020-06-06] MEDS: Pantoprazole 40 MG Tab.CR PO SCH (06:49)
[2020-06-06] MEDS: Insulin Lispro 100 Units/ML 3 ML Vial SUBCUT SCH ×3 (07:40→17:13)
[2020-06-06] MEDS: Polyethylene Glycol 3350 Powder 17 GM Packet PO SCH (07:40)
[2020-06-06] MEDS: Simvastatin 20 MG Tab PO SCH (07:43)
[2020-06-06] MEDS: Gabapentin 300 MG Cap PO SCH ×2 (07:43→19:58)
[2020-06-06] MEDS: Potassium Chloride 10 MEQ Tab.ER PO SCH ×2 (07:43→17:18)
[2020-06-06] MEDS: Multivitamin Tab PO SCH (07:43)
[2020-06-06] MEDS: Fluticasone Propionate Nasal Spray 16 GM Bottle NASBOTH SCH (07:43)
[2020-06-06] MEDS: Aspirin 325 MG Tab.EC PO SCH (07:43)
[2020-06-06] MEDS: Sertraline 25 MG Tab PO SCH (07:43)
[2020-06-06] MEDS: Metoprolol Tartrate 50 MG Tab PO SCH ×2 (07:44→20:00)
[2020-06-06] MEDS: Furosemide 40 MG Tab PO SCH (07:44)
[2020-06-06] MEDS: Spironolactone 25 MG Tab PO SCH (07:44)
[2020-06-06] MEDS: Cholecalciferol (Vitamin D3) 25 MCG Tab PO SCH (07:44)
[2020-06-06] MEDS: amLODIPine 10 MG Tab PO SCH (07:44)
[2020-06-06] MEDS: Enoxaparin 40 MG/0.4 ML Syringe SUBCUT SCH (19:58)
[2020-06-06] MEDS: Insulin Glargine,Human Rec. Analog 100 Units/ML 3 ML Pen SUBCUT SCH (20:01)
[2020-06-07] MEDS: Acetaminophen 325 MG Tab PO PRN (00:45)
[2020-06-07] MEDS: Pantoprazole 40 MG Tab.CR PO SCH (06:24)
[2020-06-07] MEDS: ceFAZolin 1 GM Vial IVPUSH SCH ×2 (08:21→16:01)
[2020-06-07] MEDS: Polyethylene Glycol 3350 Powder 17 GM Packet PO SCH (08:22)
[2020-06-07] MEDS: Multivitamin Tab PO SCH (08:23)
[2020-06-07] MEDS: Aspirin 325 MG Tab.EC PO SCH (08:23)
[2020-06-07] MEDS: amLODIPine 10 MG Tab PO SCH (08:24)
[2020-06-07] MEDS: Metoprolol Tartrate 50 MG Tab PO SCH ×2 (08:24→19:36)
[2020-06-07] MEDS: Potassium Chloride 10 MEQ Tab.ER PO SCH ×2 (08:24→17:04)
[2020-06-07] MEDS: Gabapentin 300 MG Cap PO SCH ×2 (08:24→19:33)
[2020-06-07] MEDS: Spironolactone 25 MG Tab PO SCH (08:24)
[2020-06-07] MEDS: Sertraline 25 MG Tab PO SCH (08:25)
[2020-06-07] MEDS: Furosemide 40 MG Tab PO SCH (08:25)
[2020-06-07] MEDS: Fluticasone Propionate Nasal Spray 16 GM Bottle NASBOTH SCH (08:25)
[2020-06-07] MEDS: Cholecalciferol (Vitamin D3) 25 MCG Tab PO SCH (08:25)
[2020-06-07] MEDS: Simvastatin 20 MG Tab PO SCH (08:25)
[2020-06-07] MEDS: Insulin Lispro 100 Units/ML 3 ML Vial SUBCUT SCH ×3 (08:29→17:04)
[2020-06-07] MEDS: Enoxaparin 40 MG/0.4 ML Syringe SUBCUT SCH (19:36)
[2020-06-07] MEDS: Insulin Glargine,Human Rec. Analog 100 Units/ML 3 ML Pen SUBCUT SCH (19:41)
[2020-06-08] MEDS: ceFAZolin 1 GM Vial IVPUSH SCH ×3 (00:12→17:11)
[2020-06-08] MEDS: oxyCODONE 5 MG Tab PO PRN (00:17)
[2020-06-08] MEDS: Acetaminophen 325 MG Tab PO PRN (00:18)
[2020-06-08] MEDS: Pantoprazole 40 MG Tab.CR PO SCH (06:36)
[2020-06-08] MEDS: Spironolactone 25 MG Tab PO SCH (07:54)
[2020-06-08] MEDS: Gabapentin 300 MG Cap PO SCH ×2 (07:55→21:39)
[2020-06-08] MEDS: Potassium Chloride 10 MEQ Tab.ER PO SCH ×2 (07:55→17:11)
[2020-06-08] MEDS: Cholecalciferol (Vitamin D3) 25 MCG Tab PO SCH (07:56)
[2020-06-08] MEDS: Sertraline 25 MG Tab PO SCH (07:56)
[2020-06-08] MEDS: amLODIPine 10 MG Tab PO SCH (07:57)
[2020-06-08] MEDS: Multivitamin Tab PO SCH (07:57)
[2020-06-08] MEDS: Furosemide 40 MG Tab PO SCH (07:59)
[2020-06-08] MEDS: Metoprolol Tartrate 50 MG Tab PO SCH ×2 (07:59→21:38)
[2020-06-08] MEDS: Simvastatin 20 MG Tab PO SCH (07:59)
[2020-06-08] MEDS: Aspirin 325 MG Tab.EC PO SCH (07:59)
[2020-06-08] MEDS: Polyethylene Glycol 3350 Powder 17 GM Packet PO SCH (08:00)
[2020-06-08] MEDS: Fluticasone Propionate Nasal Spray 16 GM Bottle NASBOTH SCH (08:00)
[2020-06-08] MEDS: Insulin Lispro 100 Units/ML 3 ML Vial SUBCUT SCH ×3 (08:04→17:08)
[2020-06-08] MEDS: Enoxaparin 40 MG/0.4 ML Syringe SUBCUT SCH (21:37)
[2020-06-08] MEDS: Insulin Glargine,Human Rec. Analog 100 Units/ML 3 ML Pen SUBCUT SCH (21:41)
[2020-06-09] MEDS: ceFAZolin 1 GM Vial IVPUSH SCH ×4 (00:06→23:37)
[2020-06-09] MEDS: Pantoprazole 40 MG Tab.CR PO SCH (06:53)
[2020-06-09] MEDS: Polyethylene Glycol 3350 Powder 17 GM Packet PO SCH (07:27)
[2020-06-09] MEDS: Spironolactone 25 MG Tab PO SCH (07:28)
[2020-06-09] MEDS: Cholecalciferol (Vitamin D3) 25 MCG Tab PO SCH (07:28)
[2020-06-09] MEDS: Potassium Chloride 10 MEQ Tab.ER PO SCH ×2 (07:29→16:56)
[2020-06-09] MEDS: Metoprolol Tartrate 50 MG Tab PO SCH ×2 (07:29→20:47)
[2020-06-09] MEDS: Gabapentin 300 MG Cap PO SCH ×2 (07:30→20:47)
[2020-06-09] MEDS: Sertraline 25 MG Tab PO SCH (07:31)
[2020-06-09] MEDS: Simvastatin 20 MG Tab PO SCH (07:31)
[2020-06-09] MEDS: Furosemide 40 MG Tab PO SCH (07:31)
[2020-06-09] MEDS: amLODIPine 10 MG Tab PO SCH (07:33)
[2020-06-09] MEDS: Multivitamin Tab PO SCH (07:33)
[2020-06-09] MEDS: Aspirin 325 MG Tab.EC PO SCH (07:33)
[2020-06-09] MEDS: Fluticasone Propionate Nasal Spray 16 GM Bottle NASBOTH SCH (07:33)
[2020-06-09] MEDS: Insulin Lispro 100 Units/ML 3 ML Vial SUBCUT SCH ×3 (07:34→16:56)
[2020-06-09] MEDS: Enoxaparin 40 MG/0.4 ML Syringe SUBCUT SCH (20:46)
[2020-06-09] MEDS: Insulin Glargine,Human Rec. Analog 100 Units/ML 3 ML Pen SUBCUT SCH (20:46)
[2020-06-10] MEDS: Pantoprazole 40 MG Tab.CR PO SCH (06:22)
[2020-06-10] MEDS: Furosemide 40 MG Tab PO SCH (07:36)
[2020-06-10] MEDS: Simvastatin 20 MG Tab PO SCH (07:36)
[2020-06-10] MEDS: Potassium Chloride 10 MEQ Tab.ER PO SCH ×2 (07:36→17:07)
[2020-06-10] MEDS: Aspirin 325 MG Tab.EC PO SCH (07:36)
[2020-06-10] MEDS: Gabapentin 300 MG Cap PO SCH ×2 (07:37→19:54)
[2020-06-10] MEDS: Multivitamin Tab PO SCH (07:37)
[2020-06-10] MEDS: Metoprolol Tartrate 50 MG Tab PO SCH ×2 (07:37→19:55)
[2020-06-10] MEDS: Sertraline 25 MG Tab PO SCH (07:37)
[2020-06-10] MEDS: Polyethylene Glycol 3350 Powder 17 GM Packet PO SCH (07:38)
[2020-06-10] MEDS: Cholecalciferol (Vitamin D3) 25 MCG Tab PO SCH (07:38)
[2020-06-10] MEDS: Spironolactone 25 MG Tab PO SCH (07:38)
[2020-06-10] MEDS: amLODIPine 10 MG Tab PO SCH (07:38)
[2020-06-10] MEDS: Fluticasone Propionate Nasal Spray 16 GM Bottle NASBOTH SCH (07:39)
[2020-06-10] MEDS: ceFAZolin 1 GM Vial IVPUSH SCH ×3 (07:39→23:50)
[2020-06-10] MEDS: Insulin Lispro 100 Units/ML 3 ML Vial SUBCUT SCH ×3 (07:40→17:08)
[2020-06-10] MEDS: Enoxaparin 40 MG/0.4 ML Syringe SUBCUT SCH (19:54)
[2020-06-10] MEDS: Insulin Glargine,Human Rec. Analog 100 Units/ML 3 ML Pen SUBCUT SCH (19:58)
[2020-06-10] MEDS: Acetaminophen 325 MG Tab PO PRN (23:58)
[2020-06-11] MEDS: Pantoprazole 40 MG Tab.CR PO SCH (06:29)
[2020-06-11] MEDS: Potassium Chloride 10 MEQ Tab.ER PO SCH ×2 (08:16→17:34)
[2020-06-11] MEDS: Gabapentin 300 MG Cap PO SCH ×2 (08:16→20:07)
[2020-06-11] MEDS: Spironolactone 25 MG Tab PO SCH (08:16)
[2020-06-11] MEDS: Sertraline 25 MG Tab PO SCH (08:17)
[2020-06-11] MEDS: Cholecalciferol (Vitamin D3) 25 MCG Tab PO SCH (08:17)
[2020-06-11] MEDS: amLODIPine 10 MG Tab PO SCH (08:18)
[2020-06-11] MEDS: Simvastatin 20 MG Tab PO SCH (08:18)
[2020-06-11] MEDS: Furosemide 40 MG Tab PO SCH (08:18)
[2020-06-11] MEDS: Multivitamin Tab PO SCH (08:18)
[2020-06-11] MEDS: Aspirin 325 MG Tab.EC PO SCH (08:19)
[2020-06-11] MEDS: ceFAZolin 1 GM Vial IVPUSH SCH ×2 (08:19→16:41)
[2020-06-11] MEDS: Metoprolol Tartrate 50 MG Tab PO SCH ×2 (08:19→20:05)
[2020-06-11] MEDS: Fluticasone Propionate Nasal Spray 16 GM Bottle NASBOTH SCH (08:20)
[2020-06-11] MEDS: Insulin Lispro 100 Units/ML 3 ML Vial SUBCUT SCH ×3 (08:20→17:34)
[2020-06-11] MEDS: Polyethylene Glycol 3350 Powder 17 GM Packet PO SCH ×2 (08:21→08:29)
[2020-06-11] MEDS ORDERED: Formoterol/Mometasone 200-5 MCG 8.8 GM Inhaler IH PRN (15:34)
[2020-06-11] MEDS: Enoxaparin 40 MG/0.4 ML Syringe SUBCUT SCH (20:06)
[2020-06-11] MEDS: Insulin Glargine,Human Rec. Analog 100 Units/ML 3 ML Pen SUBCUT SCH (20:09)
[2020-06-12] MEDS: ceFAZolin 1 GM Vial IVPUSH SCH ×3 (00:15→15:29)
[2020-06-12] MEDS: Pantoprazole 40 MG Tab.CR PO SCH (06:46)
[2020-06-12] MEDS: Cholecalciferol (Vitamin D3) 25 MCG Tab PO SCH (08:03)
[2020-06-12] MEDS: Gabapentin 300 MG Cap PO SCH ×2 (08:03→20:29)
[2020-06-12] MEDS: Polyethylene Glycol 3350 Powder 17 GM Packet PO SCH (08:03)
[2020-06-12] MEDS: Simvastatin 20 MG Tab PO SCH (08:03)
[2020-06-12] MEDS: Aspirin 325 MG Tab.EC PO SCH (08:04)
[2020-06-12] MEDS: Potassium Chloride 10 MEQ Tab.ER PO SCH ×2 (08:04→17:09)
[2020-06-12] MEDS: Multivitamin Tab PO SCH (08:04)
[2020-06-12] MEDS: Spironolactone 25 MG Tab PO SCH (08:05)
[2020-06-12] MEDS: Sertraline 25 MG Tab PO SCH (08:05)
[2020-06-12] MEDS: Metoprolol Tartrate 50 MG Tab PO SCH ×2 (08:06→20:30)
[2020-06-12] MEDS: Furosemide 40 MG Tab PO SCH (08:06)
[2020-06-12] MEDS: amLODIPine 10 MG Tab PO SCH (08:06)
[2020-06-12] MEDS: Fluticasone Propionate Nasal Spray 16 GM Bottle NASBOTH SCH (08:07)
[2020-06-12] MEDS: Insulin Lispro 100 Units/ML 3 ML Vial SUBCUT SCH ×3 (08:08→17:23)
[2020-06-12] MEDS: Acetaminophen 325 MG Tab PO PRN (20:29)
[2020-06-12] MEDS: oxyCODONE 5 MG Tab PO PRN (20:29)
[2020-06-12] MEDS: Insulin Glargine,Human Rec. Analog 100 Units/ML 3 ML Pen SUBCUT SCH (20:30)
[2020-06-12] MEDS: Enoxaparin 40 MG/0.4 ML Syringe SUBCUT SCH (20:31)
[2020-06-13] MEDS: ceFAZolin 1 GM Vial IVPUSH SCH ×4 (00:21→23:19)
[2020-06-13] MEDS: Pantoprazole 40 MG Tab.CR PO SCH (06:50)
[2020-06-13] MEDS: Insulin Lispro 100 Units/ML 3 ML Vial SUBCUT SCH ×3 (08:09→17:07)
[2020-06-13] MEDS: Furosemide 40 MG Tab PO SCH (08:35)
[2020-06-13] MEDS: Gabapentin 300 MG Cap PO SCH ×2 (08:36→20:08)
[2020-06-13] MEDS: Sertraline 25 MG Tab PO SCH (08:36)
[2020-06-13] MEDS: Potassium Chloride 10 MEQ Tab.ER PO SCH ×2 (08:36→17:08)
[2020-06-13] MEDS: Metoprolol Tartrate 50 MG Tab PO SCH ×2 (08:36→20:08)
[2020-06-13] MEDS: Spironolactone 25 MG Tab PO SCH (08:36)
[2020-06-13] MEDS: Aspirin 325 MG Tab.EC PO SCH (08:36)
[2020-06-13] MEDS: amLODIPine 10 MG Tab PO SCH (08:36)
[2020-06-13] MEDS: Cholecalciferol (Vitamin D3) 25 MCG Tab PO SCH (08:36)
[2020-06-13] MEDS: Multivitamin Tab PO SCH (08:37)
[2020-06-13] MEDS: Simvastatin 20 MG Tab PO SCH (08:37)
[2020-06-13] MEDS: Fluticasone Propionate Nasal Spray 16 GM Bottle NASBOTH SCH (08:37)
[2020-06-13] MEDS: Polyethylene Glycol 3350 Powder 17 GM Packet PO SCH (08:39)
[2020-06-13] MEDS: Enoxaparin 40 MG/0.4 ML Syringe SUBCUT SCH (20:08)
[2020-06-13] MEDS: Insulin Glargine,Human Rec. Analog 100 Units/ML 3 ML Pen SUBCUT SCH (20:11)
[2020-06-14] MEDS: Pantoprazole 40 MG Tab.CR PO SCH (06:47)
[2020-06-14] MEDS: Spironolactone 25 MG Tab PO SCH (07:55)
[2020-06-14] MEDS: Aspirin 325 MG Tab.EC PO SCH (07:56)
[2020-06-14] MEDS: Fluticasone Propionate Nasal Spray 16 GM Bottle NASBOTH SCH (07:57)
[2020-06-14] MEDS: Potassium Chloride 10 MEQ Tab.ER PO SCH ×2 (07:57→17:17)
[2020-06-14] MEDS: Metoprolol Tartrate 50 MG Tab PO SCH ×2 (07:58→20:11)
[2020-06-14] MEDS: Furosemide 40 MG Tab PO SCH (07:58)
[2020-06-14] MEDS: Polyethylene Glycol 3350 Powder 17 GM Packet PO SCH ×2 (07:59→08:12)
[2020-06-14] MEDS: Gabapentin 300 MG Cap PO SCH ×2 (07:59→20:12)
[2020-06-14] MEDS: amLODIPine 10 MG Tab PO SCH (07:59)
[2020-06-14] MEDS: Multivitamin Tab PO SCH (08:00)
[2020-06-14] MEDS: Cholecalciferol (Vitamin D3) 25 MCG Tab PO SCH (08:00)
[2020-06-14] MEDS: Simvastatin 20 MG Tab PO SCH (08:00)
[2020-06-14] MEDS: Sertraline 25 MG Tab PO SCH (08:02)
[2020-06-14] MEDS: ceFAZolin 1 GM Vial IVPUSH SCH ×2 (08:03→15:52)
[2020-06-14] MEDS: Insulin Lispro 100 Units/ML 3 ML Vial SUBCUT SCH ×3 (08:09→17:15)
[2020-06-14] MEDS: Enoxaparin 40 MG/0.4 ML Syringe SUBCUT SCH (20:12)
[2020-06-14] MEDS: Insulin Glargine,Human Rec. Analog 100 Units/ML 3 ML Pen SUBCUT SCH (20:13)
[2020-06-15] MEDS: ceFAZolin 1 GM Vial IVPUSH SCH ×4 (00:07→23:48)
[2020-06-15] MEDS: Pantoprazole 40 MG Tab.CR PO SCH (06:44)
[2020-06-15] MEDS: Spironolactone 25 MG Tab PO SCH (08:01)
[2020-06-15] MEDS: Aspirin 325 MG Tab.EC PO SCH (08:01)
[2020-06-15] MEDS: Fluticasone Propionate Nasal Spray 16 GM Bottle NASBOTH SCH (08:02)
[2020-06-15] MEDS: Furosemide 40 MG Tab PO SCH (08:02)
[2020-06-15] MEDS: Potassium Chloride 10 MEQ Tab.ER PO SCH ×2 (08:02→17:25)
[2020-06-15] MEDS: Metoprolol Tartrate 50 MG Tab PO SCH ×2 (08:03→19:27)
[2020-06-15] MEDS: Polyethylene Glycol 3350 Powder 17 GM Packet PO SCH (08:04)
[2020-06-15] MEDS: Cholecalciferol (Vitamin D3) 25 MCG Tab PO SCH (08:05)
[2020-06-15] MEDS: Multivitamin Tab PO SCH (08:05)
[2020-06-15] MEDS: amLODIPine 10 MG Tab PO SCH (08:05)
[2020-06-15] MEDS: Gabapentin 300 MG Cap PO SCH ×2 (08:05→19:27)
[2020-06-15] MEDS: Simvastatin 20 MG Tab PO SCH (08:06)
[2020-06-15] MEDS: Sertraline 25 MG Tab PO SCH (08:06)
[2020-06-15] MEDS: Insulin Lispro 100 Units/ML 3 ML Vial SUBCUT SCH ×3 (08:13→17:26)
[2020-06-15] MEDS: Insulin Glargine,Human Rec. Analog 100 Units/ML 3 ML Pen SUBCUT SCH (19:28)
[2020-06-15] MEDS: Enoxaparin 40 MG/0.4 ML Syringe SUBCUT SCH (19:28)
[2020-06-16] MEDS: Pantoprazole 40 MG Tab.CR PO SCH (07:12)
[2020-06-16] MEDS: ceFAZolin 1 GM Vial IVPUSH SCH ×3 (07:49→23:46)
[2020-06-16] MEDS: Metoprolol Tartrate 50 MG Tab PO SCH ×2 (07:56→19:35)
[2020-06-16] MEDS: Potassium Chloride 10 MEQ Tab.ER PO SCH ×2 (07:56→17:09)
[2020-06-16] MEDS: Gabapentin 300 MG Cap PO SCH ×2 (07:56→19:35)
[2020-06-16] MEDS: amLODIPine 10 MG Tab PO SCH (07:57)
[2020-06-16] MEDS: Aspirin 325 MG Tab.EC PO SCH (07:58)
[2020-06-16] MEDS: Spironolactone 25 MG Tab PO SCH (07:58)
[2020-06-16] MEDS: Fluticasone Propionate Nasal Spray 16 GM Bottle NASBOTH SCH (07:59)
[2020-06-16] MEDS: Furosemide 40 MG Tab PO SCH (08:00)
[2020-06-16] MEDS: Multivitamin Tab PO SCH (08:01)
[2020-06-16] MEDS: Cholecalciferol (Vitamin D3) 25 MCG Tab PO SCH (08:01)
[2020-06-16] MEDS: Sertraline 25 MG Tab PO SCH (08:01)
[2020-06-16] MEDS: Polyethylene Glycol 3350 Powder 17 GM Packet PO SCH (08:02)
[2020-06-16] MEDS: Simvastatin 20 MG Tab PO SCH (08:03)
[2020-06-16] MEDS: Insulin Lispro 100 Units/ML 3 ML Vial SUBCUT SCH ×3 (08:03→17:09)
[2020-06-16] MEDS: Enoxaparin 40 MG/0.4 ML Syringe SUBCUT SCH (19:35)
[2020-06-16] MEDS: Insulin Glargine,Human Rec. Analog 100 Units/ML 3 ML Pen SUBCUT SCH (19:36)
[2020-06-17] MEDS: Pantoprazole 40 MG Tab.CR PO SCH (06:55)
[2020-06-17] MEDS: ceFAZolin 1 GM Vial IVPUSH SCH ×3 (07:42→23:51)
[2020-06-17] MEDS: amLODIPine 10 MG Tab PO SCH (07:43)
[2020-06-17] MEDS: Metoprolol Tartrate 50 MG Tab PO SCH ×2 (07:43→20:25)
[2020-06-17] MEDS: Gabapentin 300 MG Cap PO SCH ×2 (07:43→20:25)
[2020-06-17] MEDS: Sertraline 25 MG Tab PO SCH (07:43)
[2020-06-17] MEDS: Furosemide 40 MG Tab PO SCH (07:44)
[2020-06-17] MEDS: Simvastatin 20 MG Tab PO SCH (07:44)
[2020-06-17] MEDS: Aspirin 325 MG Tab.EC PO SCH (07:44)
[2020-06-17] MEDS: Potassium Chloride 10 MEQ Tab.ER PO SCH ×2 (07:44→17:20)
[2020-06-17] MEDS: Spironolactone 25 MG Tab PO SCH (07:44)
[2020-06-17] MEDS: Multivitamin Tab PO SCH (07:45)
[2020-06-17] MEDS: Polyethylene Glycol 3350 Powder 17 GM Packet PO SCH (07:45)
[2020-06-17] MEDS: Cholecalciferol (Vitamin D3) 25 MCG Tab PO SCH (07:45)
[2020-06-17] MEDS: Fluticasone Propionate Nasal Spray 16 GM Bottle NASBOTH SCH (07:47)
[2020-06-17] MEDS: Insulin Lispro 100 Units/ML 3 ML Vial SUBCUT SCH ×3 (08:18→17:20)
--- NOTE | 2020-06-17 10:34 | PCM.PN ---
- General Info Date of Service: 06/17/20 Admission Dx/Problem (Free Text): Admission Diagnosis/Problem Admission Diagnosis/Problem Osteomyelitis of lower leg transferred from [place] [facility] bed for 40 days of IV antibiotics due to the osteomyelitis of the right knee. Subjective Update: Patient seen today for 30 day recert. Admitted for 6 weeks of IV antibiotic therapy due to abscess in right knee/osteomyelitis. Functional Status: Reports: Pain Controlled, Tolerating Diet, Ambulating - Review of Systems General: Denies: Fever, Weakness, Fatigue, Malaise HEENT: Denies: Sinus Congestion, Sore Throat Pulmonary: Denies: Shortness of Breath, Cough Cardiovascular: Denies: Chest Pain, Edema, Lightheadedness Gastrointestinal: Denies: Abdominal Pain, Nausea, Vomiting Genitourinary: Reports: No Symptoms Musculoskeletal: Reports: Joint Pain Skin: Reports: Other (redness to legs.) Neurological: Reports: No Symptoms - Patient Data Vitals - Most Recent: Last Vital Signs Temp 98.4 F 06/17/20 08:00 Pulse 66 06/17/20 08:00 Resp 16 06/17/20 08:00 BP 148/66 H 06/17/20 08:00 Pulse Ox 99 06/17/20 08:00 Weight - Most Recent: 193 lb 12.76 oz Lab Results Last 24 Hours: Laboratory Results - last 24 hr 06/15/20 06/16/20 06/16/20 Range/Units 21:21 07:55 11:37 WBC (5.0-10.0) 10^3/uL RBC (4.50-6.00) 10^6/uL Hgb (14.0-18.0) g/dL Hct (40.0-54.0) % MCV (82.0-94.0) fL MCH (27.0-32.0) pg MCHC (33.0-38.0) g/dL RDW Coeff of Anne (11.0-15.0) % Plt Count (150-400) 10^3/uL Neut % (Auto) (35-85) % Lymph % (Auto) (10-55) % [place] % (Auto) (0-16) % Eos % (Auto) (0-5) % Baso % (Auto) (0-3) % Neut # (Auto) (1.80-7.00) 10^3/uL Lymph # (Auto) (1.00-4.80) 10^3/uL [place] # (Auto) (0.00-0.80) 10^3/uL Eos # (Auto) (0.00-0.45) 10^3/uL Baso # (Auto) 10^3/uL BUN (7-18) mg/dL Creatinine (0.7-1.3) mg/dL Est Cr Clr Drug Dosing mL/min Estimated GFR (MDRD) (>=60) mL/min POC Glucose 369 H 160 H 248 H (75-105) mg/dl AST (15-37) U/L Alkaline Phosphatase (46-116) U/L C-Reactive Protein (0.2-0.8) mg/dL 06/16/20 06/16/20 06/17/20 Range/Units 17:08 20:40 05:00 WBC 6.4 (5.0-10.0) 10^3/uL RBC 4.49 L (4.50-6.00) 10^6/uL Hgb 12.6 L (14.0-18.0) g/dL Hct 39.3 L (40.0-54.0) % MCV 87.5 (82.0-94.0) fL MCH 28.1 (27.0-32.0) pg MCHC 32.1 L (33.0-38.0) g/dL RDW Coeff of Anne 14.9 (11.0-15.0) % Plt Count 276 (150-400) 10^3/uL Neut % (Auto) 57.4 (35-85) % Lymph % (Auto) 25.1 (10-55) % [place] % (Auto) 9.2 (0-16) % Eos % (Auto) 7.8 H (0-5) % Baso % (Auto) 0.5 (0-3) % Neut # (Auto) 3.68 (1.80-7.00) 10^3/uL Lymph # (Auto) 1.61 (1.00-4.80) 10^3/uL [place] # (Auto) 0.59 (0.00-0.80) 10^3/uL Eos # (Auto) 0.50 H (0.00-0.45) 10^3/uL Baso # (Auto) 0.03 10^3/uL BUN (7-18) mg/dL Creatinine (0.7-1.3) mg/dL Est Cr Clr Drug Dosing mL/min Estimated GFR (MDRD) (>=60) mL/min POC Glucose 300 H 337 H (75-105) mg/dl AST (15-37) U/L Alkaline Phosphatase (46-116) U/L C-Reactive Protein (0.2-0.8) mg/dL 06/17/20 Range/Units 05:00 WBC (5.0-10.0) 10^3/uL RBC (4.50-6.00) 10^6/uL Hgb (14.0-18.0) g/dL Hct (40.0-54.0) % MCV (82.0-94.0) fL MCH (27.0-32.0) pg MCHC (33.0-38.0) g/dL RDW Coeff of Anne (11.0-15.0) % Plt Count (150-400) 10^3/uL Neut % (Auto) (35-85) % Lymph % (Auto) (10-55) % [place] % (Auto) (0-16) % Eos % (Auto) (0-5) % Baso % (Auto) (0-3) % Neut # (Auto) (1.80-7.00) 10^3/uL Lymph # (Auto) (1.00-4.80) 10^3/uL [place] # (Auto) (0.00-0.80) 10^3/uL Eos # (Auto) (0.00-0.45) 10^3/uL Baso # (Auto) 10^3/uL BUN 27 H (7-18) mg/dL Creatinine 1.4 H (0.7-1.3) mg/dL Est Cr Clr Drug Dosing 53.59 mL/min Estimated GFR (MDRD) 51 L (>=60) mL/min POC Glucose (75-105) mg/dl AST 15 (15-37) U/L Alkaline Phosphatase 84 (46-116) U/L C-Reactive Protein < 0.2 L (0.2-0.8) mg/dL Med Orders - Current: Current Medications Acetaminophen (Tylenol) 650 mg PO Q4H PRN PRN Reason: Pain/Fever Last Admin: 06/12/20 20:29 Dose: 650 mg Documented by: Alprazolam (Xanax) 1 mg PO TID PRN PRN Reason: Anxiety Last Admin: 05/24/20 16:55 Dose: 1 mg Documented by: Amlodipine Besylate (Norvasc) 10 mg PO DAILY [facility] Last Admin: 06/17/20 07:43 Dose: 10 mg Documented by: Artificial Tears (Liquitears 1.4% Ophth Soln) 0 ml EYEBOTH ASDIRECTED PRN PRN Reason: Other Aspirin (Ecotrin) 325 mg PO DAILY [facility] Last Admin: 06/17/20 07:44 Dose: 325 mg Documented by: Cefazolin Sodium (Ancef) 2 gm IVPUSH Q8H [facility] Stop: 06/25/20 16:30 Last Admin: 06/17/20 07:42 Dose: 2 gm Documented by: Cholecalciferol (Vitamin D3) 50 mcg PO DAILY [facility] Last Admin: 06/17/20 07:45 Dose: 50 mcg Documented by: Cilostazol (Pletal) 100 mg PO DAILY [facility] Last Admin: 06/17/20 07:44 Dose: 100 mg Documented by: Cyanocobalamin (Vitamin B12) 1,000 mcg IM Q30D [facility] Last Admin: 05/20/20 09:41 Dose: 1,000 mcg Documented by: Enoxaparin Sodium (Lovenox) 40 mg SUBCUT Q24H [facility] Last Admin: 06/16/20 19:35 Dose: 40 mg Documented by: Fluticasone Propionate (Flonase) 0 gm NASBOTH DAILY [facility] Last Admin: 06/17/20 07:47 Dose: 1 spray Documented by: Furosemide (Lasix) 40 mg PO QAM [facility] Last Admin: 06/17/20 07:44 Dose: 40 mg Documented by: Gabapentin (Neurontin) 300 mg PO BID [facility] Last Admin: 06/17/20 07:43 Dose: 300 mg Documented by: Heparin Sodium (Porcine) (Heparin Lock Flush 100 Units/Ml) 300 units FLUSH Q8H [facility] Last Admin: 06/17/20 07:48 Dose: 300 units Documented by: Insulin Glargine (Lantus Solostar) 40 units SUBCUT BEDTIME [facility] Last Admin: 06/16/20 19:36 Dose: 40 units Documented by: Insulin Human Lispro (Humalog) 0 unit SUBCUT TIDMEALS [facility]; Protocol Last Admin: 06/17/20 08:18 Dose: 12 units Documented by: Lactulose (Cephulac) 30 gm PO TID PRN PRN Reason: Other Magnesium Oxide (Magnesium Oxide) 500 mg PO DAILY [facility] Last Admin: 06/17/20 07:43 Dose: 500 mg Documented by: Metoprolol Tartrate (Lopressor) 50 mg PO BID [facility] Last Admin: 06/17/20 07:43 Dose: 50 mg Documented by: Mometasone Furoate/Formoterol Fumar (Dulera 200-5 Mcg) 0 puff IH BID PRN PRN Reason: Shortness of Breath Multivitamins/Minerals/Vitamin C (Tab-A-Serjio) 1 tab PO DAILY [facility] Last Admin: 06/17/20 07:45 Dose: 1 tab Documented by: Oxycodone HCl (Oxycodone) 10 mg PO Q8H PRN PRN Reason: Pain Last Admin: 06/12/20 20:29 Dose: 10 mg Documented by: Pantoprazole Sodium (Protonix) 40 mg PO ACBREAKFAST [facility] Last Admin: 06/17/20 06:55 Dose: 40 mg Documented by: Polyethylene Glycol (Miralax) 17 gm PO DAILY [facility] Last Admin: 06/17/20 07:45 Dose: 17 gm Documented by: Potassium Chloride (Klor-Con 10) 20 meq PO BIDMEALS [facility] Last Admin: 06/17/20 07:44 Dose: 20 meq Documented by: Sertraline HCl (Zoloft) 50 mg PO DAILY [facility] Last Admin: 06/17/20 07:43 Dose: 50 mg Documented by: Simvastatin (Zocor) 20 mg PO DAILY [facility] Last Admin: 06/17/20 07:44 Dose: 20 mg Documented by: Spironolactone (Aldactone) 12.5 mg PO DAILY [facility] Last Admin: 06/17/20 07:44 Dose: 12.5 mg Documented by: Discontinued Medications Alprazolam (Xanax) 1 mg PO TID [facility] Last Admin: 05/18/20 07:46 Dose: 1 mg Documented by: Cefazolin Sodium (Ancef) 2 gm IVPUSH ONETIME ONE Stop: 05/16/20 17:31 Last Admin: 05/16/20 17:44 Dose: 2 gm Documented by: Heparin Sodium (Porcine) (Heparin Lock Flush 100 Units/Ml) 300 units FLUSH ONETIME ONE Stop: 05/16/20 17:31 Last Admin: 05/16/20 17:44 Dose: 300 units Documented by: Insulin Glargine (Lantus Solostar) 20 units SUBCUT BEDTIME [facility] Last Admin: 05/21/20 19:52 Dose: 20 units Documented by: Insulin Glargine (Lantus Solostar) 30 units SUBCUT BEDTIME [facility] Last Admin: 06/05/20 20:19 Dose: 30 units Documented by: Insulin Human Lispro (Humalog) 10 unit SUBCUT ONETIME ONE Stop: 05/19/20 20:49 Last Admin: 05/19/20 20:50 Dose: 10 unit Documented by: Insulin Human Lispro (Humalog) 10 unit SUBCUT STAT STA Stop: 05/27/20 20:20 Last Admin: 05/27/20 20:23 Dose: 10 units Documented by: Insulin Human Lispro (Humalog) 10 unit SUBCUT STAT STA Stop: 05/27/20 21:27 Last Admin: 05/27/20 21:30 Dose: 10 units Documented by: Insulin Human Lispro (Humalog) 10 unit SUBCUT ONETIME ONE Stop: 06/01/20 20:44 Last Admin: 06/01/20 21:22 Dose: 10 units Documented by: Mometasone Furoate/Formoterol Fumar (Dulera 200-5 Mcg) 0 puff IH BID PRN PRN Reason: Shortness of Breath Non-Formulary Medication (Insulin Aspart [Novolog]) 4 - 12 injection SUBCUT TID MARIE - Exam General: Alert, Oriented HEENT: Mucous Membr. Moist/[place] Neck: Supple Lungs: Clear to Auscultation, Normal Respiratory Effort Cardiovascular: Regular Rate, Regular Rhythm GI/Abdominal Exam: Normal Bowel Sounds, Soft, Non-Tender Extremities: Other (patient right knee is clean and dry. [place] skin tones to knee and lower legs. Mild deformity of knee, larger in size in comparison to left knee. Good flexion and extension. No tissue redness or warmth. Incision well healed) Skin: Warm, Dry Neurological: No New Focal Deficit Sepsis Event Note - Evaluation Sepsis Screening Result: No Definite Risk - Focused Exam Vital Signs: Vital Signs Temp Pulse Pulse Resp BP BP Pulse Ox 06/17/20 08:00 98.4 F 66 16 148/66 H 99 06/17/20 07:43 66 148/66 H - Problem List & Annotations (1) Osteomyelitis SNOMED Code(s): 08096653 Code(s): M86.9 - OSTEOMYELITIS, UNSPECIFIED Status: Acute Priority: High Current Visit: Yes Qualifiers: Osteomyelitis location: other site (2) Cellulitis of right knee SNOMED Code(s): 75963789916093700 Code(s): L03.115 - CELLULITIS OF RIGHT LOWER LIMB Status: Acute Priority: High Current Visit: Yes - Problem List Review Problem List Initiated/Reviewed/Updated: Yes - Assessment Assessment:: Osteomyelitis Right Knee - Plan Plan:: patient seen today for 30 day recert. Recommended 6 week of IV antibiotics for osteomyelitis in his right knee. is healing well. Continue therapy through June 23 as planned.
[2020-06-17] MEDS: Enoxaparin 40 MG/0.4 ML Syringe SUBCUT SCH (20:25)
[2020-06-17] MEDS: Insulin Glargine,Human Rec. Analog 100 Units/ML 3 ML Pen SUBCUT SCH (20:36)
[2020-06-18] MEDS: Pantoprazole 40 MG Tab.CR PO SCH (06:53)
[2020-06-18] MEDS: Furosemide 40 MG Tab PO SCH (08:03)
[2020-06-18] MEDS: Multivitamin Tab PO SCH (08:03)
[2020-06-18] MEDS: Spironolactone 25 MG Tab PO SCH (08:03)
[2020-06-18] MEDS: Simvastatin 20 MG Tab PO SCH (08:04)
[2020-06-18] MEDS: Gabapentin 300 MG Cap PO SCH ×2 (08:04→19:52)
[2020-06-18] MEDS: Potassium Chloride 10 MEQ Tab.ER PO SCH ×2 (08:05→17:32)
[2020-06-18] MEDS: Sertraline 25 MG Tab PO SCH (08:05)
[2020-06-18] MEDS: Aspirin 325 MG Tab.EC PO SCH (08:05)
[2020-06-18] MEDS: Cholecalciferol (Vitamin D3) 25 MCG Tab PO SCH (08:06)
[2020-06-18] MEDS: ceFAZolin 1 GM Vial IVPUSH SCH ×3 (08:07→23:48)
[2020-06-18] MEDS: Metoprolol Tartrate 50 MG Tab PO SCH ×2 (08:10→19:52)
[2020-06-18] MEDS: amLODIPine 10 MG Tab PO SCH (08:11)
[2020-06-18] MEDS: Fluticasone Propionate Nasal Spray 16 GM Bottle NASBOTH SCH (08:12)
[2020-06-18] MEDS: Insulin Lispro 100 Units/ML 3 ML Vial SUBCUT SCH ×3 (08:12→17:32)
[2020-06-18] MEDS: Polyethylene Glycol 3350 Powder 17 GM Packet PO SCH (08:15)
[2020-06-18] MEDS: Enoxaparin 40 MG/0.4 ML Syringe SUBCUT SCH (19:51)
[2020-06-18] MEDS: Insulin Glargine,Human Rec. Analog 100 Units/ML 3 ML Pen SUBCUT SCH (20:27)
[2020-06-19] MEDS: Insulin Lispro 100 Units/ML 3 ML Vial SUBCUT SCH ×3 (08:32→17:43)
[2020-06-19] MEDS: ceFAZolin 1 GM Vial IVPUSH SCH ×3 (08:34→23:57)
[2020-06-19] MEDS: Aspirin 325 MG Tab.EC PO SCH (08:36)
[2020-06-19] MEDS: Simvastatin 20 MG Tab PO SCH (08:36)
[2020-06-19] MEDS: Cholecalciferol (Vitamin D3) 25 MCG Tab PO SCH (08:37)
[2020-06-19] MEDS: Gabapentin 300 MG Cap PO SCH ×2 (08:37→19:11)
[2020-06-19] MEDS: Metoprolol Tartrate 50 MG Tab PO SCH ×2 (08:37→19:11)
[2020-06-19] MEDS: Sertraline 25 MG Tab PO SCH (08:37)
[2020-06-19] MEDS: amLODIPine 10 MG Tab PO SCH (08:38)
[2020-06-19] MEDS: Multivitamin Tab PO SCH (08:38)
[2020-06-19] MEDS: Spironolactone 25 MG Tab PO SCH (08:38)
[2020-06-19] MEDS: Pantoprazole 40 MG Tab.CR PO SCH (08:38)
[2020-06-19] MEDS: Fluticasone Propionate Nasal Spray 16 GM Bottle NASBOTH SCH (08:38)
[2020-06-19] MEDS: Furosemide 40 MG Tab PO SCH (08:38)
[2020-06-19] MEDS: Potassium Chloride 10 MEQ Tab.ER PO SCH ×2 (08:38→16:30)
[2020-06-19] MEDS: Polyethylene Glycol 3350 Powder 17 GM Packet PO SCH (08:43)
[2020-06-19] MEDS: Cyanocobalamin (Vitamin B12) 1,000 MCG/ML SDV IM SCH (11:09)
[2020-06-19] MEDS: Enoxaparin 40 MG/0.4 ML Syringe SUBCUT SCH (19:11)
[2020-06-19] MEDS: Insulin Glarg,Human.Rec.Analog 100 Unit/ML SUBCUT SCH (20:29)
[2020-06-20] MEDS: Pantoprazole 40 MG Tab.CR PO SCH (06:49)
[2020-06-20] MEDS: Sertraline 25 MG Tab PO SCH (07:35)
[2020-06-20] MEDS: Fluticasone Propionate Nasal Spray 16 GM Bottle NASBOTH SCH (07:35)
[2020-06-20] MEDS: Polyethylene Glycol 3350 Powder 17 GM Packet PO SCH (07:35)
[2020-06-20] MEDS: ceFAZolin 1 GM Vial IVPUSH SCH ×3 (07:35→23:51)
[2020-06-20] MEDS: Cholecalciferol (Vitamin D3) 25 MCG Tab PO SCH (07:36)
[2020-06-20] MEDS: Potassium Chloride 10 MEQ Tab.ER PO SCH ×2 (07:37→17:49)
[2020-06-20] MEDS: Furosemide 40 MG Tab PO SCH (07:37)
[2020-06-20] MEDS: Gabapentin 300 MG Cap PO SCH ×2 (07:37→20:12)
[2020-06-20] MEDS: Spironolactone 25 MG Tab PO SCH (07:37)
[2020-06-20] MEDS: Multivitamin Tab PO SCH (07:38)
[2020-06-20] MEDS: Simvastatin 20 MG Tab PO SCH (07:38)
[2020-06-20] MEDS: amLODIPine 10 MG Tab PO SCH (07:39)
[2020-06-20] MEDS: Aspirin 325 MG Tab.EC PO SCH (07:39)
[2020-06-20] MEDS: Metoprolol Tartrate 50 MG Tab PO SCH ×2 (07:39→20:12)
[2020-06-20] MEDS: Insulin Lispro 100 Units/ML 3 ML Vial SUBCUT SCH ×4 (07:41→17:46)
[2020-06-20] MEDS: Enoxaparin 40 MG/0.4 ML Syringe SUBCUT SCH (20:11)
[2020-06-20] MEDS: Insulin Glarg,Human.Rec.Analog 100 Unit/ML SUBCUT SCH (20:31)
[2020-06-21] MEDS: Pantoprazole 40 MG Tab.CR PO SCH (06:37)
[2020-06-21] MEDS: ceFAZolin 1 GM Vial IVPUSH SCH ×2 (07:26→16:09)
[2020-06-21] MEDS: Fluticasone Propionate Nasal Spray 16 GM Bottle NASBOTH SCH (07:26)
[2020-06-21] MEDS: Insulin Lispro 100 Units/ML 3 ML Vial SUBCUT SCH ×3 (07:28→17:29)
[2020-06-21] MEDS: Spironolactone 25 MG Tab PO SCH (07:30)
[2020-06-21] MEDS: amLODIPine 10 MG Tab PO SCH (07:30)
[2020-06-21] MEDS: Multivitamin Tab PO SCH (07:31)
[2020-06-21] MEDS: Aspirin 325 MG Tab.EC PO SCH (07:31)
[2020-06-21] MEDS: Metoprolol Tartrate 50 MG Tab PO SCH ×2 (07:31→20:19)
[2020-06-21] MEDS: Potassium Chloride 10 MEQ Tab.ER PO SCH ×2 (07:32→17:29)
[2020-06-21] MEDS: Sertraline 25 MG Tab PO SCH (07:32)
[2020-06-21] MEDS: Simvastatin 20 MG Tab PO SCH (07:32)
[2020-06-21] MEDS: Furosemide 40 MG Tab PO SCH (07:32)
[2020-06-21] MEDS: Gabapentin 300 MG Cap PO SCH ×2 (07:32→20:20)
[2020-06-21] MEDS: Cholecalciferol (Vitamin D3) 25 MCG Tab PO SCH (07:33)
[2020-06-21] MEDS: Polyethylene Glycol 3350 Powder 17 GM Packet PO SCH (07:35)
[2020-06-21] MEDS: Enoxaparin 40 MG/0.4 ML Syringe SUBCUT SCH (20:19)
[2020-06-21] MEDS: Insulin Glarg,Human.Rec.Analog 100 Unit/ML SUBCUT SCH (20:20)
[2020-06-22] MEDS: ceFAZolin 1 GM Vial IVPUSH SCH ×3 (00:55→17:00)
[2020-06-22] MEDS: Pantoprazole 40 MG Tab.CR PO SCH (06:35)
[2020-06-22] MEDS: Insulin Lispro 100 Units/ML 3 ML Vial SUBCUT SCH ×3 (08:02→17:04)
[2020-06-22] MEDS: Sertraline 25 MG Tab PO SCH (08:04)
[2020-06-22] MEDS: Aspirin 325 MG Tab.EC PO SCH (08:05)
[2020-06-22] MEDS: Furosemide 40 MG Tab PO SCH (08:05)
[2020-06-22] MEDS: Metoprolol Tartrate 50 MG Tab PO SCH ×2 (08:05→19:42)
[2020-06-22] MEDS: Cholecalciferol (Vitamin D3) 25 MCG Tab PO SCH (08:06)
[2020-06-22] MEDS: Potassium Chloride 10 MEQ Tab.ER PO SCH ×2 (08:07→17:01)
[2020-06-22] MEDS: Spironolactone 25 MG Tab PO SCH (08:07)
[2020-06-22] MEDS: Simvastatin 20 MG Tab PO SCH (08:07)
[2020-06-22] MEDS: Gabapentin 300 MG Cap PO SCH ×2 (08:07→19:42)
[2020-06-22] MEDS: Polyethylene Glycol 3350 Powder 17 GM Packet PO SCH (08:08)
[2020-06-22] MEDS: amLODIPine 10 MG Tab PO SCH (08:08)
[2020-06-22] MEDS: Multivitamin Tab PO SCH (08:08)
[2020-06-22] MEDS: Fluticasone Propionate Nasal Spray 16 GM Bottle NASBOTH SCH (08:09)
[2020-06-22] MEDS: Enoxaparin 40 MG/0.4 ML Syringe SUBCUT SCH (19:42)
[2020-06-22] MEDS: Insulin Glarg,Human.Rec.Analog 100 Unit/ML SUBCUT SCH (19:42)
[2020-06-23] MEDS: ceFAZolin 1 GM Vial IVPUSH SCH ×3 (00:47→16:39)
[2020-06-23] MEDS: Simvastatin 20 MG Tab PO SCH (07:01)
[2020-06-23] MEDS: Gabapentin 300 MG Cap PO SCH ×2 (07:01→19:18)
[2020-06-23] MEDS: amLODIPine 10 MG Tab PO SCH (07:02)
[2020-06-23] MEDS: Aspirin 325 MG Tab.EC PO SCH (07:02)
[2020-06-23] MEDS: Spironolactone 25 MG Tab PO SCH (07:02)
[2020-06-23] MEDS: Polyethylene Glycol 3350 Powder 17 GM Packet PO SCH (07:02)
[2020-06-23] MEDS: Furosemide 40 MG Tab PO SCH (07:02)
[2020-06-23] MEDS: Multivitamin Tab PO SCH (07:02)
[2020-06-23] MEDS: Sertraline 25 MG Tab PO SCH (07:02)
[2020-06-23] MEDS: Cholecalciferol (Vitamin D3) 25 MCG Tab PO SCH (07:02)
[2020-06-23] MEDS: Metoprolol Tartrate 50 MG Tab PO SCH ×2 (07:02→19:18)
[2020-06-23] MEDS: Potassium Chloride 10 MEQ Tab.ER PO SCH ×2 (07:02→16:39)
[2020-06-23] MEDS: Pantoprazole 40 MG Tab.CR PO SCH (07:02)
[2020-06-23] MEDS: Fluticasone Propionate Nasal Spray 16 GM Bottle NASBOTH SCH (07:03)
[2020-06-23] MEDS: Insulin Lispro 100 Units/ML 3 ML Vial SUBCUT SCH ×3 (08:04→17:34)
[2020-06-23] MEDS: Enoxaparin 40 MG/0.4 ML Syringe SUBCUT SCH (19:18)
[2020-06-23] MEDS: Insulin Glarg,Human.Rec.Analog 100 Unit/ML SUBCUT SCH (21:36)
[2020-06-24] MEDS: ceFAZolin 1 GM Vial IVPUSH SCH ×3 (00:50→15:33)
[2020-06-24 07:55] VITALS: BP 143/69; PULSE 78
[2020-06-24] MEDS: Insulin Lispro 100 Units/ML 3 ML Vial SUBCUT SCH ×2 (08:13→12:15)
[2020-06-24] MEDS: Aspirin 325 MG Tab.EC PO SCH (08:15)
[2020-06-24] MEDS: Potassium Chloride 10 MEQ Tab.ER PO SCH (08:15)
[2020-06-24] MEDS: Gabapentin 300 MG Cap PO SCH (08:15)
[2020-06-24] MEDS: Multivitamin Tab PO SCH (08:16)
[2020-06-24] MEDS: amLODIPine 10 MG Tab PO SCH (08:16)
[2020-06-24] MEDS: Furosemide 40 MG Tab PO SCH (08:16)
[2020-06-24] MEDS: Simvastatin 20 MG Tab PO SCH (08:17)
[2020-06-24] MEDS: Pantoprazole 40 MG Tab.CR PO SCH (08:17)
[2020-06-24] MEDS: Sertraline 25 MG Tab PO SCH (08:17)
[2020-06-24] MEDS: Spironolactone 25 MG Tab PO SCH (08:18)
[2020-06-24] MEDS: Metoprolol Tartrate 50 MG Tab PO SCH (08:18)
[2020-06-24] MEDS: Cholecalciferol (Vitamin D3) 25 MCG Tab PO SCH (08:18)
[2020-06-24] MEDS: Fluticasone Propionate Nasal Spray 16 GM Bottle NASBOTH SCH (08:19)
[2020-06-24] MEDS: Polyethylene Glycol 3350 Powder 17 GM Packet PO SCH (08:19)
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
== END 2020-06-24 16:17 | disposition home or self-care (01) | DRG 638 ==
LOC: CC.MS 14:30 → UNDOADMIN 14:30 → CC.MS 16:17
PROVIDERS: ADMIT Family Medicine; ATTEND Family Medicine
DX: E10.69 Type 1 diabetes mellitus with other specified complication (principal); M86.8X6 Other osteomyelitis, lower leg; I25.10 Atherosclerotic heart disease of native coronary artery without angina pectoris; I11.0 Hypertensive heart disease with heart failure; I50.9 Heart failure, unspecified; K21.9 Gastro-esophageal reflux disease without esophagitis; N40.0 Benign prostatic hyperplasia without lower urinary tract symptoms; M19.90 Unspecified osteoarthritis, unspecified site; F32.9 Major depressive disorder, single episode, unspecified; E10.51 Type 1 diabetes mellitus with diabetic peripheral angiopathy without gangrene; E10.42 Type 1 diabetes mellitus with diabetic polyneuropathy; E10.621 Type 1 diabetes mellitus with foot ulcer; E11.65 Type 2 diabetes mellitus with hyperglycemia; Z79.899 Other long term (current) drug therapy; Z79.4 Long term (current) use of insulin; Z79.82 Long term (current) use of aspirin; Z95.5 Presence of coronary angioplasty implant and graft; Z95.1 Presence of aortocoronary bypass graft; Z91.048 Other nonmedicinal substance allergy status
CPT/HCPCS: 36415; 80053; 82565; 82962; 84075; 84450; 84520; 85025; 86140; 97110-GP; 97164-GP; 97530-GP; A9270-GY; J0690; J1642; J1650; J1815-GY; J3420

== ENCOUNTER 2020-07-01 23:17 | Emergency (ER) | payer MEDICARE, MEDICAID ==
[2020-07-01 23:23] VITALS: BP 142/77; PULSE 91
--- NOTE | 2020-07-02 00:13 | EDM.PDOC ---
ED HPI GENERAL MEDICAL PROBLEM - General Chief Complaint: Lower Extremity Injury/Pain Stated Complaint: leg swelling Time Seen by Provider: 07/01/20 23:45 Source of Information: Reports: Patient History Limitations: Reports: No Limitations - History of Present Illness INITIAL COMMENTS - FREE TEXT/NARRATIVE: John is a 65 yo male who presents to the ED with c/o lower leg swelling. He has a longstanding history of issues with his legs. Was recently discharged from our swing bed unit following > 40 day stay for IV antibiotics for osteomyelitis. He reports that he noticed this evening that his legs were more swollen than usual. Denies any pain to area. Does have neuropathy. Is an uncontrolled type I DM. Reports the day he discharged from swing bed he fell and skinned up his knee. Other than leg swelling he denies any issues. No CP, shortness of breath. Does have CHF and is noncompliant. Onset: Today, Gradual Location: Reports: Lower Extremity, Left, Lower Extremity, Right Associated Symptoms: Reports: No Other Symptoms. Denies: Chest Pain, Cough, Fever/Chills, Shortness of Breath, Syncope - Related Data Allergies Allergy/AdvReac Type Severity Reaction Status Date / Time adhesive tape Allergy Rash Verified 07/01/20 23:19 Home Meds: Home Meds Insulin Aspart [NovoLOG] 4 - 12 injection SUBCUT TID 04/07/17 [History] Metoprolol Tartrate 50 mg PO BID 04/07/17 [History] Omeprazole 20 mg PO DAILY 04/07/17 [History] Rosuvastatin [Crestor] 5 mg PO DAILY 04/07/17 [History] Sertraline [Zoloft] 50 mg PO DAILY 04/07/17 [History] amLODIPine [Norvasc] 10 mg PO DAILY 04/07/17 [History] oxyCODONE 10 mg PO Q8H PRN 04/07/17 [History] Cholecalciferol (Vitamin D3) [D3-2000] 2,000 unit PO DAILY 05/11/17 [History] Furosemide [Lasix] 40 mg PO QAM 05/11/17 [History] Gabapentin [Neurontin] 300 mg PO BID 05/11/17 [History] Magnesium Oxide [Magnesium] 500 mg PO DAILY 05/11/17 [History] Multivitamin/Iron/Folic Acid [Centrum Adults Tablet] 1 each PO DAILY 05/11/17 [History] cilostazoL [Cilostazol] 100 mg PO DAILY 05/11/17 [History] Potassium Chloride [Klor-Con 10] 20 meq PO BIDMEALS #60 tab.er 05/12/17 [Rx] Spironolactone [Aldactone] 12.5 mg PO DAILY #30 tablet 05/12/17 [Rx] Budesonide/Formoterol [Symbicort 160-4.5 MCG] 2 puff INH BID PRN 02/13/20 [History] Cyanocobalamin (Vitamin B-12) [Cyanocobalamin Injection] 1,000 mcg IJ Q30D 02/13/20 [History] polyethylene glycoL 3350 [MiraLAX] 17 gm PO DAILY 02/13/20 [History] Fluticasone Propionate 1 spray NASBOTH DAILY 04/23/20 [History] Glucagon,Human Recombinant [Glucagon Emergency Kit] 1 mg IM ONETIME PRN 04/23/20 [History] Lactulose 30 ml PO TID PRN 04/23/20 [History] Polyvinyl Alcohol [LiquiTears 1.4% Ophth Soln] 1 drop EYEBOTH ASDIRECTED PRN 04/23/20 [History] Silver Sulfadiazine [Ssd] 1 applic TOP DAILY 04/23/20 [History] Insulin Detemir [Levemir Flextouch] 20 units SQ QPM 05/03/20 [History] ALPRAZolam [Alprazolam] 1 mg PO TID PRN 05/16/20 [History] Acetaminophen [Tylenol] 650 mg PO Q4H PRN 05/16/20 [History] Aspirin [Aspirin EC] 325 mg PO DAILY 05/16/20 [History] Past Medical History HEENT History: Reports: Allergic Rhinitis Cardiovascular History: Reports: CAD, Heart Failure, Hypertension, PVD, Stents Gastrointestinal History: Reports: GERD Genitourinary History: Reports: BPH Musculoskeletal History: Reports: Arthritis Neurological History: Reports: Neuropathy, Diabetic Psychiatric History: Reports: Depression Endocrine/Metabolic History: Reports: Diabetes, Type I Dermatologic History: Reports: Other (See Below) Other Dermatologic History: HX OF DIABETIC FOOT ULCER - Past Surgical History Cardiovascular Surgical History: Reports: Coronary Artery Bypass Social & Family History - Family History Family Medical History: Noncontributory - Tobacco Use Smoking Status *Q: Never Smoker - Caffeine Use Caffeine Use: Reports: None Review of Systems - Review of Systems Review Of Systems: Comprehensive ROS is negative, except as noted in HPI. ED EXAM, GENERAL - Physical Exam Exam: See Below Exam Limited By: No Limitations General Appearance: Alert, WD/WN, No Apparent Distress Head: Atraumatic, Normocephalic Respiratory/Chest: No Respiratory Distress, Lungs Clear, Normal Breath Sounds, No Accessory Muscle Use, Chest Non-Tender Cardiovascular: Normal Peripheral Pulses, Regular Rate, Rhythm, No Edema, No Gallop, No JVD, No Murmur, No Rub GI/Abdominal: Normal Bowel Sounds, Soft, Non-Tender, No Organomegaly, No Distention, No Abnormal Bruit, No Mass Extremities: Normal Range of Motion, Normal Capillary Refill, Pedal Edema (pitting +1 to left, trace to right), Other (scabs to right knee, mild blanchable erythema surrounding). No: Suzie's Sign, Leg Pain Neurological: Alert, Oriented, CN II-XII Intact, Normal Cognition, Normal Gait, Normal Reflexes, No Motor/Sensory Deficits Psychiatric: Normal Affect, Normal Mood Skin Exam: Other (scattered scabs to BLE, no warmth to BLE) Course - Vital Signs Last Recorded V/S: Last Vital Signs Temp 97.1 F 07/01/20 23:22 Pulse 91 07/01/20 23:22 Resp 18 07/01/20 23:22 BP 142/77 H 07/01/20 23:22 Pulse Ox 96 07/01/20 23:22 - Re-Assessments/Exams Free Text/Narrative Re-Assessment/Exam: Discussed with patient that this is a chronic issue for him and is not emergent. Discussed that I expect his legs to have some swelling, as he was lying in bed for the past few weeks and now has been up more. He is also noncompliant with diet. Discussed with patient that there is no need for emergent care regarding this. I see no signs of infection at this point. He then went on to ask me for coffee during this discussion. Reported to him that I would be discharging him home and he is to follow up with his PCP. Departure - Departure Time of Disposition: 00:09 Disposition: Home, Self-Care 01 Condition: Fair Clinical Impression: CHF, Congestive heart failure, Edema of both lower legs - Discharge Information Instructions: Heart Failure, Self Care, Living With Heart Failure Referrals: PCP,None [Ordering Only Provider] - Forms: ED Department Discharge Additional Instructions: - May increase furosemide to 80 mg daily for the next 3 days then reduce back down to 40 mg daily - Reduce salt intake - Try to elevated legs whenever possible - Recommend wearing Gopal Socks during the day off at night - Use walker or cane for assistive device while ambulating to prevent fall - Follow up with Dr. Huber 1 week as previously scheduled - Return to ED for EMERGENT needs Sepsis Event Note (ED) - Evaluation Sepsis Screening Result: No Definite Risk - Focused Exam Vital Signs: Vital Signs Temp Pulse Resp BP Pulse Ox 07/01/20 23:22 97.1 F 91 18 142/77 H 96 - Problem List & Annotations (1) Edema of both lower legs SNOMED Code(s): 738836600 Code(s): R60.0 - LOCALIZED EDEMA Status: Acute (2) CHF, Congestive heart failure SNOMED Code(s): 51961571 Code(s): I50.9 - HEART FAILURE, UNSPECIFIED Status: Chronic (3) Uncontrolled diabetes mellitus SNOMED Code(s): 77271091, 891309986 Code(s): E11.65 - TYPE 2 DIABETES MELLITUS WITH HYPERGLYCEMIA Status: Chronic Priority: High Qualifiers: Diabetes mellitus type: type 2 Glycemic state: with hyperglycemia Qualified Code(s): E11.65 - Type 2 diabetes mellitus with hyperglycemia - Assessment/Plan Assessment:: Edema BLE CHF Uncontrolled DM Type 1 Plan: No emergent findings. No s/s of worsening infection. This patient is well known to us. His legs are much improved from the last time I evaluated him. Does have 1+ pitting edema to LLE but only trace edema to RLE, but this is expected as patient has been up more than he has in some time. Discussed this dependent edema with him. No calor or drainage. Wounds have healed appropriately. He asks for IV to "give himself IV lasix every time he has swelling." I reported to him this is not indicated. Did say he could increase his lasix to 80 mg daily for the next 3 days then resume to previous dosing. Patient unhappy he is not being admitted, but I have no indication to admit him to the hospital. He is discharged from facility in satisfactory condition and is advised to follow up with his PCP Dr. Huber in 1 week as previously scheduled. Is advised to follow up sooner or return to ED for emergent needs.
== END 2020-07-02 00:20 | disposition home or self-care (01) ==
LOC: CC.ED 23:17
DX: I11.0 Hypertensive heart disease with heart failure (principal); I50.9 Heart failure, unspecified; I25.810 Atherosclerosis of coronary artery bypass graft(s) without angina pectoris; R60.0 Localized edema; E10.40 Type 1 diabetes mellitus with diabetic neuropathy, unspecified; K21.9 Gastro-esophageal reflux disease without esophagitis; M19.90 Unspecified osteoarthritis, unspecified site; F32.9 Major depressive disorder, single episode, unspecified; Z91.048 Other nonmedicinal substance allergy status; Z79.82 Long term (current) use of aspirin; Z79.4 Long term (current) use of insulin; Z95.5 Presence of coronary angioplasty implant and graft; Z79.899 Other long term (current) drug therapy
CPT/HCPCS: 99283